=== PATIENT | female | born 1935 | race Caucasian/White ===

== ENCOUNTER → 2024-08-03 14:22 | Outpatient (CLI) | payer MEDICARE, OTHER, SELFPAY ==
--- NOTE | 2024-08-03 14:32 | DI.MRI.S_ITS ---
PROCEDURE: MR HIP RT WO CON INDICATIONS: RT GROIN PAIN,RT HIP PAIN TECHNIQUE: Noncontrast coronal T1 spin echo and STIR through the bony pelvis. Coronal and axial T2 fast spin echo with fat saturation, sagittal T1 spin echo, and oblique axial T2 fast spin echo with fat saturation through the hip. COMPARISON: None. FINDINGS: Image quality: Excellent. Bones: The marrow signal is heterogenous, which may be secondary to underlying red marrow reconversion or osteopenia. Additionally, there is marrow edema at the right subcapital femoral neck (3/17), with corresponding T1 hypointense fracture lines. There is no femoral head osteonecrosis at this time. 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 There is no significant hip joint effusion. Pericapsular edema is present around the right hip secondary to the recent fracture (3/17). Acetabular cartilage: There is mild thinning of the right hip central acetabular cartilage (6/13) Labrum: There is blunting of the right hip anterior-superior labrum, likely secondary to chronic labral tearing. Bursae: There is a small amount of fluid in the left hip greater trochanteric bursa (3/14) along with fluid signal along the distal iliotibial band (3/17). There is a trace amount of fluid in the right greater trochanteric bursa (3/15). Muscles: Mild intramuscular edema is present in the right gluteus minimus/medius musculature (3/19) as well as the proximal right abductor musculature (4/29). 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 Tendons: There is fluid signal involving the majority of the right hamstring tendon origin at the ischial tuberosity (3/12). There is intermediate signal involving the insertions of the bilateral gluteus minimus and medius tendons on the greater trochanters bilaterally. Nerves: The right sciatic nerve is normal in signal and caliber. Vessels: The dominant flow voids are preserved. Other: Moderate lower lumbar osteoarthrosis (2/13). IMPRESSION: 1. Subacute right proximal femoral subcapital neck fracture with reactive pericapsular edema and adjacent muscle strains. 2. High-grade partial tearing of the right hamstring origin tendon with superimposed tendinosis. 3. Mild left hip and trace right hip greater trochanteric bursitis. 4. Partial tear of the left distal iliotibial band. 5. Mild tendinosis involving the bilateral gluteus minimus and medius tendon attachments at the greater trochanters. Dictated by: Alejandro Zavala M.D. on 08/03/2024 at 16:56 Approved by: Alejandro Zavala M.D. on 08/03/2024 at 17:06
== END ==
PROVIDERS: PCP Specialist; Referring Provider Specialist; Visit Provider Specialist
DX: S76.811A Strain of other specified muscles, fascia and tendons at thigh level, right thigh, initial encounter (principal); S72.011A Unspecified intracapsular fracture of right femur, initial encounter for closed fracture; S76.012A Strain of muscle, fascia and tendon of left hip, initial encounter; M16.0 Bilateral primary osteoarthritis of hip; M71.552 Other bursitis, not elsewhere classified, left hip; M47.898 Other spondylosis, sacral and sacrococcygeal region; M25.551 Pain in right hip; R10.31 Right lower quadrant pain
CPT/HCPCS: 73721

== ENCOUNTER 2024-08-03 15:40 | Inpatient (IN) | payer MEDICARE, OTHER, SELFPAY ==
[2024-08-03] VITALS (18 sets, daily range): BP systolic 157–206; BP diastolic 64–91; PULSE 73–82; RESP 18–19; TEMP 36.9–37.1; O2SAT 91–98; BMI 23.3; BMI 23.8
--- NOTE | 2024-08-03 17:12 | DI.RAD.S_ITS ---
PROCEDURE: XR CHEST 1V INDICATIONS: preop TECHNIQUE: One view of the chest was acquired. COMPARISON: [facility], MR, MR HIP RT WO CON, 08/03/2024, 14:43. FINDINGS: Surgical changes and devices: None. Lungs and pleura: Lungs are clear. No pleural effusions or pneumothorax. Mediastinum: Mediastinal contours appear normal. Heart size is normal. Bones and chest wall: No suspicious bony lesions. Overlying soft tissues appear unremarkable. IMPRESSION: No acute cardiopulmonary abnormality is seen. Dictated by: Asher Eubanks M.D. on 08/03/2024 at 18:06 Approved by: Asher Eubanks M.D. on 08/03/2024 at 18:08
--- NOTE | 2024-08-03 17:12 | ED.RECABL ---
HPI - Recheck/Abnormal Lab/Rx <Kaleb Casanova MD - Last Filed: 08/03/24 17:12> General Chief Complaint: Recheck/Abnormal Lab/Rx Stated Complaint: sent over from MRI something wrong Time Seen by Provider: 08/03/24 17:10 Source: patient Mode of arrival: Wheelchair Related Data Allergies Allergy/AdvReac Type Severity Reaction Status Date / Time bee venom protein (honey bee) Allergy Anaphylaxis Verified 08/03/24 15:53 Penicillins Allergy Rash Verified 08/03/24 15:53 <Jeff Palafox DO - Last Filed: 08/03/24 21:22> History of Present Illness HPI narrative: 89-year-old female with a history of hypertension presenting for abnormal MRI of her right hip, states that she had a mechanical trip and fall approximately 2 weeks ago was able to stand bear weight ambulate but had persistent/worsening pain to her right hip therefore her primary care doctor ordered MRI, was obtained here and showed fracture of the hip therefore we instructed come into the ED. denies any other symptoms at this time no head strike no LOC not on any blood thinners Review of Systems <Jeff Palafox DO - Last Filed: 08/03/24 21:22> Review of Systems Narrative: General: Denies fever, chills, weight loss HEENT: Denies headache, eye drainage, eye irritation, head trauma, sore throat, voice change Cardiovascular: Denies any chest pain, palpitations, shortness of breath, tachycardia Respiratory: Denies any shortness of breath, cough, wheeze, stridor GI/: Denies any abdominal pain, nausea, vomiting, diarrhea, bright red blood per rectum, melanotic stools, urinary frequency, urinary retention, dysuria, hematuria MSK: Positive right hip pain Skin: Denies any rashes, lesions, discoloration Neuro: Denies any headache, lightheadedness, dizziness, fainting, weakness Psych: Denies SI/HI Patient History <Kaleb Casanova MD - Last Filed: 08/03/24 17:12> Medical History (Updated 08/03/24 @ 21:03 by Maxine Beasley MD) Hypertension, uncontrolled Closed fracture of right hip Social History Smoking Status: Never smoker Smoking Status: Never smoker Exam <Kaleb Casanova MD - Last Filed: 08/03/24 17:12> Initial Vital Signs Initial Vital Signs: Vital Signs Temperature 98.8 F 08/03/24 15:53 Pulse Rate 79 08/03/24 15:53 Respiratory Rate 18 08/03/24 15:53 Blood Pressure 176/78 H 08/03/24 15:53 Pulse Oximetry 96 08/03/24 15:53 Oxygen Delivery Method Room Air 08/03/24 15:53 <Jeff Palafox DO - Last Filed: 08/03/24 21:22> Narrative Exam Narrative: General: Cooperative, comfortable, well-developed, not in acute distress HEENT: Normocephalic, atraumatic, PERRLA, normal sclera, eyelids normal, Neck: Active full range of motion, atraumatic Chest: Normal to inspection, negative crepitus, no overlying erythema ecchymosis Respiratory: Normal respiratory effort, not in acute respiratory distress, clear to auscultation bilaterally negative cough, wheeze, tachypnea, rhonchi, rales Cardiology: Regular rate rhythm negative gallop, murmur, rubs GI/: Normal to inspection, soft, nonrigid, no tenderness to palpation, exam deferred MSK: Patient with decreased active passive range of motion of the right hip secondary to pain, however lower extremity neurovascularly intact Skin: No rashes lesions noted Neuro: Alert awake oriented x3, moves all 4 extremities spontaneously, cranial nerves intact, able to answer all questions appropriately follows commands appropriately Psych: Cooperative, negative suicidal or homicidal ideations Initial Vital Signs Initial Vital Signs: Vital Signs Temperature 98.8 F 08/03/24 15:53 Pulse Rate 79 08/03/24 15:53 Respiratory Rate 18 08/03/24 15:53 Blood Pressure 176/78 H 08/03/24 15:53 Pulse Oximetry 96 08/03/24 15:53 Oxygen Delivery Method Room Air 08/03/24 15:53 Course <Kaleb Casanova MD - Last Filed: 08/03/24 17:12> Orders Ordered: ED Orders 08/03/24 17:12 Chest [XR chest 1V] Stat EKG-12 Lead Stat 08/03/24 17:55 CBC Auto Diff [Complete Blood Count AUTO DIFF] Stat CMP [Comprehensive Metabolic Panel] Stat Prothrombin Time INR Stat 08/03/24 19:45 XR hip w pel if done RT 2V Stat Discontinued Medications Amlodipine Besylate (Amlodipine 5 Mg Tablet) 2.5 mg PO NOW ONE Stop: 08/03/24 19:42 Last Admin: 08/03/24 19:52 Dose: 2.5 mg Documented By: MR Hydromorphone HCl (Hydromorphone 0.5 Mg Inj) 0.5 mg IV NOW ONE Stop: 08/03/24 17:13 Last Admin: 08/03/24 17:32 Dose: 0.5 mg Documented By: SRIDHAR Losartan Potassium (Losartan 50 Mg Tablet) 50 mg PO NOW ONE Stop: 08/03/24 19:42 Last Admin: 08/03/24 19:51 Dose: 50 mg Documented By: MR Ondansetron HCl (Ondansetron 4 Mg/2 Ml Inj) 4 mg IV NOW ONE Stop: 08/03/24 17:25 Last Admin: 08/03/24 17:32 Dose: 4 mg Documented By: SRIDHAR Potassium Chloride (Potassium Chloride 20 Meq/15 Ml Udc) 40 meq PO NOW ONE Stop: 08/03/24 20:21 Last Admin: 08/03/24 20:43 Dose: 40 meq Documented By: MR Vital Signs Vital signs: Vital Signs - 8 hr 08/03/24 15:53 08/03/24 17:15 08/03/24 17:30 Temperature 98.8 F Pulse Rate 79 81 Respiratory Rate 18 Blood Pressure 176/78 H 170/74 H Pulse Oximetry 96 96 Oxygen Delivery Method Room Air 08/03/24 17:30 08/03/24 17:54 08/03/24 17:54 Temperature Pulse Rate 80 76 Respiratory Rate Blood Pressure 170/74 H Pulse Oximetry 96 95 Oxygen Delivery Method 08/03/24 18:00 08/03/24 18:00 08/03/24 18:15 Temperature Pulse Rate 75 Respiratory Rate Blood Pressure 167/75 H 157/64 H Pulse Oximetry 94 Oxygen Delivery Method 08/03/24 18:15 08/03/24 18:30 08/03/24 18:30 Temperature Pulse Rate 76 74 Respiratory Rate Blood Pressure 186/86 H Pulse Oximetry 91 97 Oxygen Delivery Method 08/03/24 18:45 08/03/24 18:45 Temperature Pulse Rate 73 Respiratory Rate Blood Pressure 188/77 H Pulse Oximetry 95 Oxygen Delivery Method <Jeff Palafox DO - Last Filed: 08/03/24 21:22> Orders Ordered: ED Orders 08/03/24 17:12 Chest [XR chest 1V] Stat EKG-12 Lead Stat 08/03/24 17:55 CBC Auto Diff [Complete Blood Count AUTO DIFF] Stat CMP [Comprehensive Metabolic Panel] Stat Prothrombin Time INR Stat 08/03/24 19:45 XR hip w pel if done RT 2V Stat Discontinued Medications Amlodipine Besylate (Amlodipine 5 Mg Tablet) 2.5 mg PO NOW ONE Stop: 08/03/24 19:42 Last Admin: 08/03/24 19:52 Dose: 2.5 mg Documented By: Hydromorphone HCl (Hydromorphone 0.5 Mg Inj) 0.5 mg IV NOW ONE Stop: 08/03/24 17:13 Last Admin: 08/03/24 17:32 Dose: 0.5 mg Documented By: SRIDHAR Losartan Potassium (Losartan 50 Mg Tablet) 50 mg PO NOW ONE Stop: 08/03/24 19:42 Last Admin: 08/03/24 19:51 Dose: 50 mg Documented By: MR Ondansetron HCl (Ondansetron 4 Mg/2 Ml Inj) 4 mg IV NOW ONE Stop: 08/03/24 17:25 Last Admin: 08/03/24 17:32 Dose: 4 mg Documented By: SRIDHAR Potassium Chloride (Potassium Chloride 20 Meq/15 Ml Udc) 40 meq PO NOW ONE Stop: 08/03/24 20:21 Last Admin: 08/03/24 20:43 Dose: 40 meq Documented By: Vital Signs Vital signs: Vital Signs - 8 hr 08/03/24 15:53 08/03/24 17:15 08/03/24 17:30 Temperature 98.8 F Pulse Rate 79 81 Respiratory Rate 18 Blood Pressure 176/78 H 170/74 H Pulse Oximetry 96 96 Oxygen Delivery Method Room Air 08/03/24 17:30 08/03/24 17:54 08/03/24 17:54 Temperature Pulse Rate 80 76 Respiratory Rate Blood Pressure 170/74 H Pulse Oximetry 96 95 Oxygen Delivery Method 08/03/24 18:00 08/03/24 18:00 08/03/24 18:15 Temperature Pulse Rate 75 Respiratory Rate Blood Pressure 167/75 H 157/64 H Pulse Oximetry 94 Oxygen Delivery Method 08/03/24 18:15 08/03/24 18:30 08/03/24 18:30 Temperature Pulse Rate 76 74 Respiratory Rate Blood Pressure 186/86 H Pulse Oximetry 91 97 Oxygen Delivery Method 08/03/24 18:45 08/03/24 18:45 Temperature Pulse Rate 73 Respiratory Rate Blood Pressure 188/77 H Pulse Oximetry 95 Oxygen Delivery Method MDM - Recheck/Abnormal Lab/Rx <Kaleb Casanova MD - Last Filed: 08/03/24 17:12> Lab Data 08/03/24 17:55 08/03/24 17:55 Labs: Lab Results 08/03/24 Range/Units 17:55 WBC 8.6 (4.5-11.0) X10^3/uL RBC 4.08 (4.0-5.2) X10^6/uL Hgb 13.2 (12.0-16.0) g/dL Hct 38.8 (36-46) % MCV 95.1 (80-100) fL MCH 32.3 (26-34) PG MCHC 34.0 (30-36) % RDW 13.5 (11.6-14.8) % Plt Count 198 (150-400) X10^3/uL Neut % (Auto) 68.5 (50-75) % Lymph % (Auto) 19.2 L (25-40) % [place] % (Auto) 8.5 (3-14) % Eos % (Auto) 2.8 (2-4) % Baso % (Auto) 1.0 (0-2) % Neut # (Auto) 5900 (0222-9331) /uL Lymph # (Auto) 1700 (0436-7776) /uL [place] # (Auto) 700 (0-900) /uL Eos # (Auto) 200 (0-450) /uL Baso # (Auto) 100 (0-100) /uL PT 11.3 (9.4-12.5) SECONDS INR 1.0 (0.9-1.3) Sodium 138 (137-145) mmol/L Potassium 3.3 L (3.4-5.1) mmol/L Chloride 103 (98-107) mmol/L Carbon Dioxide 27 (22-32) mmol/L BUN 22 H (7-17) mg/dL Creatinine 0.66 (0.52-1.04) mg/dL Estimated GFR > 60 (>60) mL/min BUN/Creatinine Ratio 33.3 H (6-22) Glucose 89 (80-110) mg/dL Calcium 8.9 (8.4-10.2) mg/dL Total Bilirubin 1.0 (0.2-1.3) mg/dL AST 26 (14-36) IU/L ALT 16 (<35) IU/L Alkaline Phosphatase 57 (38-126) U/L Total Protein 6.8 (6.3-8.2) g/dL Albumin 4.1 (3.5-5.0) g/dL Globulin 2.7 (1.7-4.1) g/dL Albumin/Globulin Ratio 1.5 (1.0-2.8) <Jeff Palafox DO - Last Filed: 08/03/24 21:22> Differential Diagnosis Differential diagnosis: Likely other (Fracture contusion) Lab Data Labs: Lab Results 08/03/24 Range/Units 17:55 WBC 8.6 (4.5-11.0) X10^3/uL RBC 4.08 (4.0-5.2) X10^6/uL Hgb 13.2 (12.0-16.0) g/dL Hct 38.8 (36-46) % MCV 95.1 (80-100) fL MCH 32.3 (26-34) PG MCHC 34.0 (30-36) % RDW 13.5 (11.6-14.8) % Plt Count 198 (150-400) X10^3/uL Neut % (Auto) 68.5 (50-75) % Lymph % (Auto) 19.2 L (25-40) % [place] % (Auto) 8.5 (3-14) % Eos % (Auto) 2.8 (2-4) % Baso % (Auto) 1.0 (0-2) % Neut # (Auto) 5900 (9343-8154) /uL Lymph # (Auto) 1700 (5606-6666) /uL [place] # (Auto) 700 (0-900) /uL Eos # (Auto) 200 (0-450) /uL Baso # (Auto) 100 (0-100) /uL PT 11.3 (9.4-12.5) SECONDS INR 1.0 (0.9-1.3) Sodium 138 (137-145) mmol/L Potassium 3.3 L (3.4-5.1) mmol/L Chloride 103 (98-107) mmol/L Carbon Dioxide 27 (22-32) mmol/L BUN 22 H (7-17) mg/dL Creatinine 0.66 (0.52-1.04) mg/dL Estimated GFR > 60 (>60) mL/min BUN/Creatinine Ratio 33.3 H (6-22) Glucose 89 (80-110) mg/dL Calcium 8.9 (8.4-10.2) mg/dL Total Bilirubin 1.0 (0.2-1.3) mg/dL AST 26 (14-36) IU/L ALT 16 (<35) IU/L Alkaline Phosphatase 57 (38-126) U/L Total Protein 6.8 (6.3-8.2) g/dL Albumin 4.1 (3.5-5.0) g/dL Globulin 2.7 (1.7-4.1) g/dL Albumin/Globulin Ratio 1.5 (1.0-2.8) Imaging Data MRi hip: Radiologist's Impression: [place] [address] Magnetic Resonance Report Signed Patient: Rebecca Carpenter MR#: [id number] : 1935 Acct:[id number] Age/Sex: 89 / F Date of Service: 08/03/24 Loc: MRI Accession Number: [id number] Procedure: MR hip RT wo con Ordering Provider: Kalie Barragan MD PROCEDURE: MR HIP RT WO CON INDICATIONS: RT GROIN PAIN,RT HIP PAIN TECHNIQUE: Noncontrast coronal T1 spin echo and STIR through the bony pelvis. Coronal and axial T2 fast spin echo with fat saturation, sagittal T1 spin echo, and oblique axial T2 fast spin echo with fat saturation through the hip. COMPARISON: None. FINDINGS: Image quality: Excellent. Bones: The marrow signal is heterogenous, which may be secondary to underlying red marrow reconversion or osteopenia. Additionally, there is marrow edema at the right subcapital femoral neck (09/12), with corresponding T1 hypointense fracture lines. There is no femoral head osteonecrosis at this time. 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 There is no significant hip joint effusion. Pericapsular edema is present around the right hip secondary to the recent fracture (3/17). Acetabular cartilage: There is mild thinning of the right hip central acetabular cartilage (6/13) Labrum: There is blunting of the right hip anterior-superior labrum, likely secondary to chronic labral tearing. Bursae: There is a small amount of fluid in the left hip greater trochanteric bursa (3/14) along with fluid signal along the distal iliotibial band (3/17). There is a trace amount of fluid in the right greater trochanteric bursa (3/15). Muscles: Mild intramuscular edema is present in the right gluteus minimus/medius musculature (3/19) as well as the proximal right abductor musculature (4/29). 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 Tendons: There is fluid signal involving the majority of the right hamstring tendon origin at the ischial tuberosity (3/12). There is intermediate signal involving the insertions of the bilateral gluteus minimus and medius tendons on the greater trochanters bilaterally. Nerves: The right sciatic nerve is normal in signal and caliber. Vessels: The dominant flow voids are preserved. Other: Moderate lower lumbar osteoarthrosis (2/13). IMPRESSION: 1. Subacute right proximal femoral subcapital neck fracture with reactive pericapsular edema and adjacent muscle strains. 2. High-grade partial tearing of the right hamstring origin tendon with superimposed tendinosis. 3. Mild left hip and trace right hip greater trochanteric bursitis. 4. Partial tear of the left distal iliotibial band. 5. Mild tendinosis involving the bilateral gluteus minimus and medius tendon attachments at the greater trochanters. MDM Narrative Medical decision making narrative: 1800: (Dr. Palafox) Received sign-out from morning provider, patient presenting for abnormal MRI, states that she had a mechanical trip and fall few weeks ago has been having pain since outpatient MRI showing hip fracture, pending lab work ortho consulted admission/further recommendation. 194: Had discussion with orthopedic surgeon Dr. Caro who recommends obtaining plain x-rays of the right hip, states it keep patient NPO we will plan to fix/send her to surgery tomorrow morning recommending admission to the hospitalist. Call placed out the hospitalist for admission. The patient's management plan was discussed Dr. Beasley, who agrees to admit the patient to their service and assumes care of this patient at this time. Full admission orders will be placed by the primary team. Discharge Plan Departure Patient Disposition: Admitted As Inpatient Clinical Impression: Closed fracture of right hip Admit Date/Time: 08/03/24 20:21 Admit Provider: Maxine Beasley
--- NOTE | 2024-08-03 17:22 | EKG_ITS ---
[facility] [address] [place] [address] Test Date: 2024-08-03 Pat Name: Rebecca Carpenter Department: [facility] Room: Gender: Female [employer] Adjuster: HUA : 1935 Requested By: Order Number: [id number] Reading MD: Jeff Mckeon Measurements Intervals [place] Rate: 79 P: 52 MO: 200 QRS: 32 QRSD: 100 T: 48 QT: 400 QTc: 458 Interpretive Statements Sinus rhythm with premature supraventricular complexes Left ventricular hypertrophy with repolarization abnormality ( Sokolow-Vale , Sae product ) Electronically Signed On 08-03-2024 23:46:27 PST by Jeff Mckeon
[2024-08-03] MEDS: ONDANSETRON 4 MG/2 ML INJ IV ×2 (17:32→22:41)
[2024-08-03] MEDS: HYDROMORPHONE 0.5 MG INJ IV ×2 (17:32→22:31)
[2024-08-03 18:01] LABS: Add Manual Diff / Slide Review NO; Basophils Absolute Auto 100 /uL (0-100); Eosinophils Absolute Auto 200 /uL (0-450); Eosinophils Percent Auto 2.8 % (2-4); Hematocrit 38.8 % (36-46); Hemoglobin 13.2 g/dL (12.0-16.0); Lymphocytes Absolute Auto 1700 /uL (1100-4500); Lymphocytes Percent Auto 19.2 % (25-40); Mean Corpuscular Hemoglobin 32.3 PG (26-34); Mean Corpuscular Volume 95.1 fL (80-100); Monocytes Absolute Auto 700 /uL (0-900); Monocytes Percent Auto 8.5 % (3-14); Neutrophils Absolute Auto 5900 /uL (1500-7000); Neutrophils Percent Auto 68.5 % (50-75); Platelet Count 198 X10^3/uL (150-400); Red Blood Cell Count 4.08 X10^6/uL (4.0-5.2); Red Cell Distribution Width 13.5 % (11.6-14.8); White Blood Cell Count 8.6 X10^3/uL (4.5-11.0)
[2024-08-03 18:09] LABS: Prothrombin Time 11.3 SECONDS (9.4-12.5)
[2024-08-03 18:22] LABS: Alanine Aminotransferase 16 IU/L (<35); Albumin 4.1 g/dL (3.5-5.0); Albumin Globulin Ratio 1.5 (1.0-2.8); Alkaline Phosphatase 57 U/L (38-126); Aspartate Aminotransferase 26 IU/L (14-36); BUN Creatinine Ratio 33.3 (6-22); Blood Urea Nitrogen 22 mg/dL (7-17); Calcium 8.9 mg/dL (8.4-10.2); Carbon Dioxide 27 mmol/L (22-32); Chloride 103 mmol/L (98-107); Estimated Glomerular Filt Rate > 60 mL/min (>60); Globulin 2.7 g/dL (1.7-4.1); Glucose 89 mg/dL (80-110); HEMOLYSIS < 15 (0-50); Potassium 3.3 mmol/L (3.4-5.1); Sodium 138 mmol/L (137-145); Total Protein 6.8 g/dL (6.3-8.2)
--- NOTE | 2024-08-03 19:45 | DI.RAD.S_ITS ---
PROCEDURE: XR HIP W PEL IF DONE RT 2V INDICATIONS: hip fx TECHNIQUE: AP pelvis with lateral view(s) of the right hip(s). COMPARISON: None. FINDINGS: Bones: Acute fracture involving subcapital region of right femoral neck with superior and anterior displacement of proximal femur in relation to femoral head. Moderate bilateral hip joint osteoarthritic changes are seen. No evidence of avascular necrosis of femoral head. Pelvic ring appears intact. No suspicious bony lesions. Soft tissues: The visualized bowel gas pattern is normal. No suspicious soft tissue calcifications. IMPRESSION: Acute displaced fracture involving subcapital region of right femoral neck as above. Dictated by: Henry Diallo M.D. on 08/03/2024 at 20:36 Approved by: Henry Diallo M.D. on 08/03/2024 at 20:37
[2024-08-03] MEDS: LOSARTAN 50 MG TABLET PO (19:51)
[2024-08-03] MEDS: AMLODIPINE 5 MG TABLET 2.5 MG PO (19:52)
[2024-08-03] MEDS: POTASSIUM CHLORIDE 20 MEQ/15 ML UDC 40 MEQ PO (20:43)
--- NOTE | 2024-08-03 20:57 | P.HP_ITS ---
History of Present Illness History of Present Illness Date Patient Seen: 08/03/24 Chief complaint: sent over from MRI something wrong R hip pain Narrative: Rebecca Carpenter is an 89 y/o F with history of HTN, HLD, Hypokalemia ( takes Potasium supplement) Post menopausal hormone replacement, Anxiety, who gives history of tripping on a mat in her kitchen, and falling on her R side on to the kitchen's hard wood floor, she did not hit her head, and remained conscious, throughout, she was able to get up, and had been able to bear weight on her RLE, however with on going moderate Pain in her R hip. Her fall occurred about 2 weeks ago, on a Thursday. On following Thursday she was seen at local ED ( pt lives at one of the [facility]), an XR of her R hip done, and pt was told, no fracture of her R hip seen. She went home, but continued with R hip pain, on weight bearing especialy on her RLE. She saw her PCP, last , and a routine MRI of R hip ordered. Pt was able to have her MRI R hip done and was sent from MRI to ED at , for evaluation, given a R hip Femoral Neck fracture noted on this study. Pt denies CP, SOB, f/c, cough, abd pain, N/V/ Dysuria or Flank pain.Denies headache or neck pain. In ED, her SBP was elevated, at 188/77,rest of her VS were stable. Her O2 sats were adequate on RA Labs : mild Hypokalemia, K : 3.3, otherwise unremarkable She was given Dilaudid 0.5 mg IV Also given Amlodipine 2.5 mg po once and Losartan 50 mg po once Recd Zofran x once Dr Caro with Orthopedics consulted by ED, and Dr Caro agreed referring pt for admission to hospitalist, pt to be NPO after mn, and ortho planning R hip surgery for the morning. COUNTS INCLUDE 234 BEDS AT THE [facility] Medical History Hypertension, uncontrolled Closed fracture of right hip Social History household members: spouse Smoking Status: Never smoker Meds Home Medications and Allergies Home Medications Medication Instructions Recorded Confirmed Type Allergy (diphenhydramine) 50 mg PO PRN PRN Dizziness Or 08/03/24 08/03/24 History Vertigo acetaminophen 500 mg tablet 500 mg PO QID PRN Pain (Scale 08/03/24 08/03/24 History Score 1-3) amlodipine 2.5 mg tablet 5 mg DAILY 08/03/24 08/03/24 History cholecalciferol (vitamin D3) 2,000 units PO DAILY 08/03/24 08/03/24 History estradiol 0.01% (0.1 mg/gram) 1 g vaginal 3XW 08/03/24 08/03/24 History vaginal cream lidocaine 5 % topical patch 1 patch topical DAILY PRN Back Pain 08/03/24 08/03/24 History losartan 50 mg tablet 50 mg PO BID 08/03/24 08/03/24 History potassium chloride 10 mEq 10 meq PO DAILY 08/03/24 08/03/24 History capsule,extended release pravastatin 20 mg tablet 20 mg DAILY 08/03/24 08/03/24 History promethazine 25 mg rectal 25 mg WA Q6H PRN nausea/vomiting 08/03/24 08/03/24 History suppository (Promethegan) propranolol 120 mg capsule,24 120 mg PO ONCE PM 08/03/24 08/03/24 History hr,extended release propranolol 40 mg tablet 40 mg PRN PRN arrythmia 08/03/24 08/03/24 History propranolol 80 mg capsule,24 80 mg PO QAM 08/03/24 08/03/24 History hr,extended release triazolam 0.25 mg tablet 0.125 mg PO ONCE PM PRN Dizziness 08/03/24 08/03/24 History Or Vertigo Allergies Allergy/AdvReac Type Severity Reaction Status Date / Time bee venom protein (honey bee) Allergy Anaphylaxis Verified 08/03/24 15:53 Penicillins Allergy Rash Verified 08/03/24 15:53 Review of Systems Review of Systems ROS: Yes All systems reviewed with the patient and are negative except as otherwise documented Exam Vital Signs (past 8 hours): - 08/03/24 15:53 08/03/24 17:15 08/03/24 17:30 Temperature 98.8 F Pulse Rate 79 81 Respiratory Rate 18 Blood Pressure 176/78 H 170/74 H Pulse Oximetry 96 96 Oxygen Delivery Method Room Air 08/03/24 17:30 08/03/24 17:54 08/03/24 17:54 Temperature Pulse Rate 80 76 Respiratory Rate Blood Pressure 170/74 H Pulse Oximetry 96 95 Oxygen Delivery Method 08/03/24 18:00 08/03/24 18:00 08/03/24 18:15 Temperature Pulse Rate 75 Respiratory Rate Blood Pressure 167/75 H 157/64 H Pulse Oximetry 94 Oxygen Delivery Method 08/03/24 18:15 08/03/24 18:30 08/03/24 18:30 Temperature Pulse Rate 76 74 Respiratory Rate Blood Pressure 186/86 H Pulse Oximetry 91 97 Oxygen Delivery Method 08/03/24 18:45 08/03/24 18:45 Temperature Pulse Rate 73 Respiratory Rate Blood Pressure 188/77 H Pulse Oximetry 95 Oxygen Delivery Method Oxygen Delivery Method Room Air Narrative Exam Narrative: Physical Exam: Pleasant elderly female. Patient's is at her bedside. A and O x 3 in No acute distress HEENT: EOMI, PERRL, anicteric Sclerae, Neck is supple, No TMG, No Lymph Adenopathy ?Chest : Unlabored Respirations. Able to speak in full sentences and answering questions appropriately . ? BS equal bilat.? No Wheezing, Rales or Rhonchi Heart: ELVIA ,Regular rate and rhythm,? S1 S2, No G/Rub Abd : Soft NT, ND, No HSM, BS present and WNL, no flank Tenderness Ext : No Edema? bilat, no Calf Tenderness bilat. pp 2+ bilat Musculo skeletal: Decreased ROM RLE , mild tenderness overlying R hip Neuro: Non focal , No Convulsions or abn movements. Cranial N 2-12 tested and Intact ? DTR's 3 + symmetric ? No Motor or Sensory deficit PSYCH: Good Judgement and insight , Mood : WNL Objective ECG Impression: I personally reviewed EKG : Sinus rhythm with occasional PVCs, , HR 79. LVH with reploarization abnormalities, no acute ST- T wave changes Imaging MRI - lumbar: Radiologist's impression: MRI R hip done 08-03-[address] [address] Magnetic Resonance Report Signed Patient: Rebecca Carpenter MR#: [id number] : 1935 Acct:[id number] Age/Sex: 89 / F Date of Service: 08/03/24 Loc: MRI Accession Number: [id number] Procedure: MR hip RT wo con Ordering Provider: Kalie Barragan MD PROCEDURE: MR HIP RT WO CON INDICATIONS: RT GROIN PAIN,RT HIP PAIN TECHNIQUE: Noncontrast coronal T1 spin echo and STIR through the bony pelvis. Coronal and axial T2 fast spin echo with fat saturation, sagittal T1 spin echo, and oblique axial T2 fast spin echo with fat saturation through the hip. COMPARISON: None. FINDINGS: Image quality: Excellent. Bones: The marrow signal is heterogenous, which may be secondary to underlying red marrow reconversion or osteopenia. Additionally, there is marrow edema at the right subcapital femoral neck (3/17), with corresponding T1 hypointense fracture lines. There is no femoral head osteonecrosis at this time. 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 There is no significant hip joint effusion. Pericapsular edema is present around the right hip secondary to the recent fracture (3/17). Acetabular cartilage: There is mild thinning of the right hip central acetabular cartilage (6/13) Labrum: There is blunting of the right hip anterior-superior labrum, likely secondary to chronic labral tearing. Bursae: There is a small amount of fluid in the left hip greater trochanteric bursa (3/14) along with fluid signal along the distal iliotibial band (3/17). There is a trace amount of fluid in the right greater trochanteric bursa (3/15). Muscles: Mild intramuscular edema is present in the right gluteus minimus/medius musculature (3/19) as well as the proximal right abductor musculature (4/29). 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 Tendons: There is fluid signal involving the majority of the right hamstring tendon origin at the ischial tuberosity (3/12). There is intermediate signal involving the insertions of the bilateral gluteus minimus and medius tendons on the greater trochanters bilaterally. Nerves: The right sciatic nerve is normal in signal and caliber. Vessels: The dominant flow voids are preserved. Other: Moderate lower lumbar osteoarthrosis (08/11). IMPRESSION: 1. Subacute right proximal femoral subcapital neck fracture with reactive pericapsular edema and adjacent muscle strains. 2. High-grade partial tearing of the right hamstring origin tendon with superimposed tendinosis. 3. Mild left hip and trace right hip greater trochanteric bursitis. 4. Partial tear of the left distal iliotibial band. 5. Mild tendinosis involving the bilateral gluteus minimus and medius tendon attachments at the greater trochanters. Chest x-ray: Radiologist's impression: No acute changes. WNL XR R hip: Radiologist's impression: R femoral neck fracture Labs 08/03/24 17:55 08/03/24 17:55 Labs: Laboratory Results - last 24 hr 08/03/24 17:55 WBC 8.6 RBC 4.08 Hgb 13.2 Hct 38.8 MCV 95.1 MCH 32.3 MCHC 34.0 RDW 13.5 Plt Count 198 Neut % (Auto) 68.5 Lymph % (Auto) 19.2 L Shannon % (Auto) 8.5 Eos % (Auto) 2.8 Baso % (Auto) 1.0 Neut # (Auto) 5900 Lymph # (Auto) 1700 Shannon # (Auto) 700 Eos # (Auto) 200 Baso # (Auto) 100 PT 11.3 INR 1.0 Sodium 138 Potassium 3.3 L Chloride 103 Carbon Dioxide 27 BUN 22 H Creatinine 0.66 Estimated GFR > 60 BUN/Creatinine Ratio 33.3 H Glucose 89 Calcium 8.9 Total Bilirubin 1.0 AST 26 ALT 16 Alkaline Phosphatase 57 Total Protein 6.8 Albumin 4.1 Globulin 2.7 Albumin/Globulin Ratio 1.5 Assessment & Plan Assessment and plan (1) Closed fracture of right hip: Problem details: Patient sustained a R sided Proximal Femoral neck fracture secondary to a Ground level fall in her kitchen a few weeks ago. R hip XR per her then ED visit : no fracture of R hip noted Continued with R hip pain. myra on RLE weight bearing: had MRI R hip done today indicating R Femoral Neck Fracture/ Pt referred to ED Qualifiers: Encounter type: initial encounter Qualified Code(s): S72.001A - Fracture of unspecified part of neck of right femur, initial encounter for closed fracture Status: Acute Plan: Judicious Pain control, Percocet prn, Dilaudid 0.5 mg IV q [address] Caro with Orthopedics consulted per ED, and Dr Caro has advised:NPO after midnight Plan for R hip Surgery in the morning. IVF maintenance over night , as well as likely dehydrated given mild elevated BUN Continuos Pulse ox ( given narcotic medications) Keep O2 sats > 92% Hold Pharmacologic DVT prophylaxis in anticipation of R hip surgery in the morning. Continue SCDs (2) Hypertension, uncontrolled: Problem details: Pt has h/o HTN, and takes Anti HTN meds at home , including Losartan. She had elevated SBP in ERD, likely sec to R hip pain/ discomfort, was given Amlodipine 2.5 mg po once , and her Home dose of Losartan, with improvement on her SBPs. Status: Acute Plan Closely monitor BPs Recd Amlodipine 2.5 mg po and Losartan 50 mg po in ED, with SBP improvement. Continue home Anti HTNsive meds While NPO: give Hydralazine 10 mg IV q 6-8 hrs prn for SBP > 155 Assessment & Plan narrative: R sided Hip fracture after Ground level fall. Orthopedic consult, with Dr Caro obtained by ED Provider, and Dr Caro agrees with admitting patient to Hospitalist service, advises NPO after midnight for R hip surgical procedure in the moprning. Continue Judicial Pain control, Percopcet po , and Dilaudid 0.5 mg IV prn as ordered. PT/OT consult HTN / SBP not well controlled in ED, likely sec to R hip discomfort. Pt was given Amlodipine 2.5 mg po once and Losartan in ED , with improvement in her SBPs. Continue monitoring BPs. Time-Based Coding :: [TOTAL MINUTES] spent with patient and on the chart (including review of chart, obtaining history, exam, reviewing outside data, placing orders, documenting exam and treatment plan, and counseling patient) on [DATE].
[2024-08-03] MEDS: DEXTROSE 5%-0.45% NS 1,000 ML 100 ML IV (21:55)
[2024-08-03 22:08] LABS: Magnesium 2.1 mg/dL (1.6-2.3)
[2024-08-03] MEDS: POTASSIUM CHLORIDE IN WATER 10 MEQ/100 ML PIGGYBACK 100 MEQ IV (22:42)
[2024-08-03] MEDS: KETOROLAC 30 MG/ML VIAL IV (22:43)
[2024-08-04] VITALS (26 sets, daily range): BP systolic 72–162; BP diastolic 44–75; PULSE 66–141; RESP 11–112; TEMP 36.3–37.2; O2SAT 84–795; BMI 23.8
[2024-08-04] MEDS: HYDRALAZINE 20 MG/ML VIAL 10 MG IV
--- NOTE | 2024-08-04 | DI.RAD.S_ITS ---
PROCEDURE: XR PELVIS 1-2V INDICATIONS: Inta OP R Hip TECHNIQUE: Intra-operative view of the pelvis and hip acquired. COMPARISON: None. FINDINGS: Bones: Intraoperative devices prior to placement of arthroplasty prostheses are in expected positions. No fractures or suspicious bony lesions. Soft tissues: Overlying surgical retractors are present, along with other intraoperative changes. IMPRESSION: Single intraoperative fluoroscopic image of right hip arthroplasty. Please see separately dictated operative report for full details. Approved by: Mady Biggs M.D.,Ph.D. on 08/04/2024 at 16:24
--- NOTE | 2024-08-04 | DI.RAD.S_ITS ---
PROCEDURE: XR HIP W PEL IF DONE RT 2V INDICATIONS: POST OP RT HIP TECHNIQUE: 2 view(s) of the hip acquired. COMPARISON: [facility], [place], XR PELVIS 1-2V, 08/04/2024, 15:32. [facility], [place], XR HIP W PEL IF DONE RT 2V, 08/03/2024, 19:42. FINDINGS: Bones: Patient is status post right hip arthroplasty, with hardware components in expected positions. The hip joint appears congruent. [place] at the right greater trochanter. The visualized bony structures appear intact. Soft tissues: Overlying postoperative changes are noted. No suspicious soft tissue densities. IMPRESSION: Expected post-operative appearance of a hip arthroplasty. Dictated by: Yoshi Sandoval M.D. on 08/04/2024 at 18:03 Approved by: Yoshi Sandoval M.D. on 08/04/2024 at 18:07
[2024-08-04] MEDS: POTASSIUM CHLORIDE IN WATER 10 MEQ/100 ML PIGGYBACK 50 MEQ IV ×3 (00:30→04:42)
--- NOTE | 2024-08-04 07:41 | PT-IP ANOTE ---
Pt with PT consult and found to have acute displaced fracture involving subcapital region of right femoral neck. Pt is on bedrest. Will d/c PT order. Please reorder after surgery/as pt appropriate to mobilize.
[2024-08-04 07:52] LABS: Add Manual Diff / Slide Review NO; Basophils Absolute Auto 100 /uL (0-100); Eosinophils Absolute Auto 200 /uL (0-450); Eosinophils Percent Auto 3.1 % (2-4); Hematocrit 35.2 % (36-46); Hemoglobin 12.1 g/dL (12.0-16.0); Lymphocytes Absolute Auto 1600 /uL (1100-4500); Lymphocytes Percent Auto 21.8 % (25-40); Mean Corpuscular HGB Conc 34.3 % (30-36); Mean Corpuscular Hemoglobin 32.7 PG (26-34); Mean Corpuscular Volume 95.3 fL (80-100); Monocytes Absolute Auto 600 /uL (0-900); Monocytes Percent Auto 7.8 % (3-14); Neutrophils Absolute Auto 4700 /uL (1500-7000); Neutrophils Percent Auto 66.3 % (50-75); Platelet Count 173 X10^3/uL (150-400); Red Blood Cell Count 3.69 X10^6/uL (4.0-5.2); Red Cell Distribution Width 13.5 % (11.6-14.8); White Blood Cell Count 7.2 X10^3/uL (4.5-11.0)
--- NOTE | 2024-08-04 08:03 | P.PN_ITS ---
Subjective Subjective Interval history: Summary: Rebecca Carpenter is an 89 y/o F with history of HTN, HLD, Hypokalemia ( takes Potasium supplement) Post menopausal hormone replacement, Anxiety, who gives history of tripping on a mat in her kitchen, and falling on her R side on to the kitchen's hard wood floor, she did not hit her head, and remained conscious, throughout, she was able to get up, and had been able to bear weight on her RLE, however with on going moderate Pain in her R hip. Her fall occurred about 2 weeks ago, on a Thursday. On following Thursday she was seen at local ED ( pt lives at one of the [facility]), an XR of her R hip done, and pt was told, no fracture of her R hip seen. She went home, but continued with R hip pain, on weight bearing especialy on her RLE. She saw her PCP, last , and a routine MRI of R hip ordered. Pt was able to have her MRI R hip done and was sent from MRI to ED at , for evaluation, given a R hip Femoral Neck fracture noted on this study. S: Her pain is reasonably well controlled with her pain medications, she does have nausea. She also notes a chronic history of Meniere's disease. Exam Vital Signs (past 8 hours): - 08/04/24 00:50 08/04/24 00:50 08/04/24 04:00 Temperature 97.6 F Pulse Rate 78 88 Respiratory Rate 18 Blood Pressure 118/60 118/60 124/61 Pulse Oximetry 97 Oxygen Flow Rate 2 Oxygen Delivery Method Nasal Cannula Oxygen Flow Rate 2 Narrative Exam Narrative: NAD, alert and oriented. Fluent speech. Lungs are clear, normal rate and effort. Heart is regular, no murmur gallop or rub. Abdomen is soft, non distended. Extremities are free of edema. Objective Imaging Hip MRI:: Radiologist's impression: 1. Subacute right proximal femoral subcapital neck fracture with reactive pericapsular edema and adjacent muscle strains. 2. High-grade partial tearing of the right hamstring origin tendon with superimposed tendinosis. 3. Mild left hip and trace right hip greater trochanteric bursitis. 4. Partial tear of the left distal iliotibial band. 5. Mild tendinosis involving the bilateral gluteus minimus and medius tendon attachments at the greater trochanters. Labs 08/04/24 07:40 08/04/24 07:40 Labs: Laboratory Results - last 24 hr 08/03/24 08/03/24 08/04/24 17:55 21:47 07:40 WBC 8.6 7.2 RBC 4.08 3.69 L Hgb 13.2 12.1 Hct 38.8 35.2 L MCV 95.1 95.3 MCH 32.3 32.7 MCHC 34.0 34.3 RDW 13.5 13.5 Plt Count 198 173 Neut % (Auto) 68.5 66.3 Lymph % (Auto) 19.2 L 21.8 L Pope % (Auto) 8.5 7.8 Eos % (Auto) 2.8 3.1 Baso % (Auto) 1.0 1.0 Neut # (Auto) 5900 4700 Lymph # (Auto) 1700 1600 Pope # (Auto) 700 600 Eos # (Auto) 200 200 Baso # (Auto) 100 100 PT 11.3 INR 1.0 Sodium 138 Potassium 3.3 L Chloride 103 Carbon Dioxide 27 BUN 22 H Creatinine 0.66 Estimated GFR > 60 BUN/Creatinine Ratio 33.3 H Glucose 89 Calcium 8.9 Magnesium 2.1 Total Bilirubin 1.0 AST 26 ALT 16 Alkaline Phosphatase 57 Total Protein 6.8 Albumin 4.1 Globulin 2.7 Albumin/Globulin Ratio 1.5 [facility] Medical History Hypertension, uncontrolled Closed fracture of right hip Social History household members: spouse Smoking Status: Never smoker Assessment & Plan Assessment & Plan narrative: (1) Closed fracture of right hip: Problem details: Patient sustained a R sided Proximal Femoral neck fracture secondary to a Ground level fall in her kitchen a few weeks ago. R hip XR per her then ED visit : no fracture of R hip noted Continued with R hip pain. myra on RLE weight bearing: had MRI R hip done today indicating R Femoral Neck Fracture/ Pt referred to ED Qualifiers: Encounter type: initial encounter Qualified Code(s): S72.001A - Fracture of unspecified part of neck of right femur, initial encounter for closed fracture Status: Acute Plan: Judicious Pain control, Percocet prn, Dilaudid 0.5 mg IV q [address] Caro with Orthopedics consulted per ED, and Dr Caro has advised:NPO after midnight Plan for R hip Surgery in the morning. IVF maintenance over night , as well as likely dehydrated given mild elevated BUN Continuos Pulse ox ( given narcotic medications) Keep O2 sats > 92% Hold Pharmacologic DVT prophylaxis in anticipation of R hip surgery in the morning. Continue SCDs (2) Hypertension, uncontrolled: Problem details: Pt has h/o HTN, and takes Anti HTN meds at home , including Losartan. She had elevated SBP in ERD, likely sec to R hip pain/ discomfort, was given Amlodipine 2.5 mg po once , and her Home dose of Losartan, with improvement on her SBPs. Status: Acute Plan Recd Amlodipine 2.5 mg po and Losartan 50 mg po in ED, with SBP improvement. Continue home blood pressure meds While NPO: give Hydralazine 10 mg IV q 6-8 hrs prn for SBP > 155 R sided Hip fracture after Ground level fall. Orthopedic consult, with Dr Caro obtained by ED Provider, and Dr Caro agrees with admitting patient to Hospitalist service Anticipate operative repair today. Time-Based Coding :: [TOTAL MINUTES] spent with patient and on the chart (including review of chart, obtaining history, exam, reviewing outside data, placing orders, documenting exam and treatment plan, and counseling patient) on [DATE].
--- NOTE | 2024-08-04 08:09 | OT.IPNOTE ---
DC OT eval and await orders after pt's surgery.
[2024-08-04 08:10] LABS: BUN Creatinine Ratio 32.7 (6-22); Blood Urea Nitrogen 16 mg/dL (7-17); Calcium 8.2 mg/dL (8.4-10.2); Carbon Dioxide 26 mmol/L (22-32); Chloride 103 mmol/L (98-107); Estimated Glomerular Filt Rate > 60 mL/min (>60); Glucose 120 mg/dL (80-110); HEMOLYSIS < 15 (0-50); Potassium 3.8 mmol/L (3.4-5.1); Sodium 135 mmol/L (137-145)
[2024-08-04] MEDS: ONDANSETRON 4 MG/2 ML INJ IV ×2 (08:13→17:59)
[2024-08-04] MEDS: HYDROMORPHONE 0.5 MG INJ IV (08:13)
[2024-08-04] MEDS: DEXTROSE 5%-0.45% NS 1,000 ML 100 ML IV (08:14)
[2024-08-04] MEDS: PROMETHAZINE 25 MG TABLET 12.5 MG PO (09:45)
--- NOTE | 2024-08-04 13:46 | P.HP_ITS ---
History of Present Illness History of Present Illness Date Patient Seen: 08/04/24 Time Patient Seen: 08:00 Date of Onset of Symptoms: 07/28/24 Chief complaint: sent over from MRI something wrong R hip pain Narrative: This is a pleasant 89-year-old female who fell more than a week ago and noted the acute onset of right hip pain. She went to the emergency room where x-rays did not show a definitive fracture. She went home and noticed progressive worsening right hip pain. She saw her primary care practitioner who ordered an MRI scan. Her MRI scan was consistent with a right femoral neck fracture. She was sent to the emergency room for evaluation. She notes constant right hip pain is getting progressively worse and she has been having significant difficulty over the last couple of weeks. She did not have problems with the right hip prior to the acute injury. [facility] Medical History Hypertension, uncontrolled Closed fracture of right hip Social History household members: spouse Smoking Status: Never smoker Meds Home Medications and Allergies Home Medications Medication Instructions Recorded Confirmed Type Allergy (diphenhydramine) 50 mg PO PRN PRN Dizziness Or 08/03/24 08/03/24 History Vertigo acetaminophen 500 mg tablet 500 mg PO QID PRN Pain (Scale 08/03/24 08/03/24 History Score 1-3) amlodipine 2.5 mg tablet 5 mg DAILY 08/03/24 08/03/24 History cholecalciferol (vitamin D3) 2,000 units PO DAILY 08/03/24 08/03/24 History estradiol 0.01% (0.1 mg/gram) 1 g vaginal 3XW 08/03/24 08/03/24 History vaginal cream lidocaine 5 % topical patch 1 patch topical DAILY PRN Back Pain 08/03/24 08/03/24 History losartan 50 mg tablet 50 mg PO BID 08/03/24 08/03/24 History potassium chloride 10 mEq 10 meq PO DAILY 08/03/24 08/03/24 History capsule,extended release pravastatin 20 mg tablet 20 mg DAILY 08/03/24 08/03/24 History promethazine 25 mg rectal 25 mg ME Q6H PRN nausea/vomiting 08/03/24 08/03/24 History suppository (Promethegan) propranolol 120 mg capsule,24 120 mg PO ONCE PM 08/03/24 08/03/24 History hr,extended release propranolol 40 mg tablet 40 mg PRN PRN arrythmia 08/03/24 08/03/24 History propranolol 80 mg capsule,24 80 mg PO QAM 08/03/24 08/03/24 History hr,extended release triazolam 0.25 mg tablet 0.125 mg PO ONCE PM PRN Dizziness 08/03/24 08/03/24 History Or Vertigo Allergies Allergy/AdvReac Type Severity Reaction Status Date / Time bee venom protein (honey bee) Allergy Anaphylaxis Verified 08/03/24 15:53 Penicillins Allergy Rash Verified 08/03/24 15:53 Review of Systems Review of Systems Narrative: She denies fevers chills or other abnormalities recently she notes she is otherwise pretty healthy she lives with her supportive who is at bedside. Exam Vital Signs (past 8 hours): - 08/04/24 08:00 08/04/24 12:00 Temperature 98.1 F 97.8 F Pulse Rate 83 79 Respiratory Rate 16 14 Blood Pressure 119/65 142/74 H Pulse Oximetry 97 99 Oxygen Flow Rate 0 0 Oxygen Delivery Method Nasal Cannula Oxygen Flow Rate 0 Narrative Exam Narrative: HEENT is benign, lungs are clear, cor regular rate and rhythm, abdomen soft and benign, right lower extremity significant pain with attempted range motion in the right hip, she is able to fire toe flexors and extensors distally, she does have some deformity of her right foot with significant swelling in the dorsum of the foot and some abnormalities of the lesser toes, skin is intact distally, leg is minimally foreshortened, calves are soft Objective Labs 08/04/24 07:40 08/04/24 07:40 Labs: Laboratory Results - last 24 hr 08/03/24 08/03/24 08/04/24 17:55 21:47 07:40 WBC 8.6 7.2 RBC 4.08 3.69 L Hgb 13.2 12.1 Hct 38.8 35.2 L MCV 95.1 95.3 MCH 32.3 32.7 MCHC 34.0 34.3 RDW 13.5 13.5 Plt Count 198 173 Neut % (Auto) 68.5 66.3 Lymph % (Auto) 19.2 L 21.8 L [place] % (Auto) 8.5 7.8 Eos % (Auto) 2.8 3.1 Baso % (Auto) 1.0 1.0 Neut # (Auto) 5900 4700 Lymph # (Auto) 1700 1600 [place] # (Auto) 700 600 Eos # (Auto) 200 200 Baso # (Auto) 100 100 PT 11.3 INR 1.0 Sodium 138 135 L Potassium 3.3 L 3.8 Chloride 103 103 Carbon Dioxide 27 26 BUN 22 H 16 Creatinine 0.66 0.49 L Estimated GFR > 60 > 60 BUN/Creatinine Ratio 33.3 H 32.7 H Glucose 89 120 H Calcium 8.9 8.2 L Magnesium 2.1 Total Bilirubin 1.0 AST 26 ALT 16 Alkaline Phosphatase 57 Total Protein 6.8 Albumin 4.1 Globulin 2.7 Albumin/Globulin Ratio 1.5 Assessment & Plan Assessment and plan (1) Closed fracture of right hip: Problem details: Patient sustained a R sided Proximal Femoral neck fracture secondary to a Ground level fall in her kitchen a few weeks ago. R hip XR per her then ED visit : no fracture of R hip noted Continued with R hip pain. myra on RLE weight bearing: had MRI R hip done today indicating R Femoral Neck Fracture/ Pt referred to ED Qualifiers: Encounter type: initial encounter Qualified Code(s): S72.001A - Fracture of unspecified part of neck of right femur, initial encounter for closed fracture Status: Acute (2) Hypertension, uncontrolled: Problem details: Pt has h/o HTN, and takes Anti HTN meds at home , including Losartan. She had elevated SBP in ERD, likely sec to R hip pain/ discomfort, was given Amlodipine 2.5 mg po once , and her Home dose of Losartan, with improvement on her SBPs. Status: Acute Plan I have recommended a right hip cemented unipolar for a right femoral neck fracture. The procedure options risks benefits and complications were discussed in detail. Options including but not limited to persistent conservative care which does not appear to be a viable oxygen as she was getting progressively worse and her fracture does appear to be displacing were discussed. Risks including but limited to bleeding, infection, instability, osteoarthritic change in the hip after unipolar and potential anesthetic complications were discussed. She consents to right partial replacement. Time-Based Coding :: [TOTAL MINUTES] spent with patient and on the chart (including review of chart, obtaining history, exam, reviewing outside data, placing orders, documenting exam and treatment plan, and counseling patient) on [DATE].
--- NOTE | 2024-08-04 13:52 | PM.OP.1 ---
Operative Date/Time/Diagnoses Date of procedure: 08/04/24 Time of procedure: 14:30 Pre-op diagnosis: Right femoral neck fracture, right hip abductor tear Post-op diagnosis: same Procedure & Clinicians Procedure: Right hip unipolar cemented, right hip abductor repair Same procedure as scheduled: Yes Indications: The patient fell and had the acute onset of right hip pain. Her initial x-rays did not show a right hip fracture but she notes progressive worsening right hip pain and an MRI scan confirmed a right hip fracture. She was brought to the operating room for a cemented right hip unipolar. The risks, benefits and alternatives to surgery were discussed with the patient prior to proceeding. Risks discussed included, but were not limited to, failure to relieve pain, leg length discrepancy, dislocation, stiffness, infection, nerve damage, deep venous thrombosis, pulmonary embolism, stroke, coma, heart attack, permanent paralysis and , as well as the potential need for eventual revision of the prosthetic. Surgeon: Kimberlyn Caro Landscape Laborer: Nidia Gonzáles Anesthesia Type: General Operative Notes Findings: Right femoral neck fracture with displacement, minimal osteoarthritic change, soft bone, adequate stability, tear in the right hip abductors avulsed from the greater trochanter adequate tissue for repair Closure Type: primary Specimen(s): none sent Prosthetic devices, grafts, tissues, transplants, or devices: Caro and nephew cemented Synergy size 12, size 47 femoral head, +0, suture anchor corkscrew Arthrex 5.5 x 16.3 mm, 9 mm distal cement restrictor Estimated Blood Loss (mL): 250 Blood products transfused: none Procedure in detail: The patient was seen in the pre-operative area, where the patient identified the right hip as the operative site and this was marked with my initials. The patient received pre-operative antibiotics and was taken to the operating room and placed on the operative table in the supine position after satisfactory anesthesia. A wind turbine controls engineer out was performed. Patient was placed in the lateral decubitus position and all bony prominences were carefully padded and the arms were appropriately position. A PA was used during the procedure and was essential for intraoperative retraction and safe implantation of the components. The left lower extremity was prepared from the ankle to the iliac crest with ChloroPrep in the usual fashion and draped through sterile drapes. The hip was approached through posterolateral approach. Dissection was carried out down through skin and subcutaneous tissues. The fascia was opened. Gelpi retractors were placed. A Charnley retractor was placed. There was a major tear in the hip abductors looked like there was tissue which might be amenable to repair. A small amount of inflamed bursa was resected. The piriformis was identified and protected. The other short external rotators and capsule were carefully stripped from the posterior aspect of the femur. They were tagged and carefully retracted. The femoral neck was brought up and an osteotomy was made of the residual femoral neck approximately 1 fingerbreadth above the lesser trochanter. The head was removed without difficulty. It was carefully sized. The acetabulum was meticulously irrigated with normal saline. There were [mild] changes in the acetabulum. The acetabulum was carefully protected with an E tape. The canal was opened with a box cutting osteotome, followed by a T-handled reamer and a lateralizing reamer. The tapered reamers were then used, followed by sequential broaching. A trial head and neck were then placed and the hip relocated and checked for leg length and stability. The patient was stable in the position of sleep, of squatting, and could be put through a range of motion with 45 degrees internal rotation without dislocation. At 90 degrees flexion, internal rotation to 80? was possible before dislocation. This was felt to be satisfactory and the appropriate components were opened, and the trials were removed. The femoral canal was sized and a distal cement restrictor was placed. The bone was meticulously cleaned with pulse lavage. The canal was packed with vaginal packing with epinephrine. Antibiotics cement was mixed and carefully pressurized into the femoral canal. The femoral component was placed without difficulty. A repeat trial reduction showed good range of motion and stability. We did a brief Betadine soak after the cement had hardened. Patient had good range of motion and stability. The final head and neck were placed after carefully irrigating the wound. A suture anchor was placed in the greater trochanter after carefully freshening the greater trochanter and the hip abductors were repaired without difficulty. The capsulomuscular flap was then repaired to the greater trochanter though an awl hole using the tag sutures. The short external rotators were repaired with nonabsorbable stitches. The fascia efrain was closed with Vicryl. The subcutaneous layer was closed with interrupted 3-0 Vicryl, and the skin with a running 3-0 V-Lock suture and surgical glue. An Aquacel Ag dressing was applied and the patient was taken to recovery having tolerated the procedure well. Complications: none Post-operative Condition: stable Disposition: Acute Care Plan for aftercare: The patient will be maintained on a standard total hip replacement protocol with weight bearing as tolerated and posterior hip precautions. The patient will receive Aspirin and sequential compression devices for DVT prophylaxis. Aspirin and Tylenol for pain preferentially. She is very sensitive to narcotics. She might be a candidate for tramadol. The patient will be discharged home when safe for the home environment.
[2024-08-04] MEDS: LACTATED RINGERS 1,000 ML 42 ML IV ×2 (13:57→16:31)
[2024-08-04] MEDS: CEFAZOLIN 2 GM/100 ML PREMIX 100 ML IV (15:00)
[2024-08-04] MEDS: BUPIVACAINE 0.25% W/ EPI 30 ML VIAL 60 ML INJ (15:19)
[2024-08-04] MEDS: BUPIVACAINE LIPOSOME 266 MG/20 ML VIAL INJ (15:20)
[2024-08-04] MEDS: EPINEPHrine 1 MG/ML TOP (15:28)
--- NOTE | 2024-08-04 15:32 | SUR.OPER ---
Lateral on padded OR bed. Gel axillary roll. Arms secured on padded armboard with pillow supporting top arm. Padded hip positioner braces x4 - anterior and posterior chest and pelvis. Additional gel pad used anterior pelvis. Gel pad under bottom leg from knee to foot and secured with tape over sheet.
[2024-08-04] MEDS: HYDROMORPHONE 1 MG INJ 0.5 MG IV (17:47)
[2024-08-04] MEDS: PHENYLEPHRINE 10,000 MCG/ML VIAL 100 MCG IV (17:50)
[2024-08-04] MEDS: hydrOXYzine 50 MG/ML INJ 25 MG IM (17:59)
[2024-08-04] MEDS: ALBUMIN HUMAN 12.5 GM/50 ML VIAL IV (18:05)
[2024-08-04] MEDS: ACETAMINOPHEN 325 MG TABLET 650 MG PO (18:13)
[2024-08-04] MEDS: OXYCODONE IR 5 MG TABLET PO ×2 (18:13→19:29)
--- NOTE | 2024-08-04 18:44 | SUR.PHASEI ---
BRODY Quiñonez initiating Phenylephrine gtt for hypotension at 0.5 mcg/kg/min. BP Up to 101/64 and MAP 75 after initiating gtt. Oxygen saturation 92 % on 4 liters nasal cannula. Urine output to guzman catheter less than 100 mls since arrival to PACU; intake of 2000 ml of LR. Per anesthesia, give 500 mls bolus of LR due to inadequate urine output.
[2024-08-04] MEDS: LACTATED RINGERS 1,000 ML 999 ML IV (18:58)
[2024-08-04] MEDS: KETOROLAC 30 MG/ML VIAL 15 MG IV (19:00)
--- NOTE | 2024-08-04 19:02 | EKG_ITS ---
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
[2024-08-04 19:31] LABS: Creatine Kinase 81 U/L (30-135)
[2024-08-04 19:41] LABS: Troponin I 0.022 ng/mL (0.01-0.034)
--- NOTE | 2024-08-04 19:47 | DI.RAD.S_ITS ---
PROCEDURE: XR CHEST 1V INDICATIONS: tachycardia TECHNIQUE: One view of the chest was acquired. COMPARISON: [facility], CR, XR CHEST 1V, 08/03/2024, 17:15. FINDINGS: Surgical changes and devices: None. Lungs and pleura: Patient is mildly rotated towards the left. Stable chronic interstitial markings. No acute consolidation. No pleural effusions or pneumothorax. Mediastinum: Aortic tortuosity. Cardiac silhouette is normal in size. Bones and chest wall: No suspicious bony lesions. Overlying soft tissues appear unremarkable. IMPRESSION: No acute cardiopulmonary abnormality is seen. Approved by: George Downing M.D. on 08/04/2024 at 20:45
[2024-08-04 20:13] LABS: Base Excess ABG -0.2 mmol/L (-2-3); Blood Gas Collection Site Arterial Line; Delivery System oxymask; HCO3 ABG 25 mmol/L (23-27); Oxygen Saturation ABG 91 % (95-100); PCO2 ABG 41.1 mmHg (35-45); PO2 ABG 63 mmHg (80-100); TCO2 ABG 24 mmol/L (23-27); pH ABG 7.39 (7.35-7.45)
[2024-08-04 20:13] LABS: Add Manual Diff / Slide Review NO; Basophils Absolute Auto 0 /uL (0-100); Basophils Percent Auto 0.2 % (0-2); Eosinophils Absolute Auto 0 /uL (0-450); Eosinophils Percent Auto 0.1 % (2-4); Lymphocytes Absolute Auto 700 /uL (1100-4500); Mean Corpuscular HGB Conc 33.3 % (30-36); Mean Corpuscular Hemoglobin 31.9 PG (26-34); Mean Corpuscular Volume 95.8 fL (80-100); Monocytes Absolute Auto 300 /uL (0-900); Monocytes Percent Auto 1.7 % (3-14); Neutrophils Absolute Auto 15500 /uL (1500-7000); Platelet Count 187 X10^3/uL (150-400); Red Blood Cell Count 3.76 X10^6/uL (4.0-5.2); Red Cell Distribution Width 13.5 % (11.6-14.8); White Blood Cell Count 16.5 X10^3/uL (4.5-11.0)
[2024-08-04 20:24] LABS: Alanine Aminotransferase 17 IU/L (<35); Albumin 3.7 g/dL (3.5-5.0); Albumin Globulin Ratio 1.6 (1.0-2.8); Alkaline Phosphatase 44 U/L (38-126); Aspartate Aminotransferase 33 IU/L (14-36); BUN Creatinine Ratio 21.3 (6-22); Bilirubin Total 1.2 mg/dL (0.2-1.3); Blood Urea Nitrogen 16 mg/dL (7-17); Calcium 8.3 mg/dL (8.4-10.2); Carbon Dioxide 25 mmol/L (22-32); Chloride 103 mmol/L (98-107); Estimated Glomerular Filt Rate > 60 mL/min (>60); Globulin 2.3 g/dL (1.7-4.1); Glucose 145 mg/dL (80-110); HEMOLYSIS < 15 (0-50); Sodium 136 mmol/L (137-145)
[2024-08-04 20:25] LABS: Lactate (Lactic Acid) 1.4 mmol/L (0.7-2.1)
[2024-08-04 20:33] LABS: NT-proBNP (BNP-Adult 18+) 693 pg/mL (<450)
--- NOTE | 2024-08-04 21:11 | DI.CT.S_ITS ---
PROCEDURE: CT ANGIO CHEST PE PROTOCOL INDICATIONS: hypoxia TECHNIQUE: After the administration of intravenous contrast, 2 mm thick sections acquired from the pulmonary apices to the posterior costophrenic angles. 3-dimensional maximum intensity projection (MIP) coronal and sagittal reformats were then acquired through the thorax. For radiation dose reduction, the following was used: automated exposure control, adjustment of mA and/or kV according to patient size. COMPARISON: None. FINDINGS: Image quality: Diagnostic. Pulmonary arteries: Pulmonary arteries are normal in size, and demonstrate no intraluminal filling defects to suggest central pulmonary embolism. Lower Neck: No enlarged lymph nodes. 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 Few hypoattenuating right thyroid nodules are present. Axillae: No enlarged lymph nodes. Chest Wall: Unremarkable. Bones: A few healing left lateral rib fractures are present. No acute displaced fracture is seen. Lungs and Pleura: Small bilateral pleural effusions with bibasilar atelectasis. Mild smooth interlobular septal thickening suspicious for mild edema. No focal consolidations. Heart: Heart size is mildly enlarged. No pericardial effusion. Mild coronary artery calcifications. Thoracic Vessels: Ascending thoracic aorta measures up to 4.2 cm in maximum dimension. Thoracic aorta is tortuous with mild atherosclerotic calcifications. Mediastinum and Odilia: No enlarged lymph nodes. Esophagus: No wall thickening. No hiatal hernia. Upper Abdomen: Visualized upper abdomen solid organs and bowel loops appear normal. IMPRESSION: 1. No acute pulmonary embolus. 2. Small bilateral pleural effusions. Mild septal line thickening is suspicious for mild interstitial pulmonary edema. 3. Mild cardiomegaly. 4. Mild ectasia of the ascending thoracic aorta, measuring up to 4.2 cm in diameter. 5. Hypoattenuating right thyroid nodules. Absent left thyroid. Recommend nonemergent outpatient thyroid ultrasound for further evaluation. Approved by: George Downing M.D. on 08/04/2024 at 22:08
--- NOTE | 2024-08-04 21:28 | P.EN_ITS ---
Event Note Date Patient Seen: 08/04/24 Event Note (Rapid Response, Code, or fall): The Nurse Business Administration Instructor Brenda Quiñonez called me at 7:32 pm regarding this patient: Rebecca Carpenter is 89 y/o F admitted by me yesterday for R hip Fracture after a GLF a couple of weeks ago, pl;ease see details of my HP from 08/03/24. PMHx of Aortic aneurysm, HTN, accelerated junctional rhythm, noted per Nurse Business Administration Instructor post op ( pt had ORIF today around 2:30 pm ) was in PACU , Pt had recd 4 mg of Hydrallazine IV plus 4 mg Lopressor for Tachycardia and SBP of 150s After 15 mins, as no change in getting VR to decrease, same dose of Hydralazine and Lopressor repeated.This was around 1625 today After thye second dose pt was noted to be moderately Hypotensive, initially in 90s systolic and then decreased to 70 Systolic/ 77/50 , with tachycardia on going ( VR 115-130) Pt additionally had recd total of 2400 mls IVF including 500 mls NS ( PACU) , 50 mls Albumin infusion, 2 x 500 mls boluses, Also was given : Phenylephrine 0,5 mg/ kg/ hour infusion and Neostigmine 1 mg , which temporarily got HR under control, however pt has revereted back to Tachycardia VR in 120s to 130s, and SBP in mid 90s Physical exam : via tele camera VS : O2 sats 96% on 4L nc , HR 141, SBP 97 Afebrile RR 18 Pt is awake and alert and does not appear in any acute distress. Is denying CP, or Abd pain Answering questions appropriately HEENT: AT/ NC PERRL , EOMI Oral mmm Neck is supple No JVD Lungs : CTA bilat BS present and equal , Fine crackles at bases, no rhonchi Heart: Tachycardia. No M/G/R Abd : soft , NT, ND , no Organomegaly/ BS present and WNL. No Flank Tenderness Ext : Mild tenderness R hip s/p Hip surgery today , no calf tenderness bilat , pp 2 + bilat symmetric Neuro non focal Labs/ imaging reviewed Current meds reviewed A/P : Acute Respiratory Hypoxia / Depression with Tachycardia, requiring 6-8 L O2 supp via Oxymask No Chest Pain , Troponin is 0.022 , concern for Acute PE? vs Fluid Overload ( flash pulm edema) though BNP could be elevated sec to R heart Strain from ? PE / also concern for Aspiration Pneumonia, given elevated WBCs ( however Leukocytosis could be reactionary / myra as pt is Afebrile and has no cough), EKG, reviewed by me , : Accelerated Junctional Rhythm VR 126 , moderate LVH with ST- T wave abn / reploarization vs less likely Lateral Ischemia Decreased U/O over last 2.5 hours while at PACU, pt had 100 mls of U/O ( has Foleys) , continue close monitoring of U/O and Renal Function/ likely initially pt had been volume contracted, shall see if U/O shall improve after the IVF already given at PACU. Urine electrolytes, and osm ordered BUN and Creat stable , shall closely monitor , Strict Intake and output , daily weights Check Renal US CXR 1 view : No acute changes Lungs and pleura: Patient is mildly rotated towards the left. Stable chronic interstitial markings. No acute consolidation. No pleural effusions or pneumothorax. Mediastinum: Aortic tortuosity. Cardiac silhouette is normal in size. Bones and chest wall: No suspicious bony lesions. Overlying soft tissues appear unremarkable. IMPRESSION: No acute cardiopulmonary abnormality is seen. ABG : ph : 7.39/ PCO2 41.1/ PO2 63 / O2 sats 91 on 40 % FiO2 BNP : up at 693 Leukocytosis WBC up( from normal yesterday) to 16.5 K, with Neutrophilic predominance Lactate at 1.4 , HH 12/36, plat 187K , BUN / Creat : 16/0.75 Procal pending LFTs WNL Bl cx done Have consulted after hours Pharmacist / Megan Roque re: Empiric Abx choice for possible Aspiration Pneumonia, given pt has PCN allergy Shall start Ceftriaxone 2 gm IV daily, first dose now, Flagyl 500 mg IV q 8 hrs, first dose now, and Vancomycin IV , with Pharmacy to dose following doses. Pt has been transferred to ICU for close monitoring of hemodynamics . CTA cHest : no Pulm Embolism, no Pn thorax, . Small bilateral pleural effusions. Mild septal line thickening is suspicious for mild interstitial pulmonary edema. 3. Mild cardiomegaly. Lasix 20 mg IV ordered , cautiously given as SBP at 97/ MAP 57 Start Norepinephrine drip to titrate to MAP > 65 Repeat EKG : SVT at HR 133, no acute ST - T wave changes noted Troponin #2 is up at 0.129, likely sec to Demand Ischemia given SVT, continue trend troponins. Echo ordered for am . Have consulted Tele Beauty Counselor / CCM stone layout marker / Dr Tariq Shelby, for co management of this patient, and have discussed all pertinent Clinical data, incl thgis evening's events, labs, imaging , meds given , and EKG findings , Appreciate Tele Beauty Counselor recommendations I have been in close communication with patient's nurse, and I have discussed with pt via Tele encounter today, the various diagnostic tests done, as well as the plan of treatment, I answered pt's questions to her satisfaction.
[2024-08-04 21:51] LABS: Procalcitonin 0.058 ng/mL (<0.5)
[2024-08-04] MEDS: LOSARTAN 50 MG TABLET PO (22:50)
[2024-08-04] MEDS: PROPRANOLOL 10 MG TABLET 40 MG PO (22:52)
[2024-08-04] MEDS: metroNIDAZOLE 500 MG/100 ML PIGGYBACK 100 MG IV (22:54)
[2024-08-04] MEDS: cefTRIAXone 2,000 MG in SODIUM CHLORIDE 0.9% 100 ML 200 MG IV (22:55)
--- NOTE | 2024-08-04 23:03 | PC.NURSE ---
Hospitalist contracting engineer updated about troponin result, new order received, re draw troponin in 4 hours, d/c Vancomycin.
--- NOTE | 2024-08-04 23:16 | EKG_ITS ---
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
[2024-08-04 23:39] LABS: Troponin I 0.129 ng/mL (0.01-0.034)
[2024-08-04] MEDS: FUROSEMIDE 40 MG/4 ML VIAL 20 MG IV (23:55)
[2024-08-05] VITALS (53 sets, daily range): BP systolic 87–160; BP diastolic 55–73; PULSE 71–130; RESP 16; TEMP 36.5; O2SAT 85–98
--- NOTE | 2024-08-05 00:39 | P.TELICUCN_ITS ---
History of Present Illness Consult details IF CAMERA ACTIVATED, patient seen via real-time interactive audiovisual communication: Camera activated Date Patient Seen: 08/05/24 Chief complaint: sent over from MRI something wrong R hip pain Consent obtained for tele-insulation blanket maker care: Yes Patient Location: ICU Provider location (State): [place] Other participants/roles: none Narrative: Asked by [facility] tele-hospitalist to consult on this patient for combination of HR 140s, 4 L/min NC O2 requirement and oliguria. Pt is POD # 1 from R femoral neck fracture ORIF. For full details, please see Dr. Arias's note. Summary: starting ~ 1900 pt was tachycardic in 120s and hypertensive; she was treated with metoprolol and hydralazine x 2; she then became hypotensive requiring crystalloid and colloid resuscitation and phenylephrine gtt. Phenylephrine gtt has been weaned off. Pul CTA (-) for PE and pneumonia and she now has an elevated troponin -I and BNP. Lasix has been ordered. Labs show normokalemia/normomagnesemia, (-) procalcitonin and newly elevated WBC. Lactate is (-). Despite (-) lactate and procalcitonin, she has been cultured and started on vancomycin/ceftriaxone/metronidazole. HR is in 140s. She has never been symptomatic. [facility] Medical History Hypertension, uncontrolled Closed fracture of right hip Social History household members: spouse Smoking Status: Never smoker alcohol intake: current Current Medications Current Medications Medications: Home Medications Allergy (diphenhydramine) 50 mg PO PRN PRN Dizziness Or Vertigo 08/03/24 [History Confirmed 08/03/24] acetaminophen 500 mg tablet 500 mg PO QID PRN Pain (Scale Score 1-3) 08/03/24 [History Confirmed 08/03/24] amlodipine 2.5 mg tablet 5 mg DAILY 08/03/24 [History Confirmed 08/03/24] cholecalciferol (vitamin D3) 2,000 units PO DAILY 08/03/24 [History Confirmed 08/03/24] estradiol 0.01% (0.1 mg/gram) vaginal cream 1 g vaginal 3XW 08/03/24 [History Confirmed 08/03/24] lidocaine 5 % topical patch 1 patch topical DAILY PRN Back Pain 08/03/24 [History Confirmed 08/03/24] losartan 50 mg tablet 50 mg PO BID 08/03/24 [History Confirmed 08/03/24] potassium chloride 10 mEq capsule,extended release 10 meq PO DAILY 08/03/24 [History Confirmed 08/03/24] pravastatin 20 mg tablet 20 mg DAILY 08/03/24 [History Confirmed 08/03/24] promethazine 25 mg rectal suppository (Promethegan) 25 mg [place] Q6H PRN nausea/vomiting 08/03/24 [History Confirmed 08/03/24] propranolol 120 mg capsule,24 hr,extended release 120 mg PO ONCE PM 08/03/24 [History Confirmed 08/03/24] propranolol 40 mg tablet 40 mg PRN PRN arrythmia 08/03/24 [History Confirmed 08/03/24] propranolol 80 mg capsule,24 hr,extended release 80 mg PO QAM 08/03/24 [History Confirmed 08/03/24] triazolam 0.25 mg tablet 0.125 mg PO ONCE PM PRN Dizziness Or Vertigo 08/03/24 [History Confirmed 08/03/24] Visit Medications (administered) Generic Name Dose Route Start Last Admin Trade Name Freq PRN Reason Stop Dose Admin Hydroxyzine HCl 25 mg 08/04/24 17:39 08/04/24 17:59 Hydroxyzine 50 Mg/Ml Inj IM 25 mg NOW PRN Administration Pain, Mild (1-3) Lactated Ringer's 1,000 mls @ 42 mls/hr 08/04/24 13:57 08/04/24 19:13 Lactated Ringers IV 08/05/24 13:45 Infused NOW ONE Infusion Ceftriaxone Sodium 2,000 mg/ 100 mls @ 200 mls/hr 08/04/24 21:30 08/04/24 23:47 Sodium Chloride IV Infused Q24H ASHISH Infusion Metronidazole 500 mg in 100 mls @ 100 mls/hr 08/04/24 22:00 08/04/24 22:54 Flagyl IV 100 mls/hr Q8H ASHISH Administration Losartan Potassium 50 mg 08/04/24 21:00 08/04/24 22:50 Losartan 50 Mg Tablet PO 50 mg BID ASHISH Administration Ondansetron HCl 4 mg 08/04/24 17:39 08/04/24 17:59 Ondansetron 4 Mg/2 Ml Inj IV 4 mg NOW PRN Administration Nausea And Vomiting Propranolol HCl 40 mg 08/04/24 21:00 08/04/24 22:52 Propranolol 10 Mg Tablet PO 40 mg BID ASHISH Administration Exam Vital Signs (past 8 hours): - 08/04/24 17:11 08/04/24 17:13 08/04/24 17:16 Temperature 97.4 F L Pulse Rate 118 H 116 H 116 H Respiratory Rate 17 15 94 H Blood Pressure 81/48 L 72/44 L 83/47 L Pulse Oximetry 84 L 94 795 H Oxygen Delivery Method Room Air Nasal Cannula Nasal Cannula Oxygen Flow Rate 7 7 08/04/24 17:21 08/04/24 17:26 08/04/24 18:01 Temperature Pulse Rate 116 H 116 H 124 H Respiratory Rate 15 21 17 Blood Pressure 77/51 L 89/58 L 83/54 L Pulse Oximetry 95 95 93 Oxygen Delivery Method Simple Mask Simple Mask Nasal Cannula Oxygen Flow Rate 7 7 4 08/04/24 18:51 08/04/24 19:06 08/04/24 19:12 Temperature Pulse Rate 127 H 66 115 H Respiratory Rate 12 11 L 112 H Blood Pressure 106/67 114/75 121/67 Pulse Oximetry 94 97 94 Oxygen Delivery Method Oximask Oximask Oximask Oxygen Flow Rate 5 4 4 08/04/24 19:31 08/04/24 19:37 08/04/24 19:51 Temperature 98.2 F Pulse Rate 121 H 120 H 135 H Respiratory Rate 13 13 18 Blood Pressure 99/67 101/67 101/71 Pulse Oximetry 97 95 95 Oxygen Delivery Method Oximask Oximask Oximask Oxygen Flow Rate 6 4 4 08/04/24 20:29 08/04/24 20:32 08/04/24 22:04 Temperature 97.6 F Pulse Rate 138 H 139 H Respiratory Rate 21 19 Blood Pressure 109/63 118/57 L 105/57 L Pulse Oximetry 97 98 Oxygen Delivery Method Oximask Oxygen Flow Rate 6 3 08/04/24 22:09 08/04/24 22:09 08/04/24 22:30 Temperature Pulse Rate 138 H 138 H Respiratory Rate 16 13 Blood Pressure 97/59 L Pulse Oximetry 97 96 Oxygen Delivery Method Oxygen Flow Rate 08/04/24 22:50 08/04/24 23:00 08/04/24 23:00 Temperature Pulse Rate 141 H 135 H Respiratory Rate 15 Blood Pressure 97/57 L 91/56 L Pulse Oximetry 94 Oxygen Delivery Method Oxygen Flow Rate 08/04/24 23:30 08/05/24 00:00 08/05/24 00:00 Temperature Pulse Rate 130 H 128 H Respiratory Rate 14 Blood Pressure 87/55 L Pulse Oximetry 92 94 Oxygen Delivery Method Oxygen Flow Rate Oxygen Delivery Method Oximask Oxygen Flow Rate 3 Const General: comfortable and other (sleeping) Resp Effort & Inspection: normal respiratory effort Cardio Rate: tachycardic (in 140s) Rhythm: other (sinus) Objective Labs 08/04/24 20:00 08/04/24 20:00 Labs: Laboratory Results - last 24 hr 08/04/24 08/04/24 08/04/24 07:40 18:40 20:00 WBC 7.2 16.5 H D RBC 3.69 L 3.76 L Hgb 12.1 12.0 Hct 35.2 L 36.0 MCV 95.3 95.8 MCH 32.7 31.9 MCHC 34.3 33.3 RDW 13.5 13.5 Plt Count 173 187 Neut % (Auto) 66.3 94.0 H D Lymph % (Auto) 21.8 L 4.0 L Callahan % (Auto) 7.8 1.7 L Eos % (Auto) 3.1 0.1 L Baso % (Auto) 1.0 0.2 Neut # (Auto) 4700 56454 H Lymph # (Auto) 1600 700 L Callahan # (Auto) 600 300 Eos # (Auto) 200 0 Baso # (Auto) 100 0 ABG Sample Site ABG pH ABG pCO2 ABG pO2 ABG HCO3 ABG Total CO2 ABG O2 Saturation ABG Base Excess Rajeev Test O2 Delivery Device FiO2 % Sodium 135 L 136 L Potassium 3.8 4.0 Chloride 103 103 Carbon Dioxide 26 25 BUN 16 16 Creatinine 0.49 L 0.75 Estimated GFR > 60 > 60 BUN/Creatinine Ratio 32.7 H 21.3 Glucose 120 H 145 H Lactate 1.4 Calcium 8.2 L 8.3 L Total Bilirubin 1.2 AST 33 ALT 17 Alkaline Phosphatase 44 Total Creatine Kinase 81 Troponin I 0.022 NT-Pro-B Natriuret Pep 693 H Total Protein 6.0 L Albumin 3.7 Globulin 2.3 Albumin/Globulin Ratio 1.6 Procalcitonin 0.058 08/04/24 08/04/24 20:08 23:04 WBC RBC Hgb Hct MCV MCH MCHC RDW Plt Count Neut % (Auto) Lymph % (Auto) Callahan % (Auto) Eos % (Auto) Baso % (Auto) Neut # (Auto) Lymph # (Auto) Callahan # (Auto) Eos # (Auto) Baso # (Auto) ABG Sample Site Arterial line ABG pH 7.39 ABG pCO2 41.1 ABG pO2 63 L ABG HCO3 25 ABG Total CO2 24 ABG O2 Saturation 91 L ABG Base Excess -0.2 Rajeev Test N/a O2 Delivery Device oxymask FiO2 % 40.0 % Sodium Potassium Chloride Carbon Dioxide BUN Creatinine Estimated GFR BUN/Creatinine Ratio Glucose Lactate Calcium Total Bilirubin AST ALT Alkaline Phosphatase Total Creatine Kinase Troponin I 0.129 H* NT-Pro-B Natriuret Pep Total Protein Albumin Globulin Albumin/Globulin Ratio Procalcitonin Assessment & Plan Assessment and plan (1) Hypertension, uncontrolled: Problem details: Given her age and some reports of uncontrolled hypertension, it is possible that she is simply used to a somewhat high MAPs and that the attempts to control it have reduced renal perfusion, causing oliguria. A component of beta-blockade withdrawal may be a contributor as it appears that her outpt propanolol dose is higher than her inpt dose Status: Acute Plan: -Stop losartan -Would tolerate SBPs 140s-160s (2) Oliguria: Status: Acute Plan: -See discussion above -Given NC O2 rate increase, decrease IVF infusion (3) Tachycardia: Problem details: She is not febrile; does not appear to be infected; does not appear to have sustained a VTE event; nor does she appear to be in pain. Status: Acute Plan: -Would follow for now and give her time to fully clear anesthetics (~ 24H) -If she becomes frankly symptomatic would consider adenosine or diltiazem infusion -Agree w/ 2D echo -Continue propanolol; next dose will be in AM -Check thyroid axis -Check labs @ 0145 Time-Based Coding :: 31 spent with patient and on the chart (including review of chart, obtaining history, exam, reviewing outside data, placing orders, documenting exam and treatment plan, and counseling patient) on 07/31/2024.
[2024-08-05] MEDS: DOCUSATE 100 MG CAPSULE PO ×3 (01:37→20:47)
[2024-08-05] MEDS: ASPIRIN EC 81 MG TABLET PO ×3 (01:40→20:47)
[2024-08-05] MEDS: CEFAZOLIN 2 GM/100 ML PREMIX 100 ML IV ×2 (01:40→08:40)
[2024-08-05 05:26] LABS: Hematocrit 32.8 % (36-46); Hemoglobin 11.2 g/dL (12.0-16.0); Mean Corpuscular HGB Conc 34.3 % (30-36); Mean Corpuscular Hemoglobin 32.7 PG (26-34); Mean Corpuscular Volume 95.4 fL (80-100); Platelet Count 161 X10^3/uL (150-400); Red Blood Cell Count 3.43 X10^6/uL (4.0-5.2); Red Cell Distribution Width 13.4 % (11.6-14.8); White Blood Cell Count 10.9 X10^3/uL (4.5-11.0)
[2024-08-05] MEDS: metroNIDAZOLE 500 MG/100 ML PIGGYBACK 100 MG IV (05:41)
[2024-08-05 06:05] LABS: Troponin I 0.499 ng/mL (0.01-0.034)
[2024-08-05 06:16] LABS: Alanine Aminotransferase 17 IU/L (<35); Albumin 3.3 g/dL (3.5-5.0); Albumin Globulin Ratio 1.4 (1.0-2.8); Alkaline Phosphatase 31 U/L (38-126); Aspartate Aminotransferase 40 IU/L (14-36); BUN Creatinine Ratio 26.9 (6-22); Bilirubin Total 0.6 mg/dL (0.2-1.3); Blood Urea Nitrogen 18 mg/dL (7-17); Carbon Dioxide 25 mmol/L (22-32); Chloride 103 mmol/L (98-107); Estimated Glomerular Filt Rate > 60 mL/min (>60); Globulin 2.3 g/dL (1.7-4.1); Glucose 118 mg/dL (80-110); HEMOLYSIS 43 (0-50); Potassium 4.3 mmol/L (3.4-5.1); Sodium 134 mmol/L (137-145); Total Protein 5.6 g/dL (6.3-8.2)
[2024-08-05 06:40] LABS: TSH w/ Reflex to FT4 0.41 uIU/mL (0.47-4.68)
--- NOTE | 2024-08-05 07:00 | PC.NURSE ---
Patient with Troponin trending up , currently 0.499 from 0.12, BP 131/60, HR 75, denies c/o chest pain , no SOB, tele video technician rehabilitation engineer updated by phone, no new order.
[2024-08-05 07:12] LABS: Free T4, Direct Thyroxine 1.12 ng/dL (0.78-2.19)
[2024-08-05 07:37] LABS: Procalcitonin 0.083 ng/mL (<0.5)
--- NOTE | 2024-08-05 08:00 | DI.ECHO.S_ITS ---
[facility] : : [address] : : [facility] : : [place], : : [place] [address] : : Phone: [phone] Echocardiogram Report + + :Name: FELICIA GARCIA Study Date: 08/05/2024 Height: 66 in : :[facility] ReadingLocation: Weight: 147 lb : : Gender: Female BSA: 1.8 m2 : :: 1935 Age: 89 yrs BP: 138/63 mmHg: :Reason For Study: FLUID OVERLOAD : :Ordering Physician: ESTUARDO, : :JULIAN CHOUDHARY Performed By: Sin Hugo : :Referring: UNSPECIFIED : + + Interpretation Summary The ejection fraction is estimated to be 55-60%. Grade II diastolic dysfunction. The right ventricle is normal in size and function. The right ventricular systolic pressure is estimated to be at least 39 mmHg based on an estimated right atrial pressure of 8 mm Hg. The left atrium is severely dilated. There is mild aortic stenosis. There is moderate aortic regurgitation. There is mild tricuspid regurgitation. The ascending aorta is mildly enlarged 4.3cm. Procedure: A two-dimensional transthoracic echocardiogram with color flow and Doppler was performed. The study quality was technically adequate. There is no prior echocardiogram noted for this patient. The patient was in normal sinus rhythm during the exam. Left Ventricle: The left ventricle is normal in size. There is normal left ventricular wall thickness. Proximal septal thickening is noted. There is no ventricular septal defect visualized. The ejection fraction is estimated to be 55-60%. There are no obvious focal wall motion abnormalities noted but poor endocardial definition reduces the sensitivity for the detection of such. Grade II diastolic dysfunction. Right Ventricle: The right ventricle is normal in size and function. Atria: The left atrium is severely dilated. The right atrium is normal in size. There is no Doppler evidence for an atrial septal defect. Mitral Valve: There is mild mitral annular calcification. The mitral valve leaflets are slightly calcified. There is trace mitral regurgitation. Aortic Valve: The aortic valve is trileaflet. The aortic valve is moderately calcified. There is mild aortic stenosis. The peak aortic velocity is 2.54 m/sec. The aortic valve mean gradient is 15.3 mmHg. The calculated aortic valve area is 1.4 cm2. There is moderate aortic regurgitation. Tricuspid Valve: The tricuspid valve leaflets are thin and pliable. There is mild tricuspid regurgitation. The right ventricular systolic pressure is estimated to be at least 39 mmHg based on an estimated right atrial pressure of 8 mm Hg. Pulmonic Valve: The pulmonic valve is not well seen, but is grossly normal. There is no pulmonic valvular regurgitation. Great Vessels: The aortic root is normal size. The ascending aorta is mildly enlarged. The aortic arch is moderately enlarged. The pulmonary artery is normal size. The IVC is dilated (diameter is greater than 2.1 cm) yet it collapses greater than 50% with a sniff. This suggests a right atrial pressure of 8 mm Hg. Pericardium/ Pleura There is no pericardial effusion. There is no pleural effusion. MMode/2D Measurements & Calculations LVIDd: 4.8 cm AoV Openin.7 cm LVIDs: 3.7 cm LVOT diam: 2.0 cm IVSd: 1.0 cm Ao root diam: 3.3 cm LVPWd: 1.2 cm asc Aorta Diam: 4.3 cm LV pope. diameter/BSA (cm/m^2): 2.7 Ao Arch Diam (Prox Trans): 1.9 cm LV sys. diameter/BSA (cm/m^2): 2.1 FS: 22.5 % EPSS: 0.58 cm LA A2 area: 23.1 cm2 RA long axis: 4.5 cm LA A4 area: 28.6 cm2 RA area: 13.8 cm2 LA length (vol): 6.9 cm RA vol: 36.3 ml LA vol: 80.9 ml RA : 20.7 ml/m2 LA vol index: 46.1 ml/m2 RVD1 (basal): 3.3 cm IVC diam: 2.4 cm RVD2 (mid): 3.0 cm TAPSE: 2.0 cm Doppler Measurements & Calculations Ao V2 max: 254.2 cm/sec LVOT Max Jagdish: 109.0 cm/sec Ao V2 mean: 186.8 cm/sec LV V1 max P.8 mmHg Ao V2 VTI: 53.3 cm LV V1 VTI: 25.1 cm Ao max P.8 mmHg Ao mean P.3 mmHg TEGAN(I,D): 1.4 cm2 AI P1/2t: 351.2 msec TEGAN(V,D): 1.3 cm2 AI dec slope: 441.2 cm/sec2 TEGAN indexed to BSA (cm^2/m^2): 0.82 sev ratio: 0.47 MV E max jagdish: 51.5 cm/sec MV dec time: 0.17 sec MV A max jagdish: 59.6 cm/sec MV E/A: 0.87 Med Peak E' Jagdish: 5.5 cm/sec E/E' med: 9.5 Lat Peak E' Jagdish: 6.7 cm/sec E/E' lat: 7.6 E/e' average: 8.6 TR max jagdish: 279.3 cm/sec PA V2 max: 70.8 cm/sec TR max P.2 mmHg PA V2 mean: 48.3 cm/sec PA mean P.0 mmHg PA pr(Accel): 19.1 mmHg SV(LVOT): 76.7 ml Reading Physician:02:37 PM
[2024-08-05] MEDS: PROPRANOLOL 10 MG TABLET 40 MG PO ×2 (08:37→20:48)
[2024-08-05] MEDS: ACETAMINOPHEN 325 MG TABLET 650 MG PO ×2 (08:38→20:46)
[2024-08-05] MEDS: PRAVASTATIN 20 MG TABLET PO (08:38)
[2024-08-05] MEDS: POTASSIUM CHLORIDE 10 MEQ TAB PO (08:38)
[2024-08-05] MEDS: CHOLECALCIFEROL (VITAMIN D3) 1,000 UNIT TABLET 2000 UNIT PO (08:38)
--- NOTE | 2024-08-05 09:01 | P.PN_ITS ---
Subjective Subjective Interval history: Summary: The Nurse Manipulative Therapy Specialist Brenda Quiñonez called me at 7:32 pm regarding this patient: Rebecca Carpenter is 89 y/o F admitted by me yesterday for R hip Fracture after a GLF a couple of weeks ago, pl;ease see details of my HP from 08/03/24. PMHx of Aortic aneurysm, HTN, accelerated junctional rhythm, noted per Nurse Manipulative Therapy Specialist post op ( pt had ORIF today around 2:30 pm ) was in PACU , Pt had recd 4 mg of Hydrallazine IV plus 4 mg Lopressor for Tachycardia and SBP of 150sAfter 15 mins, as no change in getting VR to decrease, same dose of Hydralazine and Lopressor repeated.This was around 1625 today After thye second dose pt was noted to be moderately Hypotensive, initially in 90s systolic and then decreased to 70 Systolic/ 77/50 , with tachycardia on going ( VR 115-130) Pt additionally had recd total of 2400 mls IVF including 500 mls NS ( PACU) , 50 mls Albumin infusion, 2 x 500 mls boluses, Also was given : Phenylephrine 0,5 mg/ kg/ hour infusion and Neostigmine 1 mg , which temporarily got HR under control, however pt has revereted back to Tachycardia VR in 120s to 130s, and SBP in mid 90s S: She was doing well this morning, good pain control. She denies any nausea. She was having no difficulty with breathing. She was not on oxygen and IV fluids were stopped. She was still has a somewhat low urine output. She was drinking water. Exam Vital Signs (past 8 hours): - 08/05/24 01:30 08/05/24 02:00 08/05/24 02:00 Temperature Pulse Rate 128 H 128 H Respiratory Rate Blood Pressure 97/59 L Pulse Oximetry 94 94 Oxygen Flow Rate 08/05/24 02:30 08/05/24 03:00 08/05/24 03:00 Temperature Pulse Rate 126 H 122 H Respiratory Rate Blood Pressure 102/62 Pulse Oximetry 94 94 Oxygen Flow Rate 08/05/24 03:30 08/05/24 04:00 08/05/24 04:00 Temperature Pulse Rate 118 H 81 Respiratory Rate Blood Pressure 128/60 Pulse Oximetry 94 93 Oxygen Flow Rate 08/05/24 04:30 08/05/24 05:00 08/05/24 05:00 Temperature Pulse Rate 81 77 Respiratory Rate Blood Pressure 124/60 Pulse Oximetry 94 94 Oxygen Flow Rate 08/05/24 05:30 08/05/24 06:00 08/05/24 06:00 Temperature Pulse Rate 76 75 Respiratory Rate Blood Pressure 131/60 Pulse Oximetry 94 95 Oxygen Flow Rate 08/05/24 06:30 08/05/24 07:00 08/05/24 07:00 Temperature Pulse Rate 74 76 Respiratory Rate Blood Pressure 138/61 Pulse Oximetry 95 88 L Oxygen Flow Rate 08/05/24 07:30 08/05/24 08:00 08/05/24 08:00 Temperature 97.7 F Pulse Rate 75 80 Respiratory Rate 16 Blood Pressure Pulse Oximetry 96 95 Oxygen Flow Rate 3 08/05/24 08:00 Temperature Pulse Rate Respiratory Rate Blood Pressure 150/73 H Pulse Oximetry Oxygen Flow Rate Oxygen Delivery Method Nasal Cannula Oxygen Flow Rate 3 Narrative Exam Narrative: NAD, alert and oriented. Fluent speech. Lungs are clear, normal rate and effort. Heart is regular, no murmur gallop or rub. Abdomen is soft, non distended. Extremities are free of edema. Objective ECG Impression: Moderate voltage criteria for LVH, may be normal variant ( Sokolow-Vale , [place] product ) ST & T wave abnormality, consider lateral ischemia Imaging Chest x-ray: Radiologist's impression: Clear. CT scan - chest: Radiologist's impression: 1. No acute pulmonary embolus. 2. Small bilateral pleural effusions. Mild septal line thickening is suspicious for mild interstitial pulmonary edema. 3. Mild cardiomegaly. 4. Mild ectasia of the ascending thoracic aorta, measuring up to 4.2 cm in diameter. 5. Hypoattenuating right thyroid nodules. Absent left thyroid. Recommend nonemergent outpatient thyroid ultrasound for further evaluation. Labs 08/05/24 04:30 08/05/24 04:30 Labs: Laboratory Results - last 24 hr 08/04/24 08/04/24 08/04/24 18:40 20:00 20:08 WBC 16.5 H D RBC 3.76 L Hgb 12.0 Hct 36.0 MCV 95.8 MCH 31.9 MCHC 33.3 RDW 13.5 Plt Count 187 Neut % (Auto) 94.0 H D Lymph % (Auto) 4.0 L Lares % (Auto) 1.7 L Eos % (Auto) 0.1 L Baso % (Auto) 0.2 Neut # (Auto) 66961 H Lymph # (Auto) 700 L Lares # (Auto) 300 Eos # (Auto) 0 Baso # (Auto) 0 ABG Sample Site Arterial line ABG pH 7.39 ABG pCO2 41.1 ABG pO2 63 L ABG HCO3 25 ABG Total CO2 24 ABG O2 Saturation 91 L ABG Base Excess -0.2 Rajeev Test N/a O2 Delivery Device oxymask FiO2 % 40.0 % Sodium 136 L Potassium 4.0 Chloride 103 Carbon Dioxide 25 BUN 16 Creatinine 0.75 Estimated GFR > 60 BUN/Creatinine Ratio 21.3 Glucose 145 H Lactate 1.4 Calcium 8.3 L Total Bilirubin 1.2 AST 33 ALT 17 Alkaline Phosphatase 44 Total Creatine Kinase 81 Troponin I 0.022 NT-Pro-B Natriuret Pep 693 H Total Protein 6.0 L Albumin 3.7 Globulin 2.3 Albumin/Globulin Ratio 1.6 Procalcitonin 0.058 TSH Free T4 08/04/24 08/05/24 23:04 04:30 WBC 10.9 RBC 3.43 L Hgb 11.2 L Hct 32.8 L MCV 95.4 MCH 32.7 MCHC 34.3 RDW 13.4 Plt Count 161 Neut % (Auto) Lymph % (Auto) Lares % (Auto) Eos % (Auto) Baso % (Auto) Neut # (Auto) Lymph # (Auto) Lares # (Auto) Eos # (Auto) Baso # (Auto) ABG Sample Site ABG pH ABG pCO2 ABG pO2 ABG HCO3 ABG Total CO2 ABG O2 Saturation ABG Base Excess Rajeev Test O2 Delivery Device FiO2 % Sodium 134 L Potassium 4.3 Chloride 103 Carbon Dioxide 25 BUN 18 H Creatinine 0.67 Estimated GFR > 60 BUN/Creatinine Ratio 26.9 H Glucose 118 H Lactate Calcium 8.0 L Total Bilirubin 0.6 AST 40 H ALT 17 Alkaline Phosphatase 31 L Total Creatine Kinase Troponin I 0.129 H* 0.499 H* NT-Pro-B Natriuret Pep Total Protein 5.6 L Albumin 3.3 L Globulin 2.3 Albumin/Globulin Ratio 1.4 Procalcitonin 0.083 TSH 0.41 L Free T4 1.12 PFSH Medical History Hypertension, uncontrolled Closed fracture of right hip Social History household members: spouse Smoking Status: Never smoker alcohol intake: current Assessment & Plan Assessment & Plan narrative: 1. Acute Respiratory Hypoxia / Depression with Tachycardia, resolved. No Chest Pain , Troponin is 0.022 , concern for Acute PE? vs Fluid Overload ( flash pulm edema) though BNP could be elevated sec to R heart Strain from ? PE / also concern for Aspiration Pneumonia, given elevated WBCs ( however Leukocytosis could be reactionary / myra as pt is Afebrile and has no cough), EKG, reviewed by me , : Accelerated Junctional Rhythm VR 126 , moderate LVH with ST- T wave abn / reploarization vs less likely Lateral Ischemia 2. Decreased U/O, improving. PACU. Urine electrolytes, and osm ordered BUN and Creat stable , shall closely monitor , Strict Intake and output , daily weights 3. Demand ischemia, new and active. 4. S/P right hip fracture repair. 5. HTN, stable today. PLAN: encourage PO ECHO to assess LV function. Time-Based Coding :: [TOTAL MINUTES] spent with patient and on the chart (including review of chart, obtaining history, exam, reviewing outside data, placing orders, documenting exam and treatment plan, and counseling patient) on [DATE].
--- NOTE | 2024-08-05 11:30 | CM.DANOTE ---
Addendum entered by RAVINDER Appiah 08/05/24 17:18: Per OT, Patient is 2PA and is currently being recommended for SNF Rehab. Pt has endorsed to OT that they are hopeful this is a side effect of pain medication and can progress home. DCP confirmed with patient that preference is still to return home. DCP provided Medicare Choice list to patient and spouse. It is identified that if SNF is still the recommendation the following day, they have a preference for [facility]. Plan: following for pt progress and final recommendations. PIETER Figueroa Original Note: DCP Assessment Note: Pt is a 89yo female, resident of [place], is admitted for acute hypoxia and new ischemia, she is s/p closed fx of right hip. Pt lives in a house with her , Speedy. Pt's Primary Care Provider is Dr. Kaile Barragan and insurance is Medicare and [employer]. Reviewed chart and discussed with multidisciplinary team pt's medical status and initial discharge needs. Per hospitalist, pt pending PT/OT evaluation and echocardiogram to assess LV function. DCP met w/patient at bedside; introduced self and role. Present in the room is pt's , Speedy. Patient was found in bed, alert and oriented, cooperative with assessment. Pt confirmed living situation and good support in and daughter who plans to be with patient for initial recovery period. Pt expressed preference in discharging home when cleared. Pt has no hx of home health or SNF, does not want any referral to be sent out at this time. Pt did state she would be open to home health if recommended; [facility] the only agency to service pt home location. Pt agreeable to working with therapies and following their recommendations. Pt requesting assistance with a ferry priority boarding pass when dc imminent, encouraged to attempt for reservations as well. Plan: Awaiting PT/OT evaluations and recommendation for evolving discharge plans. CM team will follow closely for coordination of discharge plans. PIETER Figueroa Discharge Planning/Care Management Advanced directive, confirm from FAMILY Start: 08/03/24 21:58 Freq: Q24H Status: Active Protocol: Document 08/04/24 01:45 CT (Rec: 08/04/24 02:05 CT [id number]) Advance Directive, confirm on record Time 02:30 Person contacted pt/spouse Copy received No Document 08/05/24 01:00 FM (Rec: 08/05/24 02:10 FM [id number]) Advance Directive, confirm on record Time 02:30 Person contacted pt/spouse Copy received No CM Discharge Assessment Start: 08/05/24 11:27 Freq: Status: Active Protocol: Document 08/05/24 11:27 MW (Rec: 08/05/24 11:29 MW [id number]) Discharge Planning Assessment Assigned Landing Signal Officer RAVINDER Noyola DPOA/Assigned Designee Name Speedy, Spouse Contact Information [phone] Advance Directives? Yes Advance Directives on File No History Provided By Patient Has Patient been admitted in last 30 No days? Prior Living Arrangements House Comment [place] Household Members spouse Type of transporation used prior to Drives own vehicle admit Independent with ADL's Yes Is patient alert and oriented? Yes Caregiver for Another No DME Already Rented / Owned FWW / Walker Patient/Family Preference Home with Home Health Barriers to Discharge No Discharge Plan Home Referrals Initiated None needed Review Status In Process Please Provide Date Initial DC 08/05/24 Assessment Was Performed Next Review Type Continued Stay Review
--- NOTE | 2024-08-05 11:35 | PT.IIE ---
Current Diagnoses Essential (primary) hypertension (08/03/24) Tachycardia, unspecified (08/03/24) Anuria and oliguria (08/03/24) Fracture of unspecified part of neck of right femur, initial encounter for closed fracture (08/03/24) Surgery Performed Operation Date: 08/04/24 13:45 Actual Procedures p Partial hip replacement, repair of abductor(Right) - Kimberlyn Caro MD Medical History (Last Reviewed 08/05/24 @ 09:02 by Rajeev Borja MD) Closed fracture of right hip Hypertension, uncontrolled Physical Therapy Inpatient Evaluation/Re-Eval M1 PT/OT-IP Prior Functional Status Start: 08/05/24 13:04 Freq: NEEDED Status: Active Protocol: Document 08/05/24 11:35 AB (Rec: 08/05/24 13:31 AB [id number]) Medical Review Prior Functional Status Medical History Reviewed Yes Communication able to make needs known; with confusion Mobility and Gait pt stated that she was modified independent with all mobilities and ambulation without AD Social History Household Members spouse Living Arrangements House Number of Floors (Floors) One Floor Number of Stairs To Enter/Railing? no steps to enter Home Environment Standard Height Toilet,Walk in Shower,Tub/Shower Doors Home Equipment Front Wheel Walker,Straight Cane,Manual Wheelchair,Raised Toilet Seat Without Armrests, Shower Seat with Backrest Additional Social History Comment pt will have her spouse and daughter also going to stay with pt to assist at home M2 PT-IP Current Condition Start: 08/05/24 13:04 Freq: NEEDED Status: Active Protocol: Document 08/05/24 11:35 AB (Rec: 08/05/24 13:31 AB [id number]) Physical Therapy Current Condition Current Condition Evaluation Date 08/05/24 Treatment Diagnosis s/p R hip hemiarthroplasty; difficulty in walking Onset Date 08/03/24 M3 PT-IP Subjective Start: 08/05/24 13:04 Freq: NEEDED Status: Active Protocol: Document 08/05/24 11:35 AB (Rec: 08/05/24 13:31 AB [id number]) Subjective Physical Therapy Visit Type Type Initial Evaluation Visit Start Time 11:35 Visit Stop Time 12:40 Number of ELECTRICIAN DECK Visits 0 Physical Therapy Visit Comments Patient Comments agreeable to do PT; has confusion Therapy Pain Assessment Pain When Pain Assessed At Rest Pain Present Pain Present Pain Reported Location Right hip Intensity 6 Scale Used Numeric (0 - 10) Pain Behaviors Guarding,Holding Area Pain Management Techniques Apply Cold,Distraction, Modification of Treatment,Re- positioning,Timing of Activity with Medications M4 PT-IP Mobility and Gait Start: 08/05/24 13:04 Freq: NEEDED Status: Active Protocol: Document 08/05/24 11:35 AB (Rec: 08/05/24 13:31 AB [id number]) PT-Bed Mobility Assessment Supine to Sit Supine to Sit Maximum Assistance,1 Person Assistance,Head of Bed Elevated PT-Transfer Assessment Sit to and From Stand Sit to and from Stand Maximum Assistance,2 Person Assistance,Use of Upper Extremities Equipment Transfer Assistive Device Gait Belt,Front Wheeled Walker Orthotic/Prosthetic Devices or Brace: No Transfers Transfer Destination Chair Transfer Technique Stand Step Pivot Transfer Ability Level of Assist Maximum Assistance,2 Person Assistance,Use of Upper Extremities Comments Mobility Comments pt in bed. spouse in room. obtained PLOF and home set up. postop folder provided to pt . educated pt and spouse regarding R posterior hip precautions. pt with confusion and memory issues and unable to recall precautions. pt needing one step commands with all tasks. O2 sat with 4L/min O2: 94-97% pt completed supine to sit x 2 attempts requiring max A and max cues. pt able to sit on EOB CGA. pt with increase lateral leaning to the L. completed sit to stand max Ax 2 and max cues. needed one step instructions for techniques and precautions. pt completed step transfer to chair using fWW max A x 2 and max cues. shuffling gait. pt rested. BP: 160/73. pt agreed to walk. sit to stand from chair max A x 2 and max cues and ambulated ~ 6 ft using FWW max A x 2 and max cues. antalgic gait and increase lateral leaning to the L. max A x 2 for controlled descent to chair. positioned pt on the chair. call light and table placed within reach. Gait Assessment Gait Gait Assistance Required: Maximum Assistance,2 Person Assist Distance (Feet) 6 Able to Maintain Weight Bearing Status Yes During Gait Assistive Devices Assistive Device Gait Belt,Front Wheeled Walker Orthotic/Prosthetic Devices or Brace: No Gait Deviations General Gait Pattern Antalgic,Decreased Stride Length,Decreased Feet Clearance Factors Limiting Gait Function Factors Limiting Gait Function Decreased Activity Tolerance, Decreased Strength,Difficulty Following Directions,Limited Range of Motion,Pain,Poor Balance,Poor Safety Awareness, Respiratory Distress PT-Balance Assessment Sitting Balance and Reactions Static Sitting Balance Ability Good Dynamic Sitting Balance Ability Fair Standing Balance and Reactions Static Standing Balance Ability Poor Dynamic Standing Balance Ability Poor Device Used FWW M5 PT-IP Objective Assessments Start: 08/05/24 13:04 Freq: NEEDED Status: Active Protocol: Document 08/05/24 11:35 AB (Rec: 08/05/24 13:31 AB [id number]) Orientation Orientation/Cognition Level of Alertness Alert Orientation Name Language Function Ability No Deficits Noted Safety Awareness Decreased Safety Awareness Memory Description Short Term Impaired,Mcc Impaired Comments with slight confusion Gross Range of Motion Lower Extremity ROM Assessment Within Functional Limits Strength Lower Extremity Strength Assessment Right Impaired Hip 3+/5 Knee 3+/5 Muscle Tone Muscle Tone WNL Yes M6 PT-IP Treatment Start: 08/05/24 13:04 Freq: NEEDED Status: Active Protocol: Document 08/05/24 11:35 AB (Rec: 08/05/24 13:31 AB [id number]) Physical Therapy Treatment Education Education Provided Precautions,Weight Bearing Status,Post-Op Packet,Safety M7 PT-IP Assessment and Plan Start: 08/05/24 13:04 Freq: NEEDED Status: Active Protocol: Document 08/05/24 11:35 AB (Rec: 08/05/24 13:31 AB [id number]) PT Summary Assessment and Plan Potential Rehabilitation Potential Fair Status of Condition at Evaluation Evolving Summary Impairments Pain,ROM,Strength,Balance, Coordination,Sensation,Tone, Cognition,Bed Mobility, Transfers,Gait,Activity Tolerance Assessment Summary pt is an 89 y/o F s/p fall and sustain a R hip fx. pt underwent R hip hemiarthroplasty POD 1. pt has R hip posterior precautions and is WBAT. pt requiring max Ax 2 for transfers and ambulation using fWW. pt unable to recall her precautions and needs one step commands with all tasks. pt will benefit from SNF rehag to improve overall strength and function. informed pt's spouse but spouse wants to take pt home is possible. will continue to assess progress. will conduct caregiver training when appropriate. Goals Bed Mobility Goal Minimal Assistance Transfer Goal Minimal Assistance,Front Wheeled Walker Gait Goal Minimal Assistance,Front Wheel Walker Gait Distance 50 Other Goals improve bed mobility, transfers, ambulation using FWW ~ 150ft SBA Days to Meet Goals 10 Frequency of Treatment Frequency Of Treatment Twice a Day Treatment Plan Physical Therapy Treatment Plan Bed Mobility Training,Transfer Training,Gait Training, Therapeutic Exercise,Balance Retraining,Post Op Education, Discharge Planning,Hot or Cold Pack,Neuromuscular Re-ed, Coordination Retraining,Manual Therapy Precautions Posterior Hip Precautions No Hip Flexion > 90 degrees,No Hip Internal Rotation,No Hip Adduction Weight Bearing Status Weight Bearing Status Weight Bear as Tolerated Allowed Weight Bearing Amount (enter % RLE WBAT or #) (%) Recommendations To Nursing Amount of Assist Needed 2 Person Assist Discharge Recommendations PT Discharge Recommendations Home with 19/01 Assist Available,Home Health,SNF Rehab,Home vs SNF Transportation Needs at Discharge Wheelchair/Cabulance
--- NOTE | 2024-08-05 12:50 | OT.IP.EVAL ---
Current Diagnoses Essential (primary) hypertension (08/03/24) Tachycardia, unspecified (08/03/24) Anuria and oliguria (08/03/24) Fracture of unspecified part of neck of right femur, initial encounter for closed fracture (08/03/24) Surgery Performed Operation Date: 08/04/24 13:45 Actual Procedures p Partial hip replacement, repair of abductor(Right) - Kimberlyn Jennifer Caro MD Past Medical History (Last Reviewed 08/05/24 @ 09:02 by Rajeev Borja MD) Closed fracture of right hip Hypertension, uncontrolled Occupational Therapy Inpatient Evaluation/Re-Eval M1 PT/OT-IP Prior Functional Status Start: 08/05/24 13:04 Freq: NEEDED Status: Active Protocol: Document 08/05/24 13:37 [facility] (Rec: 08/05/24 14:08 [facility] [id number]) Medical Review Prior Functional Status Medical History Reviewed Yes Communication able to make needs known; with confusion Mobility and Gait pt stated that she was modified independent with all mobilities and ambulation without AD Activities of Daily Living and IADL's Pt states prior completely independent with all ADL and IADl,pt's does the bills. Social History Household Members spouse Living Arrangements House Number of Floors (Floors) One Floor Number of Stairs To Enter/Railing? no steps to enter Home Environment Standard Height Toilet,Walk in Shower,Tub/Shower Doors Home Equipment Front Wheel Walker,Straight Cane,Manual Wheelchair,Raised Toilet Seat Without Armrests, Shower Seat with Backrest Additional Social History Comment pt will have her spouse and daughter also going to stay with pt to assist at home M2 OT-IP Current Condition Start: 08/05/24 13:36 Freq: Status: Active Protocol: Document 08/05/24 13:37 [facility] (Rec: 08/05/24 14:08 [facility] [id number]) Occupational Therapy Current Condition Current Condition Evaluation Date 08/05/24 Treatment Diagnosis GLF s/p R hip unipolar cemented Diagnosis Onset Date 08/03/24 Post Operative Precautions Posterior Hip Precautions No Hip Flexion > 90 degrees,No Hip Internal Rotation,No Hip Adduction M3 OT- IP Subjective and Pain Start: 08/05/24 13:36 Freq: Status: Active Protocol: Document 08/05/24 13:37 [facility] (Rec: 08/05/24 14:08 [facility] [id number]) OT- Subjective Occupational Therapy Visit Type Type Initial Evaluation Visit Start Time 11:35 Visit Stop Time 12:50 Occupational Therapy Visit Comments Patient Comments Pt agreed to get up , pt's in the room. Patient/Caregiver Goals TO go home. However pt's is open to going to skilled rehab. OT Pain Assessment Pain When Pain Assessed During Mobility Pain Present Pain Present Pain Reported Location Right hip Intensity 6 Scale Used Numeric (0 - 10) M4 OT- IP ADL's Start: 08/05/24 13:36 Freq: Status: Active Protocol: Document 08/05/24 13:37 [facility] (Rec: 08/05/24 14:08 [facility] [id number]) OT [id number] Comments OT Self-Feeding Comments Not at meal time. OT ADL-Grooming General Evaluation Grooming Ability Standby Assistance Comments OT Grooming Comments WHile seated. OT ADL-Oral Care General Eval Oral Care Ability Independent Comments Oral Care Comments WHile seated. OT ADL-Dressing General Eval Lower Body Dressing Ability Maximum Assistance Comments OT Dressing Comments At this time pt needing assist . Pt is also a bit confused and not able to recall her hip precautions. Educated pt's best to dress her RLE first and take out last for LB dressing needs. Use of LB equipment, however at this time best to assist as pt is a bit confused. OT ADL-Toileting General Evaluation Toileting Ability Total Assistance Areas Needing Assistance Empty Catheter or Colostomy Comments OT Toileting Comments Pt guzman in place. Pt would benefit from a bsc at home. AT this time , pt will need two person assist for ADL needs. OT ADL-Bathing Comments OT Bathing Comments Pt will benefit from a shower chair with arms-in which her states they have ordered. SPonge bath more appropriate at this time until able to mobilize better. M5 OT- IP IADL's Start: 08/05/24 13:36 Freq: Status: Active Protocol: Document 08/05/24 13:37 [facility] (Rec: 08/05/24 14:08 [facility] [id number]) OT-Instrumental Activities of Daily Living Deficits IADL Deficits Identified Deficits Home Safety Awareness Awareness of Need for Assistance at Home Decreased Awareness Ability to Problem Solve Emergency Unable to Problem Solve Situations Home Safety Comments Pt a bit confused and not able to recall her precautions. Medication Management Medication Management Comments Pt will need assist due to her confusion amd decreased STM. Money Management Money Management Caregiver Provides Assistance Meal Preparation Meal Preparation Comments Pt will need assist. Bathing Suit Maker Bathing Suit Maker Comments Pt will need assist. M6 OT- IP Functional Cognition Start: 08/05/24 13:36 Freq: Status: Active Protocol: Document 08/05/24 13:37 [facility] (Rec: 08/05/24 14:08 [facility] [id number]) Cognitive Factors Limiting Selfcare Function Cognitive Ability Level of Alertness Confusional State Attention Span Ability Capable of Focused Attention, Unable to Sustain Attention Ability to Follow Commands Able to Follow One Step Commands with Increased Time, Able to Follow One Step Commands with Repetition Memory Description Short Term Impaired Safety Awareness Decreased Recall of Precautions,Decreased Ability to Apply Precautions Cognitive Comments Cognitive Assessment Comments Pt's states pt is not at her baseline cognitively and since having surgery a bit confused and forgetful. Pt repeating her questions several times. Pt not able to recall and needing step by step cues to follow her hip precautions. Pt may benefit from SLUMS once she clears more. OT- Vision and Hearing OT- Hearing Assessment OT- Hearing Assessment WFL OT- Vision Assessment Visual Acuity WFL Visual Attentiveness WFL Occular Pursuits WFL M7 OT- IP Mobility and Balance Start: 08/05/24 13:36 Freq: Status: Active Protocol: Document 08/05/24 13:37 [facility] (Rec: 08/05/24 14:08 [facility] [id number]) OT- Bed Mobility Assessment Supine to Sit Supine to Sit Assist Maximum Assistance,1 Person Assistance OT-Transfer Assessment Sit to and From Stand Sit to and from Stand Maximum Assistance,2 Person Assistance Transfers Transfer Ability Maximum Assistance,2 Person Assistance Technique Transfer Destination Bed,Chair Transfer Technique Stand Step Pivot Devices Transfer Assistive Devices Gait Belt,Front Wheeled Walker Comments Mobility Comments MAX AX 1 to get to the edge of the bed and CGA to sit there. Pt on 3L O2 and at 98%, on RA difficulty to get a good reading as at times drops to low 80's and therefore replaced O2 back on and at 94% . MAXA x2 to stand to the FWW, pt heavily lean to the left. Pt able to take a few steps and assist for balance, guide the FWW and to help prevent from her right knee to turn in . Pt also needing extensive assist to help lower her down to the recliner. 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 OT Strength Upper Extremity Strength Assessment Bilaterally Impaired OT- Coordination Assessment Comments Coordination Comments Assist for opening items. M9 OT- IP Assessment and Plan Start: 08/05/24 13:36 Freq: Status: Active Protocol: Document 08/05/24 13:37 [facility] (Rec: 08/05/24 14:08 [facility] [id number]) OT Summary Assessment and Plan Potential Rehabilitation Potential Good Analytic Complexity at Evaluation Moderate Summary OT Impairments Pain,Range of Motion,Strength, Balance,Coordination, Functional Cognition, Functional Mobility,Self- Feeding,Grooming,Dressing, Toileting,Bathing,Toilet Transfers,Shower Transfers, Activity Tolerance Progress Towards Goals Slow Progress due to Pain,Slow Progress due to Medical Issues,Slow Progress due to Activity Tolerance,Slow Progress due to Cognition Assessment Summary Pt MOD complexity and main barriers are increased confusion after surgery, pain, on O2 and now needing extensive two person assist for transfers and some ADL needs. Pt insistent to go home and seems open to skilled rehab. Therefore pending progress and caregiver training, pt to go to skilled rehab versus home with 24/7 a x2 and home health. Goals Self-Feeding Goal Independent Grooming Goal Independent Dressing Goal Minimal Assistance Toileting Goal Minimal Assistance Bathing Goal Moderate Assistance Toilet Transfer Goal Minimal Assistance Shower Transfer Goal Moderate Assistance Days to Meet Goals 25 Frequency of Treatment Other frequency 5x/week Treatment Plan OT Treatment Plan ADL Training,Functional Cognition Training,Functional Mobility,Patient/Family Education,Discharge Planning Discharge Recommendations OT Discharge Recommendations SNF Rehab Other Discharge Recommendations If pt improves, hopeful to go home with 24/7 assist x2 and home health. Home Equipment Needs BSC, wc, shower chair with armrests, HHSP Transportation Needs at Discharge Wheelchair/Cabulance
--- NOTE | 2024-08-05 13:44 | P.PN_ITS ---
Subjective Subjective Date Patient Seen: 08/05/24 Time Patient Seen: 13:44 Interval history: Pt sitting up in chair wtih family members at bedside. Feeling well, would like to do more physical therapy. Says she was out of the chair briefly to take a few steps around the room. Exam Vital Signs (past 8 hours): - 08/05/24 06:00 08/05/24 06:00 08/05/24 06:30 Temperature Pulse Rate 75 74 Respiratory Rate Blood Pressure 131/60 Pulse Oximetry 95 95 Oxygen Delivery Method Oxygen Flow Rate 08/05/24 07:00 08/05/24 07:00 08/05/24 07:00 Temperature Pulse Rate 76 Respiratory Rate Blood Pressure 138/61 Pulse Oximetry 88 L Oxygen Delivery Method Nasal Cannula Oxygen Flow Rate 08/05/24 07:30 08/05/24 08:00 08/05/24 08:00 Temperature 97.7 F Pulse Rate 75 80 Respiratory Rate 16 Blood Pressure Pulse Oximetry 96 95 Oxygen Delivery Method Oxygen Flow Rate 3 08/05/24 08:00 08/05/24 08:30 08/05/24 09:00 Temperature Pulse Rate 74 74 Respiratory Rate Blood Pressure 150/73 H Pulse Oximetry 94 Oxygen Delivery Method Oxygen Flow Rate 08/05/24 09:01 08/05/24 09:01 08/05/24 09:30 Temperature Pulse Rate 73 79 Respiratory Rate Blood Pressure 136/63 Pulse Oximetry Oxygen Delivery Method Oxygen Flow Rate 08/05/24 10:00 08/05/24 10:00 08/05/24 10:30 Temperature Pulse Rate 80 79 Respiratory Rate Blood Pressure 135/63 Pulse Oximetry Oxygen Delivery Method Oxygen Flow Rate 08/05/24 11:00 08/05/24 11:00 Temperature Pulse Rate 74 Respiratory Rate Blood Pressure 138/63 Pulse Oximetry Oxygen Delivery Method Oxygen Flow Rate Oxygen Delivery Method Nasal Cannula Oxygen Flow Rate 3 Narrative Exam Narrative: 5/5 strength in hip flexors, quadriceps, hamstrings, PF, DF, EHL on right. Sensation to light touch intact throughout RLE, calf soft and compressible. Aquacel dressing CDI. Objective Labs 08/05/24 04:30 08/05/24 04:30 Labs: Laboratory Results - last 24 hr 08/04/24 08/04/24 08/04/24 18:40 20:00 20:08 WBC 16.5 H D RBC 3.76 L Hgb 12.0 Hct 36.0 MCV 95.8 MCH 31.9 MCHC 33.3 RDW 13.5 Plt Count 187 Neut % (Auto) 94.0 H D Lymph % (Auto) 4.0 L Berks % (Auto) 1.7 L Eos % (Auto) 0.1 L Baso % (Auto) 0.2 Neut # (Auto) 01774 H Lymph # (Auto) 700 L [place] # (Auto) 300 Eos # (Auto) 0 Baso # (Auto) 0 ABG Sample Site Arterial line ABG pH 7.39 ABG pCO2 41.1 ABG pO2 63 L ABG HCO3 25 ABG Total CO2 24 ABG O2 Saturation 91 L ABG Base Excess -0.2 Rajeev Test N/a O2 Delivery Device oxymask FiO2 % 40.0 % Sodium 136 L Potassium 4.0 Chloride 103 Carbon Dioxide 25 BUN 16 Creatinine 0.75 Estimated GFR > 60 BUN/Creatinine Ratio 21.3 Glucose 145 H Lactate 1.4 Calcium 8.3 L Total Bilirubin 1.2 AST 33 ALT 17 Alkaline Phosphatase 44 Total Creatine Kinase 81 Troponin I 0.022 NT-Pro-B Natriuret Pep 693 H Total Protein 6.0 L Albumin 3.7 Globulin 2.3 Albumin/Globulin Ratio 1.6 Procalcitonin 0.058 TSH Free T4 08/04/24 08/05/24 23:04 04:30 WBC 10.9 RBC 3.43 L Hgb 11.2 L Hct 32.8 L MCV 95.4 MCH 32.7 MCHC 34.3 RDW 13.4 Plt Count 161 Neut % (Auto) Lymph % (Auto) [place] % (Auto) Eos % (Auto) Baso % (Auto) Neut # (Auto) Lymph # (Auto) [place] # (Auto) Eos # (Auto) Baso # (Auto) ABG Sample Site ABG pH ABG pCO2 ABG pO2 ABG HCO3 ABG Total CO2 ABG O2 Saturation ABG Base Excess Rajeev Test O2 Delivery Device FiO2 % Sodium 134 L Potassium 4.3 Chloride 103 Carbon Dioxide 25 BUN 18 H Creatinine 0.67 Estimated GFR > 60 BUN/Creatinine Ratio 26.9 H Glucose 118 H Lactate Calcium 8.0 L Total Bilirubin 0.6 AST 40 H ALT 17 Alkaline Phosphatase 31 L Total Creatine Kinase Troponin I 0.129 H* 0.499 H* NT-Pro-B Natriuret Pep Total Protein 5.6 L Albumin 3.3 L Globulin 2.3 Albumin/Globulin Ratio 1.4 Procalcitonin 0.083 TSH 0.41 L Free T4 1.12 PFSH Medical History Hypertension, uncontrolled Closed fracture of right hip Social History household members: spouse Smoking Status: Never smoker alcohol intake: current Assessment & Plan Post-op Assessment and plan (1) Status post hip hemiarthroplasty: Assessment and Plan narrative: 1) WBAT to RLE, posterior hip precautions. 2) ASA 81mg BID for VTE prophylaxis unless medically contraindicated. 3) Per pt and family, plan is to discharge home with family when she is medically cleared. 4) Disposition, pain management, VTE prophylaxis per hospitalist. Postoperative Procedures: Procedures Operation Date: 08/04/24 13:45 Actual Procedure Side Surgeon p Partial hip replacement, repair of abductor Right Kimberlyn Jennifer Caro MD Postoperative day: 1
--- NOTE | 2024-08-05 13:59 | PM.PNPO.1 ---
Subjective Subjective Interval history: pt reports pain well controlled with acetaminophen. sitting in chair. able to eat and ambulate. v/s/s Exam Vital Signs (past 8 hours): - 08/05/24 06:00 08/05/24 06:00 08/05/24 06:30 Temperature Pulse Rate 75 74 Respiratory Rate Blood Pressure 131/60 Pulse Oximetry 95 95 Oxygen Delivery Method Oxygen Flow Rate 08/05/24 07:00 08/05/24 07:00 08/05/24 07:00 Temperature Pulse Rate 76 Respiratory Rate Blood Pressure 138/61 Pulse Oximetry 88 L Oxygen Delivery Method Nasal Cannula Oxygen Flow Rate 08/05/24 07:30 08/05/24 08:00 08/05/24 08:00 Temperature 97.7 F Pulse Rate 75 80 Respiratory Rate 16 Blood Pressure Pulse Oximetry 96 95 Oxygen Delivery Method Oxygen Flow Rate 3 08/05/24 08:00 08/05/24 08:30 08/05/24 09:00 Temperature Pulse Rate 74 74 Respiratory Rate Blood Pressure 150/73 H Pulse Oximetry 94 Oxygen Delivery Method Oxygen Flow Rate 08/05/24 09:01 08/05/24 09:01 08/05/24 09:30 Temperature Pulse Rate 73 79 Respiratory Rate Blood Pressure 136/63 Pulse Oximetry Oxygen Delivery Method Oxygen Flow Rate 08/05/24 10:00 08/05/24 10:00 08/05/24 10:30 Temperature Pulse Rate 80 79 Respiratory Rate Blood Pressure 135/63 Pulse Oximetry Oxygen Delivery Method Oxygen Flow Rate 08/05/24 11:00 08/05/24 11:00 Temperature Pulse Rate 74 Respiratory Rate Blood Pressure 138/63 Pulse Oximetry Oxygen Delivery Method Oxygen Flow Rate Oxygen Delivery Method Nasal Cannula Oxygen Flow Rate 3 Objective Labs 08/05/24 04:30 08/05/24 04:30 Labs: Laboratory Results - last 24 hr 08/04/24 08/04/24 08/04/24 18:40 20:00 20:08 WBC 16.5 H D RBC 3.76 L Hgb 12.0 Hct 36.0 MCV 95.8 MCH 31.9 MCHC 33.3 RDW 13.5 Plt Count 187 Neut % (Auto) 94.0 H D Lymph % (Auto) 4.0 L Glades % (Auto) 1.7 L Eos % (Auto) 0.1 L Baso % (Auto) 0.2 Neut # (Auto) 11268 H Lymph # (Auto) 700 L Glades # (Auto) 300 Eos # (Auto) 0 Baso # (Auto) 0 ABG Sample Site Arterial line ABG pH 7.39 ABG pCO2 41.1 ABG pO2 63 L ABG HCO3 25 ABG Total CO2 24 ABG O2 Saturation 91 L ABG Base Excess -0.2 Rajeev Test N/a O2 Delivery Device oxymask FiO2 % 40.0 % Sodium 136 L Potassium 4.0 Chloride 103 Carbon Dioxide 25 BUN 16 Creatinine 0.75 Estimated GFR > 60 BUN/Creatinine Ratio 21.3 Glucose 145 H Lactate 1.4 Calcium 8.3 L Total Bilirubin 1.2 AST 33 ALT 17 Alkaline Phosphatase 44 Total Creatine Kinase 81 Troponin I 0.022 NT-Pro-B Natriuret Pep 693 H Total Protein 6.0 L Albumin 3.7 Globulin 2.3 Albumin/Globulin Ratio 1.6 Procalcitonin 0.058 TSH Free T4 08/04/24 08/05/24 23:04 04:30 WBC 10.9 RBC 3.43 L Hgb 11.2 L Hct 32.8 L MCV 95.4 MCH 32.7 MCHC 34.3 RDW 13.4 Plt Count 161 Neut % (Auto) Lymph % (Auto) Glades % (Auto) Eos % (Auto) Baso % (Auto) Neut # (Auto) Lymph # (Auto) Glades # (Auto) Eos # (Auto) Baso # (Auto) ABG Sample Site ABG pH ABG pCO2 ABG pO2 ABG HCO3 ABG Total CO2 ABG O2 Saturation ABG Base Excess Rajeev Test O2 Delivery Device FiO2 % Sodium 134 L Potassium 4.3 Chloride 103 Carbon Dioxide 25 BUN 18 H Creatinine 0.67 Estimated GFR > 60 BUN/Creatinine Ratio 26.9 H Glucose 118 H Lactate Calcium 8.0 L Total Bilirubin 0.6 AST 40 H ALT 17 Alkaline Phosphatase 31 L Total Creatine Kinase Troponin I 0.129 H* 0.499 H* NT-Pro-B Natriuret Pep Total Protein 5.6 L Albumin 3.3 L Globulin 2.3 Albumin/Globulin Ratio 1.4 Procalcitonin 0.083 TSH 0.41 L Free T4 1.12 PFSH Medical History Hypertension, uncontrolled Closed fracture of right hip Social History household members: spouse Smoking Status: Never smoker alcohol intake: current Assessment & Plan Post-op Postoperative Procedures: Procedures Operation Date: 08/04/24 13:45 Actual Procedure Side Surgeon p Partial hip replacement, repair of abductor Right Kimberlyn A MD G[place]
[2024-08-05] MEDS: TRAMADOL 50 MG TABLET PO ×2 (14:58→20:47)
--- NOTE | 2024-08-05 16:35 | PT-IP ANOTE ---
checked on pt this afternoon and refused PT. stated that she just got back to bed and want to rest.
[2024-08-05] MEDS: SODIUM CHLORIDE 0.9% FLUSH 10 ML IV (20:45)
[2024-08-05] MEDS: ONDANSETRON 4 MG ODT PO (20:58)
[2024-08-06] VITALS (28 sets, daily range): BP systolic 117–168; BP diastolic 58–73; PULSE 67–86; RESP 17–19; TEMP 36.7–37.1; O2SAT 91–97
[2024-08-06] MEDS: TRAMADOL 50 MG TABLET PO (07:29)
[2024-08-06] MEDS: ACETAMINOPHEN 325 MG TABLET 650 MG PO ×2 (07:31→18:31)
--- NOTE | 2024-08-06 08:18 | PM.PNPO.1 ---
Subjective Subjective Date Patient Seen: 08/06/24 Time Patient Seen: 08:18 Interval history: Ms Carpenter is sitting up in bed, in good spirits. Says she let her pain get ahead of her yesterday but did eventually get it under control. Receiving Tylenol and tramadol; has side effects with oxycodone and Dilaudid. She felt she did well with PT yesterday and is still planning to discharge home to the care of her , daughter, and son-in-law. She does feel like she needs one more day in the hospital for PT and pain control. Exam Vital Signs (past 8 hours): - 08/06/24 04:00 Temperature 98.6 F Pulse Rate 79 Respiratory Rate 19 Blood Pressure 139/67 Pulse Oximetry 93 Oxygen Flow Rate 2 Oxygen Delivery Method Nasal Cannula Oxygen Flow Rate 2 Narrative Exam Narrative: 5/5 strength in hip flexors, quadriceps, hamstrings, DF, PF, EHL on right. Sensation to light touch intact throughout RLE, calf soft and compressible. Aquacel dressing CDI. Objective Labs 08/05/24 04:30 08/05/24 04:30 Labs: Laboratory Results - last 24 hr 08/05/24 04:30 M-Gordo % Cancelled U Protein EP PDF Cancelled Urine Total Protein Cancelled Urine Albumin Cancelled U Poekv-[id number] Cancelled U [id number]-[id number] Cancelled U Beta Globulin Cancelled U Gamma Globulin Cancelled Urine PEP Note Cancelled PFSH Medical History Hypertension, uncontrolled Closed fracture of right hip Social History household members: spouse Smoking Status: Never smoker alcohol intake: current Assessment & Plan Post-op Assessment and plan (1) Status post hip hemiarthroplasty: Assessment and Plan narrative: 1) WBAT to RLE, posterior hip precautions. 2) ASA 81mg BID for VTE prophylaxis unless medically contraindicated. 3) Per pt and family, plan is to discharge home with family when she is medically cleared. 4) Disposition, pain management, VTE prophylaxis per hospitalist. Postoperative Procedures: Procedures Operation Date: 08/04/24 13:45 Actual Procedure Side Surgeon p Partial hip replacement, repair of abductor Right Kimberlyn Jennifer Caro MD Postoperative day: 2
[2024-08-06] MEDS: PRAVASTATIN 20 MG TABLET PO (08:22)
[2024-08-06] MEDS: DOCUSATE 100 MG CAPSULE PO ×2 (08:22→20:27)
[2024-08-06] MEDS: CHOLECALCIFEROL (VITAMIN D3) 1,000 UNIT TABLET 2000 UNIT PO (08:23)
[2024-08-06] MEDS: POTASSIUM CHLORIDE 10 MEQ TAB PO (08:23)
[2024-08-06] MEDS: ASPIRIN EC 81 MG TABLET PO ×2 (08:23→20:27)
[2024-08-06] MEDS: PROPRANOLOL 10 MG TABLET 40 MG PO ×2 (08:23→20:29)
[2024-08-06] MEDS: SODIUM CHLORIDE 0.9% FLUSH 10 ML IV ×4 (08:25→20:29)
[2024-08-06 09:13] LABS: Hematocrit 32.1 % (36-46); Mean Corpuscular HGB Conc 34.4 % (30-36); Mean Corpuscular Hemoglobin 32.8 PG (26-34); Mean Corpuscular Volume 95.4 fL (80-100); Platelet Count 160 X10^3/uL (150-400); Red Blood Cell Count 3.36 X10^6/uL (4.0-5.2); Red Cell Distribution Width 13.3 % (11.6-14.8); White Blood Cell Count 10.2 X10^3/uL (4.5-11.0)
[2024-08-06 09:30] LABS: BUN Creatinine Ratio 31.7 (6-22); Blood Urea Nitrogen 19 mg/dL (7-17); Carbon Dioxide 29 mmol/L (22-32); Chloride 99 mmol/L (98-107); Estimated Glomerular Filt Rate > 60 mL/min (>60); Glucose 156 mg/dL (80-110); HEMOLYSIS < 15 (0-50); Potassium 3.8 mmol/L (3.4-5.1); Sodium 132 mmol/L (137-145)
--- NOTE | 2024-08-06 10:30 | PT.IPTN ---
Current Diagnoses Essential (primary) hypertension (08/03/24) Tachycardia, unspecified (08/03/24) Anuria and oliguria (08/03/24) Fracture of unspecified part of neck of right femur, initial encounter for closed fracture (08/03/24) Presence of unspecified artificial hip joint (08/03/24) Surgery Performed Operation Date: 08/04/24 13:45 Actual Procedures p Partial hip replacement, repair of abductor(Right) - Kimberlyn Jennifer Caro MD Physical Therapy Treatment Note M2 PT-IP Current Condition Start: 08/05/24 13:04 Freq: NEEDED Status: Active Protocol: Document 08/05/24 11:35 AB (Rec: 08/05/24 13:31 AB [id number]) Physical Therapy Current Condition Current Condition Evaluation Date 08/05/24 Treatment Diagnosis s/p R hip hemiarthroplasty; difficulty in walking Onset Date 08/03/24 M3 PT-IP Subjective Start: 08/05/24 13:04 Freq: NEEDED Status: Active Protocol: Document 08/06/24 10:30 AB (Rec: 08/06/24 12:55 AB [id number]) Subjective Physical Therapy Visit Type Type Treatment Note Visit Start Time 10:30 Visit Stop Time 10:55 Number of SHOE SINGER Visits 0 Physical Therapy Visit Comments Patient Comments agreeable to do PT Therapy Pain Assessment Pain When Pain Assessed At Rest Pain Present Pain Present Pain Reported Location Right hip Scale Used pain scale not stated Pain Management Techniques Distraction,Modification of Treatment,Re-positioning, Timing of Activity with Medications M4 PT-IP Mobility and Gait Start: 08/05/24 13:04 Freq: NEEDED Status: Active Protocol: Document 08/06/24 10:30 AB (Rec: 08/06/24 12:55 AB [id number]) PT-Bed Mobility Assessment Supine to Sit Supine to Sit Maximum Assistance,1 Person Assistance PT-Transfer Assessment Sit to and From Stand Sit to and from Stand Moderate Assistance,1 Person Assistance,Use of Upper Extremities Equipment Transfer Assistive Device Gait Belt,Front Wheeled Walker Orthotic/Prosthetic Devices or Brace: No Comments Mobility Comments pt in bed and agreed to do PT. completed supine to sit max A and max cues. pt sat on EOB . no c/o dizziness. reviewed hip precautions and pt recalled 2/3. pt completed sit to stand from EOB mod A and max cues for precautions. pt ambulated in room using FWW ~ 40 ft min A and cues. pt c/o feeling fatigue and stated that she has not been eating much. pt refused to do further activities or sit up on the chair. pt wants to go back to bed and rest. pt sat on EOB. completed sit to supine min A for elevating LE to bed. positioned pt on the bed. call light and table placed within reach. informed pt regarding caregiver training this afternoon. pt agreed and will let his spouse know. Gait Assessment Gait Gait Assistance Required: Minimum Assistance Distance (Feet) 40 Able to Maintain Weight Bearing Status Yes During Gait Assistive Devices Assistive Device Gait Belt,Front Wheeled Walker Orthotic/Prosthetic Devices or Brace: No Gait Deviations General Gait Pattern Antalgic,Decreased Stride Length,Decreased Feet Clearance,Flexed Trunk,Step-to Gait Factors Limiting Gait Function Factors Limiting Gait Function Decreased Activity Tolerance, Decreased Strength,Difficulty Following Directions,Limited Range of Motion,Pain,Poor Balance,Poor Safety Awareness M5 PT-IP Objective Assessments Start: 08/05/24 13:04 Freq: NEEDED Status: Active Protocol: Document 08/05/24 11:35 AB (Rec: 08/05/24 13:31 AB [id number]) Orientation Orientation/Cognition Level of Alertness Alert Orientation Name Language Function Ability No Deficits Noted Safety Awareness Decreased Safety Awareness Memory Description Short Term Impaired,Global Coordinator Impaired Comments with slight confusion Gross Range of Motion Lower Extremity ROM Assessment Within Functional Limits Strength Lower Extremity Strength Assessment Right Impaired Hip 3+/5 Knee 3+/5 Muscle Tone Muscle Tone WNL Yes M6 PT-IP Treatment Start: 08/05/24 13:04 Freq: NEEDED Status: Active Protocol: Document 08/06/24 10:30 AB (Rec: 08/06/24 12:55 AB [id number]) Physical Therapy Treatment Education Education Provided Precautions,Safety M7 PT-IP Assessment and Plan Start: 08/05/24 13:04 Freq: NEEDED Status: Active Protocol: Document 08/06/24 10:30 AB (Rec: 08/06/24 12:55 AB [id number]) PT Summary Assessment and Plan Potential Rehabilitation Potential Good Summary Impairments Pain,ROM,Strength,Balance, Coordination,Sensation,Tone, Cognition,Bed Mobility, Transfers,Gait,Activity Tolerance Progress Towards Goals Slow Progress due to Activity Tolerance,Slow Progress - Other Assessment Summary pt improving slowly with mobility. pt requiring max A for bed mobility, mod A for transfers and min A for ambulation using FWW. pt will require 24/7 assist. will conduct caregiver training when appropriate. Goals Bed Mobility Goal Minimal Assistance Transfer Goal Minimal Assistance,Front Wheeled Walker Gait Goal Minimal Assistance,Front Wheel Walker Gait Distance 50 Other Goals improve bed mobility, transfers, ambulation using FWW ~ 150ft SBA Days to Meet Goals 10 Frequency of Treatment Frequency Of Treatment Twice a Day Treatment Plan Physical Therapy Treatment Plan Bed Mobility Training,Transfer Training,Gait Training, Therapeutic Exercise,Balance Retraining,Post Op Education, Discharge Planning,Hot or Cold Pack,Neuromuscular Re-ed, Coordination Retraining,Manual Therapy Precautions Posterior Hip Precautions No Hip Flexion > 90 degrees,No Hip Internal Rotation,No Hip Adduction Weight Bearing Status Weight Bearing Status Weight Bear as Tolerated Allowed Weight Bearing Amount (enter % RLE WBAT or #) (%) Recommendations To Nursing Amount of Assist Needed 1 Person Assist Discharge Recommendations PT Discharge Recommendations Home with 24/7 Assist Available,Home Health,SNF Rehab,Home vs SNF Transportation Needs at Discharge Private Vehicle,Wheelchair/ Cabulance
[2024-08-06] MEDS: ONDANSETRON 4 MG ODT PO (10:59)
--- NOTE | 2024-08-06 11:41 | P.PN_ITS ---
Subjective Subjective Interval history: Summary: The Nurse Line Crew Supervisor Brenda Quiñonez called me at 7:32 pm regarding this patient: Rebecca Carpenter is 89 y/o F admitted by me yesterday for R hip Fracture after a GLF a couple of weeks ago, pl;ease see details of my HP from 08/03/24. PMHx of Aortic aneurysm, HTN, S: Good pain control. No nausea. Able to move the leg to some degree. No shortness a breath. Blood pressure is stable. Exam Vital Signs (past 8 hours): - 08/06/24 04:00 08/06/24 04:09 08/06/24 04:10 Temperature 98.6 F Pulse Rate 79 80 79 Respiratory Rate 19 Blood Pressure 139/67 Pulse Oximetry 93 92 94 Oxygen Delivery Method Oxygen Flow Rate 2 08/06/24 04:10 08/06/24 04:30 08/06/24 05:00 Temperature Pulse Rate 70 69 Respiratory Rate Blood Pressure 139/67 Pulse Oximetry Oxygen Delivery Method Oxygen Flow Rate 08/06/24 05:30 08/06/24 06:00 08/06/24 06:30 Temperature Pulse Rate 71 72 73 Respiratory Rate Blood Pressure Pulse Oximetry Oxygen Delivery Method Oxygen Flow Rate 08/06/24 07:00 08/06/24 07:00 08/06/24 07:30 Temperature Pulse Rate 71 77 Respiratory Rate Blood Pressure Pulse Oximetry Oxygen Delivery Method Nasal Cannula Oxygen Flow Rate 08/06/24 08:00 08/06/24 08:00 08/06/24 08:13 Temperature 98.0 F Pulse Rate 77 75 78 Respiratory Rate 18 Blood Pressure 117/58 L Pulse Oximetry 92 93 Oxygen Delivery Method Oxygen Flow Rate 08/06/24 08:13 08/06/24 08:30 08/06/24 09:00 Temperature Pulse Rate 75 74 Respiratory Rate Blood Pressure 117/58 L Pulse Oximetry Oxygen Delivery Method Oxygen Flow Rate Oxygen Delivery Method Nasal Cannula Oxygen Flow Rate 2 Narrative Exam Narrative: NAD, alert and oriented. Fluent speech. Lungs are clear, normal rate and effort. Heart is regular, no murmur gallop or rub. Abdomen is soft, non distended. Extremities are free of edema. Objective Imaging Echo: Radiologist's impression: The ejection fraction is estimated to be 55-60%. Grade II diastolic dysfunction. The right ventricle is normal in size and function. The right ventricular systolic pressure is estimated to be at least 39 mmHg based on an estimated right atrial pressure of 8 mm Hg. The left atrium is severely dilated. There is mild aortic stenosis. There is moderate aortic regurgitation. There is mild tricuspid regurgitation. The ascending aorta is mildly enlarged 4.3cm. Labs 08/06/24 09:00 08/06/24 09:00 Labs: Laboratory Results - last 24 hr 08/05/24 08/06/24 04:30 09:00 WBC 10.2 RBC 3.36 L Hgb 11.0 L Hct 32.1 L MCV 95.4 MCH 32.8 MCHC 34.4 RDW 13.3 Plt Count 160 Sodium 132 L Potassium 3.8 Chloride 99 Carbon Dioxide 29 BUN 19 H Creatinine 0.60 Estimated GFR > 60 BUN/Creatinine Ratio 31.7 H Glucose 156 H Calcium 8.0 L M-[place] % Cancelled U Protein EP PDF Cancelled Urine Total Protein Cancelled Urine Albumin Cancelled U Dupvz-1-Aplmngan Cancelled U [id number] Cancelled U Beta Globulin Cancelled U Gamma Globulin Cancelled Urine PEP Note Cancelled PFSH Medical History Hypertension, uncontrolled Closed fracture of right hip Social History household members: spouse Smoking Status: Never smoker alcohol intake: current Assessment & Plan Assessment & Plan narrative: 1. Acute Respiratory Hypoxia / Depression with Tachycardia, resolved. No Chest Pain , Troponin is 0.022 , concern for Acute PE? vs Fluid Overload ( flash pulm edema) though BNP could be elevated sec to R heart Strain from ? PE / also concern for Aspiration Pneumonia, given elevated WBCs ( however Leukocytosis could be reactionary / myra as pt is Afebrile and has no cough), EKG, reviewed by me , : Accelerated Junctional Rhythm VR 126 , moderate LVH with ST- T wave abn / reploarization vs less likely Lateral Ischemia 2. Decreased U/O, improving. PACU. Urine electrolytes, and osm ordered BUN and Creat stable , shall closely monitor , Strict Intake and output , daily weights 3. Demand ischemia, new and active. 4. S/P right hip fracture repair. 5. HTN, stable today. PLAN: -PT -Discharge planning, home vs SNF pending progress with PT marek -Ultram PO for pain control. Time-Based Coding :: [TOTAL MINUTES] spent with patient and on the chart (including review of chart, obtaining history, exam, reviewing outside data, placing orders, documenting exam and treatment plan, and counseling patient) on [DATE].
--- NOTE | 2024-08-06 13:30 | PT.IPTN ---
Current Diagnoses Essential (primary) hypertension (08/03/24) Tachycardia, unspecified (08/03/24) Anuria and oliguria (08/03/24) Fracture of unspecified part of neck of right femur, initial encounter for closed fracture (08/03/24) Presence of unspecified artificial hip joint (08/03/24) Surgery Performed Operation Date: 08/04/24 13:45 Actual Procedures p Partial hip replacement, repair of abductor(Right) - Kimberlyn Jennifer Caro MD Physical Therapy Treatment Note M2 PT-IP Current Condition Start: 08/05/24 13:04 Freq: NEEDED Status: Active Protocol: Document 08/05/24 11:35 AB (Rec: 08/05/24 13:31 AB [id number]) Physical Therapy Current Condition Current Condition Evaluation Date 08/05/24 Treatment Diagnosis s/p R hip hemiarthroplasty; difficulty in walking Onset Date 08/03/24 M3 PT-IP Subjective Start: 08/05/24 13:04 Freq: NEEDED Status: Active Protocol: Document 08/06/24 13:30 AB (Rec: 08/06/24 15:38 AB [id number]) Subjective Physical Therapy Visit Type Type Treatment Note Visit Start Time 13:30 Visit Stop Time 14:10 Number of FURNITURE FABRICATOR Visits 0 Physical Therapy Visit Comments Patient Comments agreeable to do PT; c/o nausea and feeling mentally foggy and stated that she feels like her Meniere's is starting M4 PT-IP Mobility and Gait Start: 08/05/24 13:04 Freq: NEEDED Status: Active Protocol: Document 08/06/24 13:30 AB (Rec: 08/06/24 15:38 AB [id number]) PT-Bed Mobility Assessment Sit to Supine Sit to Supine Moderate Assistance,1 Person Assistance PT-Transfer Assessment Sit to and From Stand Sit to and from Stand Moderate Assistance,1 Person Assistance,Use of Upper Extremities Equipment Transfer Assistive Device Gait Belt,Front Wheeled Walker Orthotic/Prosthetic Devices or Brace: No Transfers Transfer Destination Bed Transfer Technique ambulated Transfer Ability Level of Assist Minimal Assistance,1 Person Assistance,Use of Upper Extremities Comments Mobility Comments pt sitting on the chair. spouse in room. pt c/o not feeling right due to pain meds . informed spouse regarding using w/c to get pt into the house if needed since pt is not ready to do stairs as of this morning. spouse agreed and stated that he will use the w/c and his daughter and son-in-law are also available to help them. Pt agreed to do caregiver training. educated spouse on how to use safety belt and how to assist pt. spouse was able to put safety belt on pt. assisted pt for sit to stand from the chair and completed mod A. PT also assisted and cued. instructed pt to sit back down. educated spouse to provide only necessary cues and one step instructions since pt has difficulty processing instructions. Attempted again and pt able to stand with spouse assisiting mod A with cues provided by PT . pt ambulated in room with spouse assisting using FWW min A and cues. pt c/o slight nause and stated that she feels her Meniere's dse is starting. pt requested to go back to bed. completed sit to supine mod A and cues. instructed spouse on how to assist pt and completed. positioned pt on the bed. call light and table placed within reach. pt stated that she usually takes Dramamine for her Meniere's and also ask if it is ok not to take her narcotic pain meds since she gets nauseated and not able to think right with it. informed pt that it is up to her to decide regarding her pain meds but can let nurse know so that they can ask the doctor if there is something else they can try for her pain management. left pt with spouse. informed nurse regarding pt's request for dramamine and other options for pain control . Gait Assessment Gait Gait Assistance Required: Minimum Assistance Distance (Feet) 30 Able to Maintain Weight Bearing Status Yes During Gait Assistive Devices Assistive Device Gait Belt,Front Wheeled Walker Orthotic/Prosthetic Devices or Brace: No Gait Deviations General Gait Pattern Antalgic,Decreased Stride Length,Decreased Feet Clearance,Step-to Gait Factors Limiting Gait Function Factors Limiting Gait Function Decreased Activity Tolerance, Decreased Strength,Difficulty Following Directions,Limited Range of Motion,Pain,Poor Balance,Poor Safety Awareness M5 PT-IP Objective Assessments Start: 08/05/24 13:04 Freq: NEEDED Status: Active Protocol: Document 08/05/24 11:35 AB (Rec: 08/05/24 13:31 AB [id number]) Orientation Orientation/Cognition Level of Alertness Alert Orientation Name Language Function Ability No Deficits Noted Safety Awareness Decreased Safety Awareness Memory Description Short Term Impaired,Certified Ophthalmic Technician Impaired Comments with slight confusion Gross Range of Motion Lower Extremity ROM Assessment Within Functional Limits Strength Lower Extremity Strength Assessment Right Impaired Hip 3+/5 Knee 3+/5 Muscle Tone Muscle Tone WNL Yes M6 PT-IP Treatment Start: 08/05/24 13:04 Freq: NEEDED Status: Active Protocol: Document 08/06/24 13:30 AB (Rec: 08/06/24 15:38 AB [id number]) Physical Therapy Treatment Education Education Provided Precautions,Safety M7 PT-IP Assessment and Plan Start: 08/05/24 13:04 Freq: NEEDED Status: Active Protocol: Document 08/06/24 13:30 AB (Rec: 08/06/24 15:38 AB [id number]) PT Summary Assessment and Plan Potential Rehabilitation Potential Fair Summary Impairments Pain,ROM,Strength,Balance, Coordination,Sensation,Tone, Cognition,Bed Mobility, Transfers,Gait,Activity Tolerance Progress Towards Goals Slow Progress due to Medical Issues,Slow Progress due to Activity Tolerance Assessment Summary Caregiver training initiated but further training is recommended. pt requiring mod A with mobility using FWW and continues to not tolerate much activity due to fatigue. pt this afternoon also stated that she feels her Meniere's dse is starting again. family wants pt to go home as much as possible. pt will require 24/7 assist and will also benefit from HHPT. Goals Bed Mobility Goal Minimal Assistance Transfer Goal Minimal Assistance,Front Wheeled Walker Gait Goal Minimal Assistance,Front Wheel Walker Gait Distance 50 Other Goals improve bed mobility, transfers, ambulation using FWW ~ 150ft SBA Days to Meet Goals 10 Frequency of Treatment Frequency Of Treatment Twice a Day Treatment Plan Physical Therapy Treatment Plan Bed Mobility Training,Transfer Training,Gait Training, Therapeutic Exercise,Balance Retraining,Post Op Education, Discharge Planning,Hot or Cold Pack,Neuromuscular Re-ed, Coordination Retraining,Manual Therapy Other Recommendations and Next Treatment caregiver training when Focus appropriate Precautions Posterior Hip Precautions No Hip Flexion > 90 degrees,No Hip Internal Rotation,No Hip Adduction Weight Bearing Status Weight Bearing Status Weight Bear as Tolerated Allowed Weight Bearing Amount (enter % RLE WBAT or #) (%) Recommendations To Nursing Amount of Assist Needed 1 Person Assist Discharge Recommendations PT Discharge Recommendations Home with 24/7 Assist Available,Home Health,SNF Rehab,Home vs SNF Transportation Needs at Discharge Private Vehicle,Wheelchair/ Cabulance
--- NOTE | 2024-08-06 13:38 | CM.DPC ---
DCP SNF vs HH planning Per MD, pt making progress and likely stable for discharge by tomorrow Sun if remains stable. Per PT, pt improved today and required less assist and unclear if pt will need SNF vs Home with assist and HH as pt currently without appetite and weak but will do CG training this afternoon with pt and spouse to determine d/c needs. SW confirmed that [facility] can accept if SNF needed at d/c but likely do not have transport this weekend but should have the staff for new admit. SW met bedside with pt and spouse and explained role and updated on [facility] acceptance if SNF needed and pt confirms her preference still remains home if possible but they are agreeable to [facility] if needed. Spouse's Dtr is also available for assist and pt states her son could drive up and assist if needed as well. Pt confirms she has Meneer's which impacts her inner ear and dizziness/nauseous and has been struggling to eat enough or have appetite. Pt and spouse aware of plan of likely discharge tomorrow and spouse states he plans to go back to [facility] but can catch the morning ferry to [place] if plan is d/c home tomorrow. Plan: SW to follow closely for further PT CG training this afternoon to confirm [facility] vs home with spouse and family assist and likely need for [facility] referral. RAVINDER Montes
--- NOTE | 2024-08-06 14:39 | PC.NURSE ---
1400 Pt complains of poor appetite, states she feels like Menieres symptoms returning, feeling nauseated and dizzy. Earlier dose of Zofran ineffective. notified for med orders.
[2024-08-06] MEDS: MECLIZINE HCL 12.5 MG TABLET 25 MG PO (15:02)
[2024-08-06] MEDS: polyethylene glycoL 3350 17 GM POWD.PACK PO (17:10)
[2024-08-07] MEDS: ACETAMINOPHEN 325 MG TABLET 650 MG PO (00:11)
[2024-08-07 00:20] VITALS: BP 143/67; PULSE 82; RESP 16; TEMP 36.9; O2SAT 93
[2024-08-07 03:07] VITALS: BP 139/63; PULSE 80; RESP 16; TEMP 36.9; O2SAT 96
[2024-08-07 08:00] VITALS: BP 137/60; PULSE 89; RESP 17; TEMP 36.9; O2SAT 92
[2024-08-07] MEDS: ASPIRIN EC 81 MG TABLET PO (08:19)
[2024-08-07] MEDS: PROPRANOLOL 10 MG TABLET 40 MG PO (08:19)
[2024-08-07] MEDS: PRAVASTATIN 20 MG TABLET PO (08:19)
[2024-08-07] MEDS: POTASSIUM CHLORIDE 10 MEQ TAB PO (08:19)
[2024-08-07] MEDS: CHOLECALCIFEROL (VITAMIN D3) 1,000 UNIT TABLET 2000 UNIT PO (08:19)
[2024-08-07] MEDS: DOCUSATE 100 MG CAPSULE PO (08:20)
[2024-08-07] MEDS: SODIUM CHLORIDE 0.9% FLUSH 10 ML IV (08:26)
--- NOTE | 2024-08-07 09:05 | PT-IP ANOTE ---
PT reviews chart and checks in on pt who is s/p right hip fracture, posterior SAMY and per team, d/cing today and may not need PT. Pt states she understands her hip precautions and does not know if she wants OPPT or HHPT on [facility]. PT last date recommends HHPT at d/c and so will con't with this recommendation as well as recommending assistance at d/c. Pt stating she just got up to chair and wishes to eat breakfast. Will d/c acute PT.
--- NOTE | 2024-08-07 09:29 | PM.DS.1 ---
History of Present Illness History of Present Illness Chief complaint: sent over from MRI something wrong R hip pain Narrative: From H&P: Rebecca Carpenter is an 89 y/o F with history of HTN, HLD, Hypokalemia ( takes Potasium supplement) Post menopausal hormone replacement, Anxiety, who gives history of tripping on a mat in her kitchen, and falling on her R side on to the kitchen's hard wood floor, she did not hit her head, and remained conscious, throughout, she was able to get up, and had been able to bear weight on her RLE, however with on going moderate Pain in her R hip. Her fall occurred about 2 weeks ago, on a Thursday. On following Thursday she was seen at local ED ( pt lives at one of the [facility]), an XR of her R hip done, and pt was told, no fracture of her R hip seen. She went home, but continued with R hip pain, on weight bearing especialy on her RLE. She saw her PCP, last , and a routine MRI of R hip ordered. Pt was able to have her MRI R hip done and was sent from MRI to ED at , for evaluation, given a R hip Femoral Neck fracture noted on this study. Pt denies CP, SOB, f/c, cough, abd pain, N/V/ Dysuria or Flank pain.Denies headache or neck pain. In ED, her SBP was elevated, at 188/77,rest of her VS were stable. Her O2 sats were adequate on RA Labs : mild Hypokalemia, K : 3.3, otherwise unremarkable She was given Dilaudid 0.5 mg IV Also given Amlodipine 2.5 mg po once and Losartan 50 mg po once Recd Zofran x once Dr Caro with Orthopedics consulted by ED, and Dr Caro agreed referring pt for admission to hospitalist, pt to be NPO after mn, and ortho planning R hip surgery for the morning. Discharge Providers Provider Date of admission: 08/03/24 20:21 Discharge Date: 08/07/24 Primary care physician: Kalie Barragan MD Consults: 08/03/24 21:24 Consult to Occupational Therapy Evaluate & Treat Comment: Physician Instructions: Evaluate and treat Consult to Physical Therapy Evaluate & Treat Comment: Physician Instructions: Evaluate and Treat 08/04/24 14:07 Consult to Anesthesiology Routine Comment: Consulting Provider: Anesthesiologist Reason for consultation: Regional block for post operative pain control 08/05/24 00:34 Consult to Discharge Planning Routine Comment: Consult to Occupational Therapy Evaluate & Treat Comment: Physician Instructions: Evaluate and treat Consult to Physical Therapy Evaluate & Treat Comment: Physician Instructions: post op SAMY protocol Procedures: Partial hip replacement, repair of abductor Right 08/04. Discharge provider: Rajeev Borja MD Summary Hospital Course Discharge Diagnosis: 1. Ground level fall with right hip fracture and subsequent partial hip replacement, present on admission and active. 2. Postoperative hypotension, and dyspnea as well as pulmonary edema, new and resolved. 3. Acute hypoxic respiratory failure in the postoperative phase, resolved. 4. Hypertension, stable. Hospital Course: She was admitted underwent a hip repair. In the postoperative phase she was found to have an accelerated junctional rhythm as well as a systolic blood pressure of 150. She was given hydralazine and then became hypotensive. She then required a fluid resuscitation and intermittent phenylephrine. She became hypoxemic, and a troponin was 0.022. Her BNP was elevated. Ultimately she resolved all of these issues and came off from oxygen. An echo revealed mild aortic regurgitation but otherwise was fairly unremarkable. She did well for the next 2 days and had no further issues. She advance with physical therapy without further difficulties. She was felt to be stable on August 07 for discharge home and we will follow up with her PCP within the next week and Orthopedics within the next 2 weeks. She will take aspirin b.i.d. for 3-4 weeks for DVT prophylaxis and avoid ibuprofen. She was found to be sensitive to opiate pain medications and did fairly well on low-dose tramadol. This will be provided for her outpatient need for pain control if it exceeds Tylenol. Status at Discharge Cognitive/behavioral status at discharge: oriented Functional status at discharge: uses cane/walker Overall status at discharge: patient is progressing back to baseline Time Spent with Patient Time spent: Greater than 30 minutes Exam Vital Signs (past 8 hours): - 08/07/24 03:07 08/07/24 08:00 Temperature 98.4 F 98.5 F Pulse Rate 80 89 Respiratory Rate 16 17 Blood Pressure 139/63 137/60 Pulse Oximetry 96 92 Oxygen Flow Rate 0 0 Oxygen Delivery Method Nasal Cannula Oxygen Flow Rate 0 Narrative Exam Narrative: NAD, alert and oriented. Fluent speech. Lungs are clear, normal rate and effort. Heart is regular, no murmur gallop or rub. Abdomen is soft, non distended. Extremities are free of edema. Objective Labs 08/06/24 09:00 08/06/24 09:00 Labs: Laboratory Results - last 24 hr 08/06/24 09:00 Sodium 132 L Potassium 3.8 Chloride 99 Carbon Dioxide 29 BUN 19 H Creatinine 0.60 Estimated GFR > 60 BUN/Creatinine Ratio 31.7 H Glucose 156 H Calcium 8.0 L [facility] Medical History Hypertension, uncontrolled Closed fracture of right hip Social History household members: spouse Smoking Status: Never smoker alcohol intake: current Discharge Assessment & Plan Assessment and Plan Assessment: 1. Ground level fall with right hip fracture and subsequent partial hip replacement, present on admission and active. 2. Postoperative hypotension, and dyspnea as well as pulmonary edema, new and resolved. 3. Acute hypoxic respiratory failure in the postoperative phase, resolved. 4. Hypertension, stable. Plan of Treatment: Discharge home and follow up as noted above with PCP within a week and Orthopedics within 2 weeks. She was primarily use Tylenol for pain control and aspirin b.i.d. for DVT prophylaxis. Discharge Plan Discharge Plan Patient Disposition: Home Provider Discharge Comment: Stable for discharge to home. Discharge orders & Medications Prescriptions: New aspirin 81 mg Tablet,Delayed Release (Dr/Ec) 81 mg PO BID Qty: 60 0RF tramadol 50 mg Tablet 25 mg PO QID PRN (Reason: Pain, Moderate (4-6)) Qty: 15 0RF Continued propranolol 80 mg capsule,extended release 24hr 80 mg PO QAM propranolol 120 mg capsule,extended release 24hr 120 mg PO ONCE PM propranolol 40 mg tablet 40 mg PRN PRN (Reason: arrythmia) Patient Comments: [NO ORIGINAL SIG] losartan 50 mg tablet 50 mg PO BID Patient Comments: unsure if 25mg bid or 50mg bid or 50mg daily Allergy (diphenhydramine) 50 mg tablet 50 mg PO PRN PRN (Reason: Dizziness Or Vertigo) amlodipine 2.5 mg tablet 5 mg DAILY acetaminophen 500 mg Tablet 500 mg PO QID PRN (Reason: Pain (Scale Score 1-3)) cholecalciferol (vitamin D3) 2,000 Units tablet 2,000 units PO DAILY potassium chloride 10 mEq capsule, extended release 10 meq PO DAILY lidocaine 5 % adhesive patch,medicated 1 patch topical DAILY PRN (Reason: Back Pain) pravastatin 20 mg tablet 20 mg DAILY estradiol 0.01 % (0.1 mg/gram) cream 1 g vaginal 3XW triazolam 0.25 mg tablet 0.125 mg PO ONCE PM PRN (Reason: Dizziness Or Vertigo) promethazine [Promethegan] 25 mg suppository 25 mg LA Q6H PRN (Reason: nausea/vomiting) Follow up/Referrals: Kalie Barragan MD [Primary Care Provider] - Kimberlyn Caro MD [Physician] - 2 Weeks (F/u w/ PA or Dr Caro at [facility] for wound check and reimaging.) Discharge Health Status Multidrug resistant organism: No MDRO Diet/Activity/Treatments Diet: Regular Activity: Weightbearing as tolerated to right leg. Posterior hip precautions. Visit Report/Discharge Packet Instructions: DI for Hip Replacement, DI for Prescription Opioid Use Stand Alone Forms: Patient Portal/API Discharge Data Primary Care Provider: Kalie Barragan
--- NOTE | 2024-08-07 09:57 | PM.PNPO.1 ---
Subjective Subjective Interval history: She is making steady progress with physical therapy. Her pain seems to be adequately controlled with combination of Tylenol and ibuprofen. She had 1 tramadol yesterday and it made her a little spacey. Exam Vital Signs (past 8 hours): - 08/07/24 03:07 08/07/24 08:00 Temperature 98.4 F 98.5 F Pulse Rate 80 89 Respiratory Rate 16 17 Blood Pressure 139/63 137/60 Pulse Oximetry 96 92 Oxygen Flow Rate 0 0 Oxygen Delivery Method Nasal Cannula Oxygen Flow Rate 0 Narrative Exam Narrative: Her dressing is dry she is ambulating in the ardon gait slightly antalgic I observed her getting in and out of bed and she looked reasonably safe observing hip precautions. Calf is soft distally. She was neurologically intact distally. Objective Labs 08/06/24 09:00 08/06/24 09:00 [facility] Medical History Hypertension, uncontrolled Closed fracture of right hip Social History household members: spouse Smoking Status: Never smoker alcohol intake: current Assessment & Plan Post-op Postoperative Procedures: Procedures Operation Date: 08/04/24 13:45 Actual Procedure Side Surgeon p Partial hip replacement, repair of abductor Right Kimberlyn A MD [place] Postoperative day: 3 Postoperative status: doing well Postoperative status narrative: She is doing well postoperatively. I think she is safe to be discharged to home. We talked about attempting to get in-home physical therapy we are unsuccessful with that I think it is fine for her to go to outpatient physical therapy. She is worked with both [facility] and [facility] in the past and I recommended that she called both of them to figure out who can work her into the schedule. She can be weight-bearing as tolerated on the right lower extremity and do posterior hip precautions with no hip abductor strengthening for 6 weeks. Postoperative plan: discharge
--- NOTE | 2024-08-07 14:28 | CM.DPC ---
DCP Discharge Home Per MD, pt is medically stable to discharge home today and outpt f/u and no identified barriers to discharge. Per RN, pt ambulated the halls with nursing staff and spouse arrived bedside from Thursday and [place] due to pt's pain and discomfort. PT did not see pt today as she wanted to eat breakfast and had already ambulated. SW provided pt with Priority Boarding Pass and she confirms her preference is to discharge home today with spouse support and local Dtr assist and currently she does not feel HH referral needed and plans to look into outpt PT. No further needs at this time. Plan: Patient to d/c home via spouse POV back to Thursday today and outpt f/u. RAVINDER Montes
== END 2024-08-07 12:45 | disposition home or self-care (01) | DRG 521 ==
LOC: ED 20:20 → AC 20:22 → ICU 08-04 20:53
PROVIDERS: Emergency Medicine; Hospitalist; Internal Medicine Critical Care Medicine; Nurse Anesthetist, Certified Registered; Orthopaedic Surgery; Admitting Provider Hospitalist; Emergency Provider Student in an Organized Health Care Education/Training Program; PCP Specialist; Referring Provider Student in an Organized Health Care Education/Training Program; Visit Provider Hospitalist
PROC: 0SRR0JZ Replacement of Right Hip Joint, Femoral Surface with Synthetic Substitute, Open Approach (ICD-10-PCS; CPT 27125; principal; 2024-08-04 13:45)
DX: S72.011A Unspecified intracapsular fracture of right femur, initial encounter for closed fracture (principal); J81.0 Acute pulmonary edema; J95.821 Acute postprocedural respiratory failure; I47.10 Supraventricular tachycardia, unspecified; I24.89 Other forms of acute ischemic heart disease; J95.89 Other postprocedural complications and disorders of respiratory system, not elsewhere classified; I10 Essential (primary) hypertension; E86.0 Dehydration; H81.09 Meniere's disease, unspecified ear; S76.011A Strain of muscle, fascia and tendon of right hip, initial encounter; R34 Anuria and oliguria; I95.81 Postprocedural hypotension; I35.1 Nonrheumatic aortic (valve) insufficiency; E78.5 Hyperlipidemia, unspecified; W01.0XXA Fall on same level from slipping, tripping and stumbling without subsequent striking against object, initial encounter; Z88.0 Allergy status to penicillin; Z79.890 Hormone replacement therapy; Y83.8 Other surgical procedures as the cause of abnormal reaction of the patient, or of later complication, without mention of misadventure at the time of the procedure; S76.811A Strain of other specified muscles, fascia and tendons at thigh level, right thigh, initial encounter; S76.012A Strain of muscle, fascia and tendon of left hip, initial encounter; M16.0 Bilateral primary osteoarthritis of hip; M71.552 Other bursitis, not elsewhere classified, left hip; M47.898 Other spondylosis, sacral and sacrococcygeal region; M25.551 Pain in right hip; R10.31 Right lower quadrant pain
CPT/HCPCS: 36415; 36600; 71045; 71275; 72170; 73502; 73721; 80048; 80053; 82550; 82805; 83605; 83735; 83880; 84145; 84439; 84443; 84484; 85025; 85027; 85610; 87040; 93005; 93306; 96374; 96375; 97162; 97166; 97530; 97535; 99284; 99285; C1776; C1713; J0171; J0330; J0360; J0666; J0690; J0696; J1100; J1171; J1885; J1940; J2405; J2704; J3010; J3410; P9041; Q9967

== ENCOUNTER 2024-09-14 08:44 | Inpatient (IN) | payer MEDICARE, OTHER, SELFPAY ==
[2024-08-03 21:46] VITALS: BMI 23.8
[2024-09-12 12:24] VITALS: BMI 23.3
[2024-09-14] VITALS (15 sets, daily range): BP systolic 101–165; BP diastolic 56–97; PULSE 60–77; RESP 9–18; TEMP 36.4–37.6; O2SAT 91–99; BMI 23.3
--- NOTE | 2024-09-14 | DI.RAD.S_ITS ---
PROCEDURE: XR HIP W PEL IF DONE RT 2V INDICATIONS: INTRA OP RT HIP ORIF TECHNIQUE: 3 intraoperative fluoroscopic views of the hip were acquired. COMPARISON: [facility] [place], CR, XR PELVIS WITH LATERAL HIP RIGHT, 09/07/2024, 14:27. [facility], CR, XR HIP W PEL IF DONE RT 2V, 08/04/2024, 17:15. FINDINGS: Intraoperative fluoroscopic images shows internal fixation of previously noted displaced periprosthetic fracture of right proximal femur. IMPRESSION: Fluoro guidance was provided intraoperatively for ORIF of right proximal femur adjacent to the right hip prosthesis. Dictated by: Henry Diallo M.D. on 09/14/2024 at 15:38 Approved by: Henry Diallo M.D. on 09/14/2024 at 15:39
--- NOTE | 2024-09-14 | DI.RAD.S_ITS ---
PROCEDURE: XR HIP W PEL IF DONE RT 2V INDICATIONS: POST OP RIGHT ORIF TECHNIQUE: AP pelvis with lateral view(s) of the right hip(s). COMPARISON: [facility] [place], CR, XR PELVIS WITH LATERAL HIP RIGHT, 09/07/2024, 14:27. [facility], CR, XR HIP W PEL IF DONE RT 2V, 09/14/2024, 14:38. [facility], CR, XR HIP W PEL IF DONE RT 2V, 08/04/2024, 17:15. FINDINGS: Bones: New cerclage wire fixation about the proximal right femur. There is anatomic alignment of the superior aspect of the greater trochanter. Right hip arthroplasty. Prosthesis appears stable. Pelvic ring appears intact. No suspicious bony lesions. Soft tissues: No suspicious soft tissue calcifications. Skin staple line. IMPRESSION: Expected postoperative appearance. Anatomic alignment of the greater trochanter post cerclage wire fixation. Dictated by: Yoshi Sandoval M.D. on 09/14/2024 at 15:48 Approved by: Yoshi Sandoval M.D. on 09/14/2024 at 15:51
[2024-09-14] MEDS: LACTATED RINGERS 1,000 ML 42 ML IV ×2 (10:14→15:04)
[2024-09-14] MEDS: ACETAMINOPHEN IV 1,000 MG/100 ML VIAL 400 MG IV (10:15)
[2024-09-14 10:31] LABS: Add Manual Diff / Slide Review NO; Basophils Absolute Auto 100 /uL (0-100); Basophils Percent Auto 1.1 % (0-2); Eosinophils Absolute Auto 200 /uL (0-450); Eosinophils Percent Auto 3.2 % (2-4); Hemoglobin 10.8 g/dL (12.0-16.0); Lymphocytes Absolute Auto 1100 /uL (1100-4500); Lymphocytes Percent Auto 19.6 % (25-40); Mean Corpuscular HGB Conc 33.8 % (30-36); Mean Corpuscular Hemoglobin 32.5 PG (26-34); Mean Corpuscular Volume 96.3 fL (80-100); Monocytes Absolute Auto 400 /uL (0-900); Monocytes Percent Auto 6.6 % (3-14); Neutrophils Absolute Auto 3900 /uL (1500-7000); Neutrophils Percent Auto 69.5 % (50-75); Platelet Count 238 X10^3/uL (150-400); Red Blood Cell Count 3.32 X10^6/uL (4.0-5.2); Red Cell Distribution Width 14.9 % (11.6-14.8); White Blood Cell Count 5.5 X10^3/uL (4.5-11.0)
[2024-09-14 10:44] LABS: BUN Creatinine Ratio 32.1 (6-22); Blood Urea Nitrogen 18 mg/dL (7-17); Carbon Dioxide 25 mmol/L (22-32); Chloride 105 mmol/L (98-107); Estimated Glomerular Filt Rate > 60 mL/min (>60); Glucose 106 mg/dL (80-110); HEMOLYSIS < 15 (0-50); Potassium 3.6 mmol/L (3.4-5.1); Sodium 140 mmol/L (137-145)
[2024-09-14] MEDS: VANCOMYCIN 1,000 MG in SODIUM CHLORIDE 0.9% 250 ML 250 MG IV (11:40)
--- NOTE | 2024-09-14 11:57 | PM.PREOP ---
Pre-operative Note Interval Note History & Physical reviewed/Exam performed by Physician: Yes Changes to H&P: No
--- NOTE | 2024-09-14 11:58 | PM.OP.1 ---
Operative Date/Time/Diagnoses Date of procedure: 09/14/24 Time of procedure: 12:10 Pre-op diagnosis: Right hip greater trochanter fracture, history of right unipolar, history of right femoral neck fracture Post-op diagnosis: same Procedure & Clinicians Procedure: ORIF right greater trochanter Same procedure as scheduled: Yes Indications: The patient has a history of a right femoral neck fracture which was fixed with a unipolar. She is about 6-8 weeks postoperatively and had some increased bruising and an x-ray showed a right greater trochanter fracture which went on to displacement. She was being compliant with a walker but still has severe osteoporosis and a new right greater trochanter fracture. We discussed her options in detail and got cardiac clearance and are now bringing her back to the operating room for open reduction internal fixation of her right greater trochanter. The risks, benefits and alternatives to surgery were discussed with the patient prior to proceeding. Risks discussed included, but were not limited to, failure to relieve pain, leg length discrepancy, dislocation, stiffness, infection, nerve damage, deep venous thrombosis, pulmonary embolism, stroke, coma, heart attack, permanent paralysis and , as well as the potential need for eventual revision of the prosthetic. Surgeon: Kimberlyn Caro Database Administration Project Manager: Aristides Garcia Anesthesia Type: General and Spinal Operative Notes Findings: Extremely soft bone, adequate reduction, Closure Type: primary Specimen(s): none sent Prosthetic devices, grafts, tissues, transplants, or devices: Caro and nephew cable plate, Kinemet cable Estimated Blood Loss (mL): 200 Blood products transfused: none Procedure in detail: Patient was brought to the operating room. A time-out was performed. Antibiotics were given. Patient underwent induction of general anesthesia. She was carefully positioned in a lateral decubitus position prepped draped standard sterile fashion. Patient's previous skin incision was used it was extended slightly proximally and distally dissection was carried out through skin and subcutaneous tissues. There was a moderate hematoma. Fluid was sent for Gram stain culture and sensitivity. Dissection was carried out down to the trochanter. The trochanteric fracture was identified it was grossly displaced. It was meticulously cleaned and freed and I specifically removed some hematoma from the fracture site. The trochanter was then carefully mobilized. Cables were passed around the lesser trochanter. I used a kitten met table initially and the patient had very soft trochanter and I actually attempted to pass the cable through the trochanter and around the trochanter. The trochanter was captured with a cable. It was carefully then tightened. It was little difficult to pass the cable. An Arthrex large fiber light wire loop was used. Some reduction of the fracture was achieved. It was really felt that I needed the cerclage cable to in order to adequately capture the fragment. Meticulously worked to get the plate around past total of 3 cables and then used the cables to carefully tightened and pull the plate down to the bone tightening and on the bone. Fracture did appear to be stable at the completion of the procedure. It was adequately reduced. I felt that there was significant comminution and pretty soft bone and so went ahead and bone grafted that area with DBM FX. Marcaine was carefully injected. The wound was closed with interrupted Vicryl and skin elmer. A PA was used initially during the procedure and then Dr. Ureña came and helped to assist with complex fracture reduction. Patient tolerated the procedure well. He was transferred to recovery room in satisfactory condition. Complications none postoperative plan is partial weight-bearing on the right lower extremity walking as tolerated no hip abductor strengthening exercises. Avoid aggressive abduction. Home when safe. Complications: none Post-operative Condition: stable Disposition: Acute Care Plan for aftercare: no hip abductor strengthening. Protected weight-bearing with a walker. Posterior hip precautions. Home when safe.
[2024-09-14] MEDS: CEFAZOLIN 2 GM/100 ML PREMIX 100 ML IV ×2 (12:27→20:32)
[2024-09-14] MEDS: TRANEXAMIC ACID 1,000 MG VIAL 1000 MG INJ ×2 (12:29→14:51)
[2024-09-14] MEDS: BUPIVACAINE 0.25% W/ EPI 30 ML VIAL 60 ML INJ (12:56)
[2024-09-14] MEDS: BUPIVACAINE LIPOSOME 266 MG/20 ML VIAL INJ (12:58)
[2024-09-14] MEDS: HYDROMORPHONE 1 MG INJ IV (15:35)
[2024-09-14] MEDS: hydrOXYzine 50 MG/ML INJ 25 MG IM (15:46)
[2024-09-14] MEDS: HYDROMORPHONE 2 MG TABLET PO ×2 (16:10→20:40)
[2024-09-14] MEDS: LACTATED RINGERS 1,000 ML 100 ML IV ×2 (16:52→20:37)
[2024-09-14] MEDS: ACETAMINOPHEN 325 MG TABLET 650 MG PO (16:56)
[2024-09-14] MEDS: ONDANSETRON 4 MG ODT PO (17:52)
[2024-09-14] MEDS: IBUPROFEN 400 MG TABLET PO (18:56)
--- NOTE | 2024-09-14 19:41 | PC.NURSE ---
Limb alert bracelet applied to lt arm. No void since surgery. Bladder scanned for 510 mls. Placed on commoded x2 vd 125 the 250ml. Pure wick applied as it is difficult for pt to move. She reports no problems.
[2024-09-14] MEDS: PROPRANOLOL 10 MG TABLET 40 MG PO (20:37)
[2024-09-14] MEDS: AMLODIPINE 5 MG TABLET 2.5 MG PO (20:38)
[2024-09-14] MEDS: LOSARTAN 50 MG TABLET PO (20:38)
[2024-09-14] MEDS: DOCUSATE 100 MG CAPSULE PO (20:39)
[2024-09-14] MEDS: ASPIRIN EC 81 MG TABLET PO (20:39)
[2024-09-14] MEDS: LIDOCAINE 5% PATCH 1 EACH TOP (22:07)
[2024-09-15] VITALS (7 sets, daily range): BP systolic 98–136; BP diastolic 47–70; PULSE 65–76; RESP 15–18; TEMP 36.4–37; O2SAT 95–98
--- NOTE | 2024-09-15 00:42 | PC.WOUNDPHOT ---
RLE Right ankle Right thigh
[2024-09-15] MEDS: CEFAZOLIN 2 GM/100 ML PREMIX 100 ML IV (04:44)
[2024-09-15 06:10] LABS: Hematocrit 24.3 % (36-46); Hemoglobin 8.2 g/dL (12.0-16.0)
[2024-09-15] MEDS: HYDROMORPHONE 2 MG TABLET PO ×3 (07:00→18:47)
[2024-09-15] MEDS: ACETAMINOPHEN 325 MG TABLET 650 MG PO ×2 (07:00→18:47)
[2024-09-15] MEDS: ONDANSETRON 4 MG ODT PO ×3 (07:03→18:48)
[2024-09-15] MEDS: POTASSIUM CHLORIDE 10 MEQ TAB PO (08:28)
[2024-09-15] MEDS: ASPIRIN EC 81 MG TABLET PO ×2 (08:28→21:35)
[2024-09-15] MEDS: DOCUSATE 100 MG CAPSULE PO ×2 (08:29→21:34)
[2024-09-15] MEDS: CHOLECALCIFEROL (VITAMIN D3) 1,000 UNIT TABLET 2000 UNIT PO (08:29)
[2024-09-15] MEDS: LOSARTAN 50 MG TABLET PO ×2 (08:29→21:35)
[2024-09-15] MEDS: IBUPROFEN 400 MG TABLET PO (08:29)
[2024-09-15] MEDS: AMIODARONE 200 MG TABLET PO (08:31)
--- NOTE | 2024-09-15 10:00 | PT.IIE ---
Current Diagnoses Presence of right artificial hip joint (09/14/24) Surgery Performed Operation Date: 09/14/24 11:45 Actual Procedures p ORIF fracture of greater trochanter (right)(Right) - Kimberlyn Caro MD Surgical History (Last Updated 09/12/24 @ 13:30 by Rebecca Bragg, RN) History of hip surgery (08/04/24) History of hysterectomy Hx of bilateral cataract extraction Hx of lumpectomy Hx of partial thyroidectomy Hx of umbilical hernia repair Medical History (Last Updated 09/12/24 @ 14:56 by Rebecca Bragg RN) Anesthesia complication Aortic aneurysm Carcinoma in situ of left breast (~2004) Closed fracture of right hip History of COVID-19 (05/2023) Hypertension, uncontrolled Meniere's disease Monoclonal gammopathy Occipital neuralgia Paget disease Physical Therapy Inpatient Evaluation/Re-Eval M1 PT/OT-IP Prior Functional Status Start: 09/15/24 11:54 Freq: NEEDED Status: Active Protocol: Document 09/15/24 11:54 [facility] (Rec: 09/15/24 12:11 [facility] [id number]) Medical Review Prior Functional Status Medical History Reviewed Yes Communication I Mobility and Gait Pt just beginning to not use the FWW for a few steps. Activities of Daily Living and IADL's Pt's able to assist for LB dressing needs and showering needs. Social History Household Members spouse Living Arrangements House Number of Floors (Floors) One Floor Number of Stairs To Enter/Railing? One Home Environment Standard Height Toilet,Walk in Shower,Tub/Shower Home Equipment Front Wheel Walker,Four Wheel Walker,Straight Cane,Raised Toilet Seat Without Armrests, Shower Seat with Backrest,Hand Held Shower Additional Social History Comment S/P R femoral neck fx R abductor 08/04/25 M2 PT-IP Current Condition Start: 09/15/24 11:57 Freq: NEEDED Status: Active Protocol: Document 09/15/24 10:00 D[facility] (Rec: 09/15/24 12:22 D[facility] [id number]) Physical Therapy Current Condition Current Condition Evaluation Date 09/15/24 Treatment Diagnosis right femur ORIF 09/14/24 Onset Date 09/14/24 M3 PT-IP Subjective Start: 09/15/24 11:57 Freq: NEEDED Status: Active Protocol: Document 09/15/24 10:00 D[facility] (Rec: 09/15/24 12:22 DLM [id number]) Subjective Physical Therapy Visit Type Type Initial Evaluation Visit Start Time 09:04 Visit Stop Time 10:00 Notes 54 minutes Number of QC ANALYST Visits 0 Physical Therapy Visit Comments Patient Comments She reports her is able to help her at home. She is worried about bathroom issues while taking the ferry home to [facility]. She thinks it would be helpful to have therapy at home. Patient Goals discharge home Therapy Pain Assessment Pain When Pain Assessed During Mobility Pain Present Pain Present Pain Reported Location Right hip Intensity 7 Scale Used Numeric (0 - 10) Description Aching,Tender,With Movement Pain Behaviors Facial Grimacing,Guarding, Wincing Pain Management Techniques Apply Cold,Re-positioning, Timing of Activity with Medications M4 PT-IP Mobility and Gait Start: 09/15/24 11:57 Freq: NEEDED Status: Active Protocol: Document 09/15/24 10:00 D[facility] (Rec: 09/15/24 12:22 DL [id number]) PT-Bed Mobility Assessment Supine to Sit Supine to Sit Minimal Assistance,Head of Bed Elevated Scooting Scooting to Edge of Bed Standby Assistance PT-Transfer Assessment Sit to and From Stand Sit to and from Stand Standby Assistance,Use of Upper Extremities Equipment Transfer Assistive Device Gait Belt,Front Wheeled Walker Transfers Transfer Destination Chair Transfer Technique Stand Step Pivot Transfer Ability Level of Assist Standby Assistance,Use of Upper Extremities Comments Mobility Comments She needs education and verbal reminders to use her UE's to safely assist with Sit-stand by pushing up and then reaching back to control descent. Pt urinated on the bedside commode while up ambulating in room this visit. Pt returned to bed to rest after activity. No recliner is in her room at this time. Pt able to do all activity on room air. Pt on 1 LPM oxygen at rest. Gait Assessment Gait Gait Assistance Required: Standby Assistance Distance (Feet) 30 Assistive Devices Assistive Device Gait Belt,Front Wheeled Walker Gait Deviations General Gait Pattern Antalgic,Decreased Stride Length,Step-to Gait Factors Limiting Gait Function Factors Limiting Gait Function Decreased Activity Tolerance, Decreased Strength,Limited Range of Motion,Pain,Poor Balance Comments Gait Comments small steps during gait but safe use of the FWW with good use of UE compensation on the FWW, she is using partial weight bearing on right LE with pain limiting. PT-Balance Assessment Sitting Balance and Reactions Static Sitting Balance Ability Normal Dynamic Sitting Balance Ability Normal Standing Balance and Reactions Static Standing Balance Ability Good Dynamic Standing Balance Ability Good Device Used FWW M5 PT-IP Objective Assessments Start: 09/15/24 11:57 Freq: NEEDED Status: Active Protocol: Document 09/15/24 10:00 D[facility] (Rec: 09/15/24 12:22 DLM [id number]) Orientation Orientation/Cognition Level of Alertness Alert Orientation Name,Age,Birthday,Month,Date, Year,Day of Week,Place, Situation Language Function Ability Hard of Hearing Safety Awareness Understands Safety Issues Memory Description Short Term Impaired Comments she believes she is forgetful this AM related to pain medications Gross Range of Motion Upper Extremity ROM Assessment Within Functional Limits Lower Extremity ROM Assessment Right Impaired Impairments pain limits hip movements, also limited by hip precautions Strength Upper Extremity Strength Assessment Within Functional Limits Lower Extremity Strength Assessment Right Impaired Hip hip flex 2+/5, hip abduction not assessed due to post-op limitations Knee ext 4-/5 with pain Ankle DF 4+/5 Coordination Assessment Gross Coordination Gross Coordination WNL Sensation Assessment Sensation Gross Sensation WNL Muscle Tone Muscle Tone WNL Yes M6 PT-IP Treatment Start: 09/15/24 11:57 Freq: NEEDED Status: Active Protocol: Document 09/15/24 10:00 DLM (Rec: 09/15/24 12:22 DLM [id number]) Physical Therapy Treatment Exercises Exercises Ankle Pumps Education Education Provided Precautions,Weight Bearing Status,Post-Op Packet,Safety Other Treatments Other Treatment Performed Her is present this visit for therapy, educated pt and Spouse to avoid any hip abduction exercises and they were crossed off of the HEP. M7 PT-IP Assessment and Plan Start: 09/15/24 11:57 Freq: NEEDED Status: Active Protocol: Document 09/15/24 10:00 DLM (Rec: 09/15/24 12:22 DLM [id number]) PT Summary Assessment and Plan Potential Rehabilitation Potential Good Status of Condition at Evaluation Evolving Summary Impairments Pain,ROM,Strength,Balance, Cognition,Bed Mobility, Transfers,Gait,Activity Tolerance Assessment Summary Rebecca is alert and resting in bed. She was admitted for right femur ORIF after a fracture was found during ortho follow-up after right hip unipolar replacement in Feb. Pt also has a hip abductor muscle tear. She underwent right femur ORIF . Pt reports feeling a little foggy this AM and has mild decreased memory. She was able to progress to gait with the FWW in her room. She urinated on the bedside commode while she was up. Her is at bedside and is very supportive. He is able to assist her as needed at discharge. Recommend pt use her FWW at all times at discharge to help with protective weight bearing on right LE post-op. Recommend discharge home with Spouse when she is medically stable. She is a good candidate for home health Physical Therapy when ortho feels she is ready. Goals Bed Mobility Goal Independent Transfer Goal Independent,Front Wheeled Walker Gait Goal Independent,Front Wheel Walker Gait Distance 100 feet Other Goals demonstrate posterior hip precautions during functional mobility Days to Meet Goals 5 Frequency of Treatment Frequency Of Treatment Once a Day Treatment Plan Physical Therapy Treatment Plan Bed Mobility Training,Transfer Training,Gait Training, Therapeutic Exercise,Balance Retraining,Post Op Education, Discharge Planning,Hot or Cold Pack,Neuromuscular Re-ed Precautions Posterior Hip Precautions No Hip Flexion > 90 degrees,No Hip Internal Rotation,No Hip Adduction Other Precautions No hip abduction exercises due to hip abductor muscle tear right hip unipolar hip replacement 08/14/24 Weight Bearing Status Weight Bearing Status Partial Weight Bearing Allowed Weight Bearing Amount (enter % protected weight bearing right or #) (%) LE with FWW post-op Recommendations To Nursing Amount of Assist Needed 1 Person Assist Discharge Recommendations PT Discharge Recommendations Home with Assistance,Home Health Other Discharge Recommendations pt to use her FWW at all times Transportation Needs at Discharge Private Vehicle - PT assist 1P
[2024-09-15] MEDS: PROPRANOLOL 10 MG TABLET 40 MG PO ×4 (10:31→21:36)
--- NOTE | 2024-09-15 10:54 | PM.PNPO.1 ---
Subjective Subjective Interval history: Rebecca is a pleasant 89 year old female who is POD#1 s/p ORIF right greater trochanter by Dr. Caro. This morning patient reports having a significant amount of pain, reports the pain from this surgery is greater than her unipolar hip surgery. She has been able to urinate but has a lot of pain w/ WB still which makes it difficult. She has been working w/ PT but [place] at home w/ her on [place], she also has a daughter who lives in [place] who is able to provide some additional support as needed. She does have a walker at home. Denies hx of blood clot. Denies fever, chills, chest pain, SOB, nausea, vomiting. Exam Vital Signs (past 8 hours): - 09/15/24 03:00 09/15/24 08:20 09/15/24 08:29 Temperature 98.6 F 97.6 F Pulse Rate 76 67 67 Respiratory Rate 18 17 Blood Pressure 98/47 L 130/66 130/66 Pulse Oximetry 96 96 Oxygen Flow Rate 1 1 Oxygen Delivery Method Nasal Cannula Oxygen Flow Rate 1 Narrative Exam Narrative: Patient lying comfortably in bed during our interview today. No acute distress. AOx3. 5/5 strength with DF, PF, EHL bilaterally. Gross sensation intact throughout bilateral lower extremities. Calves soft and non-tender bilaterally. SCDs are on and functioning. Brisk capillary refill, pulses intact. Post-surgical Aquacel dressing clean, dry and intact over the right hip without drainage. 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 Hypertension, uncontrolled Closed fracture of right hip Surgical History (Updated 09/12/24 @ 13:30 by Rebecca Bragg RN) Hx of bilateral cataract extraction Hx of umbilical hernia repair History of hysterectomy Hx of partial thyroidectomy Hx of lumpectomy History of hip surgery (08/04/24) Social History household members: spouse Smoking Status: Never smoker alcohol intake: current Assessment & Plan Post-op Postoperative Procedures: Procedures Operation Date: 09/14/24 11:45 Actual Procedure Side Surgeon p ORIF fracture of greater trochanter (right) Right Kimberlyn Jennifer Caro MD Postoperative plan narrative: 1) Plan to discharge to home with /family pending progress w/ PT and improvement in pain control. Likely 1-2 days. Patient will also need assistance obtaining a toilet seat riser for use at home prior to d/c. 2) Continue multimodal pain management with ice to the hip for additional pain control. 3) ASA b.i.d. for DVT prophylaxis. 4) Patient will need a referral to [place] for outpatient physical upon d/c. Physical therapy to work with patient on safe ambulation and mobility. No hip abductor strengthening. Protected weight-bearing with a walker. Posterior hip precautions. 5) Keep dressing intact, clean, dry until 2 week postop appointment. No soaking the incision site in pools or tubs. No topical ointments or creams to the incision site. 6) Follow up at [facility] orthopedics in 2 weeks for a postop appointment and wound check w/ X-Rays. All patient's questions were answered, they demonstrates understanding and are in agreement with the plan. Call our office if any questions or concerns arise. Quality VTE Deep Vein Thrombosis/Pulmonary Embolism Present on Admission: No
--- NOTE | 2024-09-15 11:23 | OT.IP.EVAL ---
Current Diagnoses Presence of right artificial hip joint (09/14/24) Surgery Performed Operation Date: 09/14/24 11:45 Actual Procedures p ORIF fracture of greater trochanter (right)(Right) - Kimberlyn Caro MD Past Medical History (Last Updated 09/12/24 @ 14:56 by Rebecca Bragg, RN) Anesthesia complication Aortic aneurysm Carcinoma in situ of left breast (~2004) Closed fracture of right hip History of COVID-19 (05/2023) Hypertension, uncontrolled Meniere's disease Monoclonal gammopathy Occipital neuralgia Paget disease Surgical History (Last Updated 09/12/24 @ 13:30 by Rebecca Bragg, RN) History of hip surgery (08/04/24) History of hysterectomy Hx of bilateral cataract extraction Hx of lumpectomy Hx of partial thyroidectomy Hx of umbilical hernia repair Occupational Therapy Inpatient Evaluation/Re-Eval M1 PT/OT-IP Prior Functional Status Start: 09/15/24 11:54 Freq: NEEDED Status: Active Protocol: Document 09/15/24 11:54 [facility] (Rec: 09/15/24 12:11 [facility] [id number]) Medical Review Prior Functional Status Medical History Reviewed Yes Communication I Mobility and Gait Pt just beginning to not use the FWW for a few steps. Activities of Daily Living and IADL's Pt's able to assist for LB dressing needs and showering needs. Social History Household Members spouse Living Arrangements House Number of Floors (Floors) One Floor Number of Stairs To Enter/Railing? One Home Environment Standard Height Toilet,Walk in Shower,Tub/Shower Home Equipment Front Wheel Walker,Four Wheel Walker,Straight Cane,Raised Toilet Seat Without Armrests, Shower Seat with Backrest,Hand Held Shower Additional Social History Comment S/P R femoral neck fx R abductor 08/04/25 M2 OT-IP Current Condition Start: 09/15/24 11:54 Freq: Status: Active Protocol: Document 09/15/24 11:54 [facility] (Rec: 09/15/24 12:11 [facility] [id number]) Occupational Therapy Current Condition Current Condition Evaluation Date 09/15/24 Treatment Diagnosis S/P R ORIF HIp Diagnosis Onset Date 09/14/24 Post Operative Precautions Posterior Hip Precautions No Hip Flexion > 90 degrees,No Hip Internal Rotation,No Hip Adduction Other Precautions NO hip abductor strengthening Weight Bearing Status Weight Bearing Status Partial Weight Bearing Allowed Weight Bearing Amount (enter % Protected WB with FWW or #) (%) M3 OT- IP Subjective and Pain Start: 09/15/24 11:54 Freq: Status: Active Protocol: Document 09/15/24 11:54 [facility] (Rec: 09/15/24 12:11 [facility] [id number]) OT- Subjective Occupational Therapy Visit Type Type Initial Evaluation Visit Start Time 10:30 Visit Stop Time 11:23 Occupational Therapy Visit Comments Patient Comments Pt agreed to get up to the recliner and go over ADL equipment needs. Patient/Caregiver Goals TO go home. OT Pain Assessment Pain When Pain Assessed During Mobility Pain Present Pain Present Pain Reported Location Right hip Pain Behaviors Facial Grimacing,Holding Area M4 OT- IP ADL's Start: 09/15/24 11:54 Freq: Status: Active Protocol: Document 09/15/24 11:54 [facility] (Rec: 09/15/24 12:11 [facility] [id number]) OT [id number] Comments OT Self-Feeding Comments NOt at meal time and pt states not been hungry. OT ADL-Grooming Comments OT Grooming Comments NOt performed. OT ADL-Oral Care Comments Oral Care Comments NOt performed. OT ADL-Dressing General Eval Lower Body Dressing Ability Maximum Assistance Areas Needing Assistance Socks Comments OT Dressing Comments Able to show pt use of family court registrar and sock aid. OT ADL-Toileting Comments OT Toileting Comments Pt not having to go at this time. OT ADL-Bathing Comments OT Bathing Comments Went over care of dressing for showering needs. Spoke of getting a toilet safety frame versus BSC. Educated to pt best to stand and wip in order to best follow her hip precautions. Pt states has to use the toilet often at night and would benefit from a BSC. M5 OT- IP IADL's Start: 09/15/24 11:54 Freq: Status: Active Protocol: Document 09/15/24 11:54 [facility] (Rec: 09/15/24 12:11 [facility] [id number]) OT-Instrumental Activities of Daily Living Home Safety Awareness Awareness of Need for Assistance at Home Good Awareness Home Safety Comments Pt a little groggy a this time but aware to call out to her for assist if needed at home. Meal Preparation Meal Preparation Comments Pt will need assist. Rn Family Practice Rn Family Practice Comments Pt will need assist. M6 OT- IP Functional Cognition Start: 09/15/24 11:54 Freq: Status: Active Protocol: Document 09/15/24 11:54 [facility] (Rec: 09/15/24 12:11 [facility] [id number]) Cognitive Factors Limiting Selfcare Function Cognitive Ability Level of Alertness Alert Patient Orientation Name,Place,Situation Attention Span Ability Capable of Focused Attention, Capable of Sustained Attention Ability to Follow Commands Able to Follow One Step Commands Cognitive Comments Cognitive Assessment Comments Pt able to states her hip precautions and needing initial vc for FWW safety. M7 OT- IP Mobility and Balance Start: 09/15/24 11:54 Freq: Status: Active Protocol: Document 09/15/24 11:54 [facility] (Rec: 09/15/24 12:11 [facility] [id number]) OT- Bed Mobility Assessment Supine to Sit Supine to Sit Assist Minimal Assistance OT-Transfer Assessment Sit to and From Stand Sit to and from Stand Contact Guard Assistance Transfers Transfer Ability Contact Guard Assistance Technique Transfer Destination Bed,Chair Comments Mobility Comments MICHAEL to assist her RLE to the edge of the bed. CGA to stand to the FWW and walk around the bed to the recliner. O2 off at 98% and per nursing okay to left off at this time. 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 OT Strength Comments Strength Comments At least 3+/5 M9 OT- IP Assessment and Plan Start: 09/15/24 11:54 Freq: Status: Active Protocol: Document 09/15/24 11:54 [facility] (Rec: 09/15/24 12:11 [facility] [id number]) OT Summary Assessment and Plan Potential Rehabilitation Potential Good Analytic Complexity at Evaluation Moderate Summary OT Impairments Pain,Strength,Balance, Functional Mobility,Grooming, Dressing,Toileting,Bathing, Toilet Transfers,Shower Transfers,Activity Tolerance Progress Towards Goals Progressing Toward Goals Assessment Summary Pt MOD complexity and doing well at this time. Pt having precaution of protected WB with use of FWW at this time due to history of recent prior fx. Pt to go home with 24/7 assist and home health when medically stable. Goals Self-Feeding Goal Independent Grooming Goal Independent Dressing Goal Moderate Assistance Toileting Goal Standby Assistance Bathing Goal Minimal Assistance Toilet Transfer Goal Independent Shower Transfer Goal Standby Assistance Days to Meet Goals 10 Frequency of Treatment Other frequency 5x/week Treatment Plan OT Treatment Plan ADL Training,Functional Mobility,Patient/Family Education,Discharge Planning Discharge Recommendations OT Discharge Recommendations Home with 24/7 Assist Available,Home Health Home Equipment Needs BSC/toilet safety frame Transportation Needs at Discharge Private Vehicle
--- NOTE | 2024-09-15 12:17 | CM.DANOTE ---
Initial DCP Assessment Visit Note Reviewed EMR and team rounds for pt's medical status and updates. Pt is a 89 year-old F who resides modified independently with her spouse [place]. Her spouse and dtr will transport her back home when she's medically stable for d/c, likely 2-more days. Pt expressed wanting Home Health at d/c, and indicated [facility] as her preference. Sent referral, and [facility] can accept. PATIENT TRANSITION SPECIALIST explained to pt/family that [facility] will contact them within 48-hours post-discharge to schedule the intake visit. No further CM d/c needs are identified at this time. Payor: Medicare Attending: Dr. Kimberlyn Caro Pt is a 89 year-old F post-op day 1 from a R-hip fracture fixation surgery, the second one in a month. Pt had the first surgery on 08/04/24 for the original R-hip fracture, was doing well, then fell and landed again on that same hip, resulting in another fracture. Pt does use a walker at baseline, has good family/community support, and has a f/u visit plan with Ortho after 2-weeks. Plan today is to focus on working with therapies. Will continue to monitor for any further evolving needs. Discharge Planning/Care Management CM Discharge Assessment Start: 09/15/24 12:13 Freq: Status: Active Protocol: Document 09/15/24 12:13 [facility] (Rec: 09/15/24 12:17 [facility] [id number]) Discharge Planning Assessment Assigned Band Maker RAVINDER [place] Advance Directives? Yes Advance Directives on File No History Provided By Patient,Family Member, Significant Other Has Patient been admitted in last 30 No days? Comment Pt did just have R-hip fracture fixation surgery here at on 08/04/24. Prior Living Arrangements House Household Members spouse Type of transporation used prior to Relies on Others admit Independent with ADL's Yes Is patient alert and oriented? Yes Needs Assistance With Home Chores / Shopping Community Services used prior to Physical Therapy admission: DME Already Rented / Owned Bath Bench,Elevated Toilet Seat,FWW / Walker Patient/Family Preference Home with Home Health Barriers to Discharge No Discharge Plan Home Community Services Physical Therapy Transportation Arrangement Spouse Referrals Initiated Home Health If patient plan is home with home health Yes : Has signed face to face form been completed? Medicare Choice List Provided Yes Medicare choice list reviewed on patient,family electronic tablet with SNF/HH Preference [facility] Has Agency SNF been contacted Yes Comment They verified that they can accept. Whiteboard Updated in Patient Room with Yes name and ext. # of Band Maker Review Status In Process Please Provide Date Initial DC 09/15/24 Assessment Was Performed
[2024-09-15] MEDS: PRAVASTATIN 20 MG TABLET PO (21:35)
[2024-09-15] MEDS: AMLODIPINE 5 MG TABLET 2.5 MG PO (21:35)
[2024-09-16] MEDS: ACETAMINOPHEN 325 MG TABLET 650 MG PO ×2 (02:24→12:57)
[2024-09-16] MEDS: IBUPROFEN 400 MG TABLET PO (02:25)
[2024-09-16] MEDS: ONDANSETRON 4 MG ODT PO (02:27)
--- NOTE | 2024-09-16 08:14 | P.DS_ITS ---
History of Present Illness History of Present Illness Date Patient Seen: 09/16/24 Time Patient Seen: 08:14 Chief complaint: Right ORIF Femur Fracture INPT Narrative: The patient has a history of a right femoral neck fracture which was fixed with a unipolar. She is about 6-8 weeks postoperatively and had some increased bruising and an x-ray showed a right greater trochanter fracture which went on to displacement. She was being compliant with a walker but still has severe osteoporosis and a new right greater trochanter fracture. Discharge Providers Provider Date of admission: 09/14/24 08:44 Discharge Date: 09/16/24 Primary care physician: Kalie Barragan MD Consults: 09/14/24 08:55 Consult to Anesthesiology Routine Comment: Consulting Provider: Anesthesiologist Reason for consultation: Post operative pain managment Has provider been notified: No 09/14/24 16:35 Consult to Discharge Planning Routine Comment: Consult to Occupational Therapy Evaluate & Treat Comment: Physician Instructions: Evaluate and treat Consult to Physical Therapy Evaluate & Treat Comment: Physician Instructions: post op SAMY protocol 09/15/24 12:07 Consult to Home Health Routine Comment: PT Reason For Exam: Home Health Services Discharge provider: Aristides Garcia PA-C Summary Hospital Course Discharge Diagnosis: Right hip greater trochanter fracture, history of right unipolar, history of right femoral neck fracture Hospital Course: Procedure: ORIF right greater trochanter Same procedure as scheduled: Yes Surgeon: Kimberlyn [facility] Attendant: Aristides Garcia Anesthesia Type: General and Spinal Operative Notes Findings: Extremely soft bone, adequate reduction, Closure Type: primary Specimen(s): none sent Prosthetic devices, grafts, tissues, transplants, or devices: Caro and nephew cable plate, Kinemet cable Estimated Blood Loss (mL): 200 Blood products transfused: none Time Spent with Patient Time spent: Less than 30 minutes Exam Vital Signs (past 8 hours): Oxygen Delivery Method Nasal Cannula Oxygen Flow Rate 1 Narrative Exam Narrative: Rebecca is a pleasant 89 year old female who is POD#2 status post ORIF right greater trochanter by Dr. Caro. This morning patient reports having reduced amount of pain compared to yesterday. She has been taking diludid but plans to transfer to tramadol today. She has been able to urinate. She has been working with PT. She lives at home w/ her on [address], she also has a daughter who lives in [place] who is able to provide some additional support as needed. She does have a walker at home. Denies hx of blood clot. Denies fever, chills, chest pain, SOB, nausea, vomiting. Patient sitting comfortably in bedside chair during our interview today. No acute distress. AOx3. 5/5 strength with DF, PF, EHL bilaterally. Gross sensation intact throughout bilateral lower extremities. Calves soft and non-tender bilaterally. Brisk capillary refill, pulses intact. 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 2) Continue multimodal pain management with ice to the hip for additional pain control. 3) ASA b.i.d. for DVT prophylaxis for 6 weeks. 4) Patient will need a referral to [facility] for outpatient physical upon d/c. Physical therapy to work with patient on safe ambulation and mobility. No hip abductor strengthening. Protected weight-bearing with a walker. Posterior hip precautions. 5) Keep dressing intact, clean, dry until 2 week postop appointment. No soaking the incision site in pools or tubs. No topical ointments or creams to the incision site. 6) Follow up at [facility] orthopedic in 2 weeks for a postop appointment and wound check w/ X-Rays. Discharge Plan Discharge Plan Patient Disposition: Home Provider Discharge Comment: Pending normalization of H&H Discharge orders & Medications Prescriptions: New ondansetron 4 mg Tablet,Disintegrating 4 mg PO Q8HR PRN (Reason: Nausea) Qty: 10 0RF tramadol 50 mg Tablet 50 mg PO Q4HR Qty: 40 0RF Continued propranolol 120 mg capsule,extended release 24hr 120 mg PO BEDTIME losartan 50 mg tablet 50 mg PO BID Patient Comments: unsure if 25mg bid or 50mg bid or 50mg daily amlodipine 2.5 mg tablet 2.5 mg PO BEDTIME acetaminophen 500 mg Tablet 500 mg PO QID PRN (Reason: Pain (Scale Score 1-3)) cholecalciferol (vitamin D3) [Vitamin D3] 50 mcg (2,000 unit) Capsule 50 mcg PO DAILY Qty: 0 potassium chloride 10 mEq capsule, extended release 10 meq PO DAILY lidocaine 5 % adhesive patch,medicated 1 patch topical DAILY PRN (Reason: Back Pain) pravastatin 20 mg tablet 20 mg DAILY estradiol 0.01 % (0.1 mg/gram) cream 1 g vaginal 3XW triazolam 0.25 mg tablet 0.125 mg PO ONCE PM PRN (Reason: Dizziness Or Vertigo) promethazine [Promethegan] 25 mg suppository 25 mg HI Q6H PRN (Reason: nausea/vomiting) aspirin 81 mg tablet,delayed release (DR/EC) 81 mg PO DAILY amiodarone 200 mg Tablet 200 mg PO DAILY Follow up/Referrals: Kalie Barragan MD [Primary Care Provider] - Diet/Activity/Treatments Diet: Diet as Tolerated Activity: Ambulate multiple times a day. Use a cane or walker as needed. Full weight on leg. Cold/Heat Therapy: Use ice multiple times a day. Skin/Wound/Dressing Care Report to your healthcare provider any signs of infection, such as:: chills, fever, night sweats, unusual drainage and unusual redness Dressing: May shower. Leave dressing in place until follow up in office. No bathing or otherwise soaking incision. Call the office if the dressing becomes saturated inside. Visit Report/Discharge Packet Instructions: DI for Open Reduction Internal Fixation Surgery, DI for Prescription Opioid Use Stand Alone Forms: Congestive Heart Failure, Patient Portal/API, Stroke Signs & Symptoms, Surgery Discharge Discharge Data Primary Care Provider: Kalie Barragan Quality VTE Deep Vein Thrombosis/Pulmonary Embolism Present on Admission: No
[2024-09-16 08:36] VITALS: O2SAT 96
[2024-09-16] MEDS: AMIODARONE 200 MG TABLET PO (08:37)
[2024-09-16 08:38] VITALS: BP 128/62
[2024-09-16] MEDS: ASPIRIN EC 81 MG TABLET PO (08:38)
[2024-09-16] MEDS: POTASSIUM CHLORIDE 10 MEQ TAB PO (08:38)
[2024-09-16] MEDS: TRAMADOL 50 MG TABLET PO (08:38)
[2024-09-16] MEDS: CHOLECALCIFEROL (VITAMIN D3) 1,000 UNIT TABLET 2000 UNIT PO (08:38)
[2024-09-16] MEDS: DOCUSATE 100 MG CAPSULE PO (08:38)
[2024-09-16] MEDS: LOSARTAN 50 MG TABLET PO (08:38)
[2024-09-16 08:42] LABS: Hematocrit 27.4 % (36-46); Hemoglobin 9.3 g/dL (12.0-16.0)
--- NOTE | 2024-09-16 11:27 | PT.IPTN ---
Current Diagnoses Presence of right artificial hip joint (09/14/24) Surgery Performed Operation Date: 09/14/24 11:45 Actual Procedures p ORIF fracture of greater trochanter (right)(Right) - Kimberlyn Caro MD Physical Therapy Treatment Note M2 PT-IP Current Condition Start: 09/15/24 11:57 Freq: NEEDED Status: Active Protocol: Document 09/15/24 10:00 DLM (Rec: 09/15/24 12:22 DLM [id number]) Physical Therapy Current Condition Current Condition Evaluation Date 09/15/24 Treatment Diagnosis right femur ORIF 09/14/24 Onset Date 09/14/24 M3 PT-IP Subjective Start: 09/15/24 11:57 Freq: NEEDED Status: Active Protocol: Document 09/16/24 11:27 DLM (Rec: 09/16/24 12:01 DLM [id number]) Subjective Physical Therapy Visit Type Type Treatment Note Visit Start Time 10:45 Visit Stop Time 11:27 Notes 42 min Number of REAL ESTATE ASSISTANT Visits 0 Physical Therapy Visit Comments Patient Comments She has not been eating well here. She was able to sleep last night. She thinks the pain medication is making her feel tired and her head feels a little funny. Patient Goals Discharge home. Therapy Pain Assessment Pain When Pain Assessed During Mobility Pain Present Pain Present Pain Reported Location Right hip Intensity 5 Scale Used Numeric (0 - 10) Description Aching,Tender,Tightness,With Movement Pain Behaviors Facial Grimacing,Guarding, Wincing Pain Management Techniques Modification of Treatment,Re- positioning,Timing of Activity with Medications M4 PT-IP Mobility and Gait Start: 09/15/24 11:57 Freq: NEEDED Status: Active Protocol: Document 09/16/24 11:27 DLM (Rec: 09/16/24 12:01 DLM [id number]) PT-Bed Mobility Assessment Supine to Sit Supine to Sit Minimal Assistance Sit to Supine Sit to Supine Minimal Assistance Scooting Scooting to Edge of Bed Independent PT-Transfer Assessment Sit to and From Stand Sit to and from Stand Standby Assistance,Use of Upper Extremities Equipment Transfer Assistive Device Gait Belt,Front Wheeled Walker Transfers Transfer Destination Bed Transfer Technique Stand Step Pivot Transfer Ability Level of Assist Standby Assistance,Use of Upper Extremities Comments Mobility Comments She is slow with sit to stand and may need 2-3 attempts but she demonstrates safe technique with good use of her UEs and the FWW. Noted she has a scratchy quality to her voice this visit that she did not have yesterday. She is very attentive to safety issues but does ask for repetition of education. Gait Assessment Gait Gait Assistance Required: Standby Assistance Distance (Feet) 110 Able to Maintain Weight Bearing Status Yes During Gait Assistive Devices Assistive Device Gait Belt,Front Wheeled Walker Gait Deviations General Gait Pattern Antalgic,Decreased Stride Length,Decreased Feet Clearance Factors Limiting Gait Function Factors Limiting Gait Function Decreased Activity Tolerance, Decreased Strength,Limited Range of Motion,Pain,Poor Balance Comments Gait Comments Her feet clearance gets worse as she fatigues with mild scuffing of bilateral feet. She demonstrates good use of her UE's on the FWW but she reports her UE's get tired. She was able to ambulate in her room then after a seated rest she ambulated in the ardon . Stair Climbing Assessment Comments Stair Climbing Comments she reports no stairs at home PT-Balance Assessment Sitting Balance and Reactions Static Sitting Balance Ability Normal Dynamic Sitting Balance Ability Normal Standing Balance and Reactions Static Standing Balance Ability Good Dynamic Standing Balance Ability Good Device Used FWW M5 PT-IP Objective Assessments Start: 09/15/24 11:57 Freq: NEEDED Status: Active Protocol: Document 09/15/24 10:00 DLM (Rec: 09/15/24 12:22 DLM [id number]) Orientation Orientation/Cognition Level of Alertness Alert Orientation Name,Age,Birthday,Month,Date, Year,Day of Week,Place, Situation Language Function Ability Hard of Hearing Safety Awareness Understands Safety Issues Memory Description Short Term Impaired Comments she believes she is forgetful this AM related to pain medications Gross Range of Motion Upper Extremity ROM Assessment Within Functional Limits Lower Extremity ROM Assessment Right Impaired Impairments pain limits hip movements, also limited by hip precautions Strength Upper Extremity Strength Assessment Within Functional Limits Lower Extremity Strength Assessment Right Impaired Hip hip flex 2+/5, hip abduction not assessed due to post-op limitations Knee ext 4-/5 with pain Ankle DF 4+/5 Coordination Assessment Gross Coordination Gross Coordination WNL Sensation Assessment Sensation Gross Sensation WNL Muscle Tone Muscle Tone WNL Yes M6 PT-IP Treatment Start: 09/15/24 11:57 Freq: NEEDED Status: Active Protocol: Document 09/16/24 11:27 DLM (Rec: 09/16/24 12:01 [facility] [id number]) Physical Therapy Treatment Exercises Exercises Ankle Pumps,Gluteal Sets,Quad Sets,Heel Slides,Short Arc Quads Education Education Provided Precautions,Weight Bearing Status,Post-Op Packet,Safety Other Treatments Other Treatment Performed Her is present for therapy session. Her Daughter is also at the hospital today and plans to help get the pt home. Pt and family coordinating with nursing to manage ferry boarding this afternoon. M7 PT-IP Assessment and Plan Start: 09/15/24 11:57 Freq: NEEDED Status: Active Protocol: Document 09/16/24 11:27 DLM (Rec: 09/16/24 12:01 [facility] [id number]) PT Summary Assessment and Plan Summary Impairments Pain,ROM,Strength,Balance, Cognition,Bed Mobility, Transfers,Gait,Activity Tolerance Progress Towards Goals Slow Progress due to Activity Tolerance Assessment Summary Rebecca shows good but slow progress today. She reports no pain at rest and up to 5/10 pain with activity in right hip area. Noted increased bruising in right posterior calf area in addition to the old bruising she has on the thigh and around her knee in right LE. Pt reports she has had bruising since her first surgery in Jul. She continues to need assistance to get her right LE in and out of bed. She demonstrates safe use of the FWW for gait. She shows good awareness of her posterior hip precautions and to avoid hip abduction exercises. Continue to recommend discharge home with assist from her Spouse and home health therapy. Goals Bed Mobility Goal Independent Transfer Goal Independent,Front Wheeled Walker Gait Goal Independent,Front Wheel Walker Gait Distance 100 feet Other Goals demonstrate posterior hip precautions during functional mobility Days to Meet Goals 5 Frequency of Treatment Frequency Of Treatment Once a Day Treatment Plan Physical Therapy Treatment Plan Bed Mobility Training,Transfer Training,Gait Training, Therapeutic Exercise,Balance Retraining,Post Op Education, Discharge Planning,Hot or Cold Pack,Neuromuscular Re-ed Precautions Posterior Hip Precautions No Hip Flexion > 90 degrees,No Hip Internal Rotation,No Hip Adduction Other Precautions No hip abduction exercises due to hip abductor muscle tear right hip unipolar hip replacement 08/14/24 Weight Bearing Status Weight Bearing Status Partial Weight Bearing Allowed Weight Bearing Amount (enter % protected weight bearing right or #) (%) LE with FWW post-op Recommendations To Nursing Amount of Assist Needed 1 Person Assist Discharge Recommendations PT Discharge Recommendations Home with Assistance,Home Health Other Discharge Recommendations pt should use her FWW at discharge. Has help from her Spouse at discharge Transportation Needs at Discharge Private Vehicle - PT assist 1P
--- NOTE | 2024-09-16 11:45 | CM.DPC ---
DCP Discharge Home with HH Per Ortho PA, pt's H&H repeat lab now stable and able to discharge home today with no identified barriers to discharge. Per PT, recommending home with assist and HH. KEELY met bedside with pt, spouse, and adult Dtr Malu and they confirm they are agreeable with d/c to home today and Dtr will drive her vehicle over as well to assist with getting pt in the home and will stay through the weekend and then other family will come to provide assist and take turns. KEELY provided the [facility] brochure and family plans to try to catch the [address] ferry back to Thursday and Priority Board pass provided. Family very appreciative. RN updated and will provide discharge instructions soon for family to transport pt home. KEELY updated [facility] on pt discharge and sent F2F and d/c summary and HH orders. Plan: Patient to d/c home today via family POV back to Thursday with [facility] . RAVINDER Montes
--- NOTE | 2024-09-16 12:21 | OT.IP.TRT ---
Current Diagnoses Presence of right artificial hip joint (09/14/24) Surgery Performed Operation Date: 09/14/24 11:45 Actual Procedures p ORIF fracture of greater trochanter (right)(Right) - Kimberlyn Caro MD Occupational Therapy Treatment Note M2 OT-IP Current Condition Start: 09/15/24 11:54 Freq: Status: Active Protocol: Document 09/15/24 11:54 [facility] (Rec: 09/15/24 12:11 [facility] [id number]) Occupational Therapy Current Condition Current Condition Evaluation Date 09/15/24 Treatment Diagnosis S/P R ORIF HIp Diagnosis Onset Date 09/14/24 Post Operative Precautions Posterior Hip Precautions No Hip Flexion > 90 degrees,No Hip Internal Rotation,No Hip Adduction Other Precautions NO hip abductor strengthening Weight Bearing Status Weight Bearing Status Partial Weight Bearing Allowed Weight Bearing Amount (enter % Protected WB with FWW or #) (%) M3 OT- IP Subjective and Pain Start: 09/15/24 11:54 Freq: Status: Active Protocol: Document 09/16/24 12:22 [facility] (Rec: 09/16/24 12:35 [facility] [id number]) OT- Subjective Occupational Therapy Visit Type Type Treatment Note Visit Start Time 09:40 Visit Stop Time 12:21 Notes Pt seen from [id number], 1145- 1221. Occupational Therapy Visit Comments Patient Comments Pt having to use the bathroom for the first session and able to do caregiver training with family needs for the second time. Patient/Caregiver Goals TO go home. OT Pain Assessment Pain When Pain Assessed During Mobility Pain Present Pain Present Pain Reported Location Right hip Pain Behaviors Facial Grimacing,Holding Area M4 OT- IP ADL's Start: 09/15/24 11:54 Freq: Status: Active Protocol: Document 09/16/24 12:22 [facility] (Rec: 09/16/24 12:35 [facility] [id number]) OT ADL-Dressing General Eval Lower Body Dressing Ability Moderate Assistance Areas Needing Assistance Underpants/Brief,Socks,Shoes Comments OT Dressing Comments Pt able to use the sock aid. Went over technique to huy the RLE first and and take out last. OT ADL-Toileting General Evaluation Toileting Ability Minimal Assistance Comments OT Toileting Comments Assist to help pull her brief up over her hips. M5 OT- IP IADL's Start: 09/15/24 11:54 Freq: Status: Active Protocol: Document 09/15/24 11:54 [facility] (Rec: 09/15/24 12:11 [facility] [id number]) OT-Instrumental Activities of Daily Living Home Safety Awareness Awareness of Need for Assistance at Home Good Awareness Home Safety Comments Pt a little groggy a this time but aware to call out to her for assist if needed at home. Meal Preparation Meal Preparation Comments Pt will need assist. Registered Nurse Nursery Registered Nurse Nursery Comments Pt will need assist. M6 OT- IP Functional Cognition Start: 09/15/24 11:54 Freq: Status: Active Protocol: Document 09/16/24 12:22 [facility] (Rec: 09/16/24 12:35 [facility] [id number]) Cognitive Factors Limiting Selfcare Function Cognitive Comments Cognitive Assessment Comments Pt still needing reassurance for safety needs. M7 OT- IP Mobility and Balance Start: 09/15/24 11:54 Freq: Status: Active Protocol: Document 09/16/24 12:22 [facility] (Rec: 09/16/24 12:35 [facility] [id number]) OT- Bed Mobility Assessment Supine to Sit Supine to Sit Assist Minimal Assistance OT-Transfer Assessment Sit to and From Stand Sit to and from Stand Contact Guard Assistance, Minimal Assistance Transfers Transfer Ability Contact Guard Assistance Technique Transfer Destination Bed,Chair Comments Mobility Comments Assist to get RLE to the edge of the bed. Educated to huy/doff the gait belt and how to transfer and mobilize the pt. 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 OT Strength Comments Strength Comments At least 3+/5 M9 OT- IP Assessment and Plan Start: 09/15/24 11:54 Freq: Status: Active Protocol: Document 09/16/24 12:22 [facility] (Rec: 09/16/24 12:35 [facility] [id number]) OT Summary Assessment and Plan Potential Rehabilitation Potential Good Analytic Complexity at Evaluation Moderate Summary OT Impairments Pain,Strength,Balance, Functional Mobility,Grooming, Dressing,Toileting,Bathing, Toilet Transfers,Shower Transfers,Activity Tolerance Progress Towards Goals Progressing Toward Goals Assessment Summary Able to go over needs for ADL and mobility with pt's family with incorporation for hip precaution needs. Pt to go home today with 24/7 assist and home health. Goals Self-Feeding Goal Independent Grooming Goal Independent Dressing Goal Minimal Assistance Toileting Goal Standby Assistance Bathing Goal Minimal Assistance Toilet Transfer Goal Independent Shower Transfer Goal Standby Assistance Days to Meet Goals 9 Frequency of Treatment Other frequency 5x/week Treatment Plan OT Treatment Plan ADL Training,Functional Mobility,Patient/Family Education,Discharge Planning Discharge Recommendations OT Discharge Recommendations Home with 24/7 Assist Available,Home Health Transportation Needs at Discharge Private Vehicle
[2024-09-16] MEDS: HYDROMORPHONE 2 MG TABLET PO (12:57)
[2024-09-16] MEDS: ONDANSETRON 4 MG/2 ML INJ IV (12:57)
--- NOTE | 2024-09-16 13:27 | PC.NURSE ---
Pt med for discomfort w/ good relief. Dsg to surgical hip CDI SL D/C intact. Home instructions given to pt & family w/ understanding Pt escorted by staff via W/C to waiting vehicle D/C in stable post op status.
== END 2024-09-16 13:08 | disposition home health service (06) | DRG 481 ==
PROVIDERS: Physician Assistant; Admitting Provider Orthopaedic Surgery; PCP Specialist; Referring Provider Orthopaedic Surgery; Visit Provider Orthopaedic Surgery
DX: M80.051A Age-related osteoporosis with current pathological fracture, right femur, initial encounter for fracture (principal); M97.01XA Periprosthetic fracture around internal prosthetic right hip joint, initial encounter; I10 Essential (primary) hypertension; H81.09 Meniere's disease, unspecified ear; Z86.79 Personal history of other diseases of the circulatory system
CPT/HCPCS: 36415; 73502; 76000; 80048; 85014; 85018; 85025; 86850; 86900; 86901; 87070; 87075; 87205; 94760; 97110; 97116; 97162; 97166; 97530; 97535; C1713; J0134; J0330; J0666; J0690; J1100; J1171; J1885; J2405; J2704; J3010; J3410

== ENCOUNTER → 2024-09-28 14:34 | Outpatient (CLI) | payer MEDICARE, OTHER, SELFPAY ==
[2024-09-14 08:53] VITALS: BMI 23.3
[2024-09-28 14:59] LABS: Add Manual Diff / Slide Review NO; Basophils Absolute Auto 100 /uL (0-100); Eosinophils Absolute Auto 200 /uL (0-450); Eosinophils Percent Auto 2.8 % (2-4); Hemoglobin 9.9 g/dL (12.0-16.0); Lymphocytes Absolute Auto 1400 /uL (1100-4500); Lymphocytes Percent Auto 19.8 % (25-40); Mean Corpuscular HGB Conc 33.1 % (30-36); Mean Corpuscular Hemoglobin 31.8 PG (26-34); Mean Corpuscular Volume 96.1 fL (80-100); Monocytes Absolute Auto 500 /uL (0-900); Monocytes Percent Auto 7.4 % (3-14); Neutrophils Absolute Auto 5000 /uL (1500-7000); Platelet Count 281 X10^3/uL (150-400); Red Blood Cell Count 3.12 X10^6/uL (4.0-5.2); Red Cell Distribution Width 15.1 % (11.6-14.8); White Blood Cell Count 7.2 X10^3/uL (4.5-11.0)
[2024-09-28 15:13] LABS: D Dimer 7208 ng/ml (<500)
== END ==
PROVIDERS: PCP Internal Medicine; Referring Provider Orthopaedic Surgery; Visit Provider Orthopaedic Surgery
DX: R79.9 Abnormal finding of blood chemistry, unspecified (principal); R79.1 Abnormal coagulation profile
CPT/HCPCS: 36415; 85025; 85379

== ENCOUNTER → 2024-09-30 12:13 | Outpatient (CLI) | payer MEDICARE, OTHER, SELFPAY ==
[2024-09-14 08:53] VITALS: BMI 23.3
--- NOTE | 2024-09-30 12:15 | DI.US.S_ITS ---
PROCEDURE: US PERIPH VENOUS LOW EXTREM RT INDICATIONS: SEVERE LEG SWELLING S/P R ORIF TECHNIQUE: Real-time imaging, as well as color and pulse Doppler interrogation, were performed of the lower extremity deep veins from the inguinal ligament to the popliteal fossa, with documentation of the visualized calf veins. COMPARISON: None. FINDINGS: The common femoral, femoral, popliteal, and the visualized calf veins are normally compressible, and free of intraluminal thrombus. Color and pulse Doppler demonstrate normal phasic intraluminal flow. There is normal augmentation response to distal compression maneuver. Below the knee, there is a single peroneal vein with internal echoes and noncompressibility. Remainder of the vessels are patent. IMPRESSION: Below the knee peroneal vein deep venous thrombosis Note: Critical results were discussed with Dr. Caro by the floor care technician at 01:22 PM [place] time on 09/30/24 Approved by: Francisco Rao M.D. on 09/30/2024 at 13:16
== END ==
PROVIDERS: PCP Internal Medicine; Referring Provider Orthopaedic Surgery; Visit Provider Orthopaedic Surgery
DX: I82.452 Acute embolism and thrombosis of left peroneal vein (principal); M79.89 Other specified soft tissue disorders
CPT/HCPCS: 93971

== ENCOUNTER 2024-10-04 05:03 | Emergency (ER) | payer MEDICARE, OTHER, SELFPAY ==
[2024-09-14 08:53] VITALS: BMI 23.3
[2024-10-04] VITALS (19 sets, daily range): BP systolic 153–180; BP diastolic 64–79; PULSE 61–68; RESP 12–23; TEMP 36.6–36.8; O2SAT 92–100; BMI 23.3
--- NOTE | 2024-10-04 05:12 | ED.GENADULT ---
HPI - General Adult General Chief complaint: Extremity Problem,Nontraumatic Stated complaint: Hip pain, known blood clot Time Seen by Provider: 10/04/24 05:08 History of Present Illness HPI narrative: 89-year-old female with recent right-sided hip surgery, revision surgery, recent diagnosis of right leg clot on new Eliquis medication, has significantly increasing right hip and leg pain early this morning, flown from [facility] to [facility] for further evaluation, given IV Dilaudid by transfer team, having not had adequate response to her oral Dilaudid taken at home. No new injury recalled. Patient reports July 2024 right hip surgery by local orthopedic surgeon Dr. Caro here at [facility], later revision surgery done 09/07/[address] Caro, on Thursday had right leg pain with new diagnosis of clot, taking new Eliquis anticoagulation. No new injury. No fevers or chills. Denies chest pain or shortness of breath. Related Data Home Medications Medication Instructions Recorded Confirmed acetaminophen 500 mg tablet 500 mg PO QID PRN Pain (Scale 08/03/24 09/12/24 Score 1-3) amlodipine 2.5 mg tablet 2.5 mg PO BEDTIME 08/03/24 09/14/24 cholecalciferol (vitamin D3) 50 50 mcg PO DAILY ##0 08/03/24 09/14/24 mcg (2,000 unit) capsule (Vitamin D3) estradiol 0.01% (0.1 mg/gram) 1 g vaginal 3XW 08/03/24 09/12/24 vaginal cream lidocaine 5 % topical patch 1 patch topical DAILY PRN Back Pain 08/03/24 09/12/24 losartan 50 mg tablet 50 mg PO BID 08/03/24 09/14/24 potassium chloride 10 mEq 10 meq PO DAILY 08/03/24 09/14/24 capsule,extended release pravastatin 20 mg tablet 20 mg DAILY 08/03/24 09/14/24 promethazine 25 mg rectal 25 mg AR Q6H PRN nausea/vomiting 08/03/24 09/12/24 suppository (Promethegan) propranolol 120 mg capsule,24 120 mg PO BEDTIME 08/03/24 09/14/24 hr,extended release triazolam 0.25 mg tablet 0.125 mg PO ONCE PM PRN Dizziness 08/03/24 09/14/24 Or Vertigo amiodarone 200 mg tablet 200 mg PO DAILY 09/12/24 09/14/24 aspirin 81 mg tablet,delayed 81 mg PO DAILY 09/12/24 09/12/24 release Previous Rx's Medication Instructions Recorded ondansetron 4 mg disintegrating 4 mg PO Q8HR PRN Nausea #10 tabs 09/15/24 tablet tramadol 50 mg tablet 50 mg PO Q4HR #40 tabs 09/16/24 Allergies Allergy/AdvReac Type Severity Reaction Status Date / Time bee venom protein (honey bee) Allergy Anaphylaxis Verified 09/14/24 09:39 Penicillins Allergy Rash Verified 09/14/24 09:39 codeine AdvReac Severe Nausea, Verified 09/14/24 09:39 vomiting Narcotics AdvReac Severe Nausea, Uncoded 09/12/24 13:27 vomiting Dilaudid works okay Patient History Medical History (Updated 10/04/24 @ 06:01 by Aristides Soto MD) Occipital neuralgia Meniere's disease History of COVID-19 (05/2023) Aortic aneurysm Anesthesia complication 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 HEAD: Atraumatic. Normocephalic. EYES: Pupils equal round and reactive. Extraocular motions intact. No scleral icterus. No injection or drainage. ENT: Nose without bleeding, purulent drainage. Throat without erythema, tonsillar hypertrophy or exudate. Airway patent. NECK: Trachea midline. Non tender CARDIOVASCULAR: Regular rate and rhythm without murmurs, gallops, or rubs. RESPIRATORY: Clear to auscultation. Breath sounds equal bilaterally. No wheezes, rales, or rhonchi. GASTROINTESTINAL: Abdomen soft, non-tender, nondistended. EXTREMITIES: Ecchymoses right thigh with slight swelling compared to left thigh, patient feels like it is about the same in terms of swelling. Right lateral well healed hip scar. No limb length discrepancy. Good DP pulse right foot. Good cap refill right toes. BACK: Nontender without deformity or crepitance. No flank tenderness. NEURO: AOx3. Motor functions grossly nonfocal SKIN: No rash or erythema of visible areas Initial Vital Signs Initial Vital Signs: Vital Signs Pulse Rate 62 10/04/24 05:08 Blood Pressure 180/79 H 10/04/24 05:08 Pulse Oximetry 94 10/04/24 05:08 Course Orders Ordered: Discontinued Medications Hydromorphone HCl (Hydromorphone 0.5 Mg Inj) 0.5 mg IV NOW ONE Stop: 10/04/24 05:29 Last Admin: 10/04/24 05:30 Dose: 0.5 mg Documented By: ALLISON Hydromorphone HCl (Hydromorphone 0.5 Mg Inj) 0.5 mg IV NOW ONE Stop: 10/04/24 07:31 Last Admin: 10/04/24 07:41 Dose: 0.5 mg Documented By: EDITA POTASSIUM CHLORIDE IN WATER (Potassium Cl 10 Meq/100 Ml Ester) 10 meq in 100 mls @ 100 mls/hr IV Q1H ASHISH Stop: 10/04/24 07:59 Last Infusion: 10/04/24 08:45 Dose: Infused Documented By: Admin: 10/04/24 07:41 Dose: 100 mls/hr Documented By: Infusion: 10/04/24 07:40 Dose: Infused Documented By: Admin: 10/04/24 06:31 Dose: 100 mls/hr Documented By: ALLISON Ondansetron HCl (Ondansetron 4 Mg/2 Ml Inj) 4 mg IV NOW ONE Stop: 10/04/24 08:46 Last Admin: 10/04/24 08:49 Dose: 4 mg Documented By: EDITA Potassium Chloride (Potassium Chloride 20 Meq/15 Ml Udc) 20 meq PO NOW ONE Stop: 10/04/24 06:32 Last Admin: 10/04/24 07:24 Dose: Not Given Documented By: EDITA Promethazine HCl (Promethazine 25 Mg Supp) 25 mg AR NOW ONE Stop: 10/04/24 10:41 Last Admin: 10/04/24 12:04 Dose: Not Given Documented By: KW Vital Signs Vital signs: Vital Signs - 8 hr 10/04/24 12:00 10/04/24 12:30 Temperature 98.2 F Pulse Rate 63 66 Respiratory Rate 12 17 Blood Pressure 166/70 H Pulse Oximetry 100 99 Oxygen Delivery Method Room Air Medical Decision Making Lab Data Lab results reviewed: Yes I reviewed the patient's lab results. 10/04/24 05:14 10/04/24 05:14 Labs: Lab Results 10/04/24 10/04/24 Range/Units 04:00 05:14 WBC 6.7 (4.5-11.0) X10^3/uL RBC 2.75 L (4.0-5.2) X10^6/uL Hgb 8.7 L (12.0-16.0) g/dL Hct 26.0 L (36-46) % MCV 94.5 (80-100) fL MCH 31.7 (26-34) PG MCHC 33.6 (30-36) % RDW 14.4 (11.6-14.8) % Plt Count 260 (150-400) X10^3/uL Neut % (Auto) 69.9 (50-75) % Lymph % (Auto) 17.2 L (25-40) % Grand % (Auto) 8.4 (3-14) % Eos % (Auto) 3.3 (2-4) % Baso % (Auto) 1.2 (0-2) % Neut # (Auto) 4700 (3702-5612) /uL Lymph # (Auto) 1200 (6508-4123) /uL Grand # (Auto) 600 (0-900) /uL Eos # (Auto) 200 (0-450) /uL Baso # (Auto) 100 (0-100) /uL PT 18.3 H (9.4-12.5) SECONDS INR 1.6 H (0.9-1.3) Sodium 137 (137-145) mmol/L Potassium 3.2 L (3.4-5.1) mmol/L Chloride 104 (98-107) mmol/L Carbon Dioxide 27 (22-32) mmol/L BUN 19 H (7-17) mg/dL Creatinine 0.50 L (0.52-1.04) mg/dL Estimated GFR > 60 (>60) mL/min BUN/Creatinine Ratio 38.0 H (6-22) Glucose 158 H (80-110) mg/dL Calcium 8.3 L (8.4-10.2) mg/dL Total Bilirubin 0.7 (0.2-1.3) mg/dL AST 20 (14-36) IU/L ALT 12 (<35) IU/L Alkaline Phosphatase 66 (38-126) U/L Total Protein 5.7 L (6.3-8.2) g/dL Albumin 3.3 L (3.5-5.0) g/dL Globulin 2.4 (1.7-4.1) g/dL Albumin/Globulin Ratio 1.4 (1.0-2.8) Urine RBC 0-1/hpf (0-5/HPF) Urine WBC 0-1/hpf (0-5/HPF) Ur Squamous Epith Cells 1-5 /hpf (0-5/HPF) Urine Bacteria Few (2-10) H (None) Ur Culture Indicated? Cult not indicated Vol Urine Centrifuged 10ml (spun) Urine Dip Bedside Urine Glucose Negative Bedside Urine Bilirubin - Negative Bedside Urine Ketone - Negative Urine Specific [place] 1.015 Bedside Urine Occult Blood +/- Bedside Urine pH 7.0 Bedside Urine Protein - Negative Bedside Urine Urobilinogen - Negative Bedside Urine Nitrite - Negative Bedside Urine Leukocytes - Negative Esterase Point of care testing: Urine Dip Bedside Urine Glucose Negative Bedside Urine Bilirubin - Negative Bedside Urine Ketone - Negative Urine Specific [place] 1.015 Bedside Urine Occult Blood +/- Bedside Urine pH 7.0 Bedside Urine Protein - Negative Bedside Urine Urobilinogen - Negative Bedside Urine Nitrite - Negative Bedside Urine Leukocytes - Negative Esterase Imaging Data Right lower extremity venous Doppler: Radiologist's Impression: [place] [address] Ultrasound Report Signed Patient: Rebecca Carpenter MR#: [id number] : 1935 Acct:[id number] Age/Sex: 89 / F Date of Service: 10/04/24 Loc: ED Accession Number: [id number] Procedure: US periph venous low extrem rt Ordering Provider: Aristides Soto MD PROCEDURE: US PERIPH VENOUS LOW EXTREM RT INDICATIONS: right hip pain, recent surgery, recent dx DVT TECHNIQUE: Real-time imaging, as well as color and pulse Doppler interrogation, were performed of the lower extremity deep veins from the inguinal ligament to the popliteal fossa, with documentation of the visualized calf veins. COMPARISON: [facility], , US PERIPH VENOUS LOW EXTREM RT, 09/30/2024, 12:57. FINDINGS: The common femoral, femoral, popliteal, and the visualized calf veins are normally compressible, and free of intraluminal thrombus. Color and pulse Doppler demonstrate normal phasic intraluminal flow. There is normal augmentation response to distal compression maneuver. IMPRESSION: No findings of lower extremity deep venous thrombosis. Agree with preliminary report. Dictated by: Brendan Lacey M.D. on 10/04/2024 at 9:01 Approved by: Brendan Lacey M.D. on 10/04/2024 at 9:01 Extremity x-ray #1: Radiologist's Impression: [address] [address] XRay Report Signed Patient: Rebecca Carpenter MR#: [id number] : 1935 Acct:[id number] Age/Sex: 89 / F Date of Service: 10/04/24 Loc: ED Accession Number: [id number] Procedure: XR hip w pel if done RT 2V Ordering Provider: Aristides Soto MD PROCEDURE: XR HIP W PEL IF DONE RT 2V INDICATIONS: R hip pain, recent hip surgery TECHNIQUE: 3 views of the hip were acquired. COMPARISON: [facility], CR, XR PELVIS WITH LATERAL HIP RIGHT, 09/28/2024, 13:44. [facility], CR, XR HIP W PEL IF DONE RT 2V, 09/14/2024, 15:28. [facility], CR, XR HIP W PEL IF DONE RT 2V, 09/14/2024, 14:38. FINDINGS AND IMPRESSION: Status post right hip arthroplasty revision, with similar radiographic appearance compared to prior. Moderate left hip arthrosis. Again seen are adjacent soft tissue calcifications. If there is further concern, consider cross-sectional imaging No significant changes from the preliminary report Dictated by: Brendan Lacey M.D. on 10/04/2024 at 8:57 Approved by: Brendan Lacey M.D. on 10/04/2024 at 8:59 Extremity x-ray #2: Radiologist's Impression: Close Femur X-Ray (Signed) Brendan Lacey - 10/04/24 Hip X-Ray (Signed) AbhijitBrendan - 10/04/24 Vascular Ultrasound (Signed) AbhijitBrendan - 10/04/24 Launch?Image [address] [address] XRay Report Signed Patient: Rebecca Carpenter MR#: [id number] : 1935 Acct:[id number] Age/Sex: 89 / F Date of Service: 10/04/24 Loc: ED Accession Number: [id number] Procedure: XR femur RT min 2V Ordering Provider: Aristides Soto MD PROCEDURE: XR FEMUR RT MIN 2V INDICATIONS: recent surgery R hip, then revision, inc pain, no new trauma TECHNIQUE: 2 views of the femur were acquired. COMPARISON: None. FINDINGS AND IMPRESSION: Advanced degenerative changes of the knee partially seen. No acute fracture or dislocation identified in the mid to distal femur. If there is high concern for occult injury, consider repeat radiography or cross-sectional imaging. Hip findings are separately dictated. No significant changes from the preliminary report. Dictated by: Brendan Lacey M.D. on 10/04/2024 at 9:00 Approved by: Brendan Lacey M.D. on 10/04/2024 at 9:01 [facility] Narrative Medical decision making narrative: 89-year-old female with recent right hip surgery July [address] Caro here at [facility], subsequent revision surgery 09/07/[address] Caro here at [facility], recent diagnosis of right leg clot having started new Eliquis anticoagulation, flown early this morning from her home [facility] by [place] [facility] due to increase right hip and thigh pain. No chest pain or shortness of breath. No tachycardia noted on triage. Afebrile. Screening labs requested, x-ray right hip/femur, ultrasound right lower extremity requested. Patient is still in pain, we will give additional IV Dilaudid dose. Consider consultation with her surgeon Dr. Caro during regular hours later this morning. Screening labs: White blood cell count normal, hemoglobin 8.7, renal function normal, low potassium 3.2 noted, other electrolytes normal, glucose normal. Sono tech verbal report, no obvious clot identified on right lower extremity venous Doppler study. Await radiologist report. Ultrasound right lower venous Doppler. Impressions: ?Negative for right lower extremity deep vein thrombosis. ? See teleradiology report X-rays right hip in femur show ORIF changes, seems well seated, no obvious fracture, ED wet read. Await radiologist report. IV potassium chloride while awaiting imaging chest results, later additional oral potassium given. X-rays of the right hip with AP pelvis and also remainder of right femur. No acute changes, postoperative changes noted. See tele radiology reports. 0800, case discussed with her orthopedist Dr. Caro who was able to review films, made aware of ultrasound study being negative as well, unclear cause of her pain, might have been overactive, can see her in this next week in follow up, no advanced imaging indicated at this time. Patient groggy from IV Dilaudid doses, uses walker at home, trial of walker. PT consult requested. PT assessment without recommendation for NHP, they declined NHP when offered. Walker trial, DC home, advised toe touch only RLE with walker use ambulation. FU orthopedics Dr Caro as schedule. Home with . Discharge Plan Departure Patient Disposition: Home Clinical Impression: Pain in right hip, History of hip surgery Activity Restrictions/Additional Instructions: History of prior right hip surgery in July, revision last month, both at [facility] by your orthopedic surgeon Dr. Caro, recent diagnosis of suspected blood clot to the right leg, having started Eliquis anticoagulation. Increased right-sided leg pain, no new injury. Apparently had been using walker with ambulation, though you might have been advised to have only partial weight-bearing and not full weight-bearing activities, there could be some overuse post surgery causing some pain. Screening x-rays without obvious fractures. Ultrasound venous Doppler today did not show any clot present today. Case was discussed with your surgeon Dr. Caro who feels that you might have some overuse and advised only partial weight-bearing on the affected right leg, and to see her this next week in clinic. Physical therapy evaluation, did not feel that you met criteria for group home placement, you did not want to go to a group home. Take your oral Dilaudid as needed for pain control. Follow up with Orthopedic surgery as planned. Return to this/nearest emergency department for any change worsening symptoms or any concerns prior. Prescriptions: No Action propranolol 120 mg capsule,extended release 24hr 120 mg PO BEDTIME losartan 50 mg tablet 50 mg PO BID Patient Comments: unsure if 25mg bid or 50mg bid or 50mg daily amlodipine 2.5 mg tablet 2.5 mg PO BEDTIME acetaminophen 500 mg Tablet 500 mg PO QID PRN (Reason: Pain (Scale Score 1-3)) cholecalciferol (vitamin D3) [Vitamin D3] 50 mcg (2,000 unit) Capsule 50 mcg PO DAILY Qty: 0 potassium chloride 10 mEq capsule, extended release 10 meq PO DAILY lidocaine 5 % adhesive patch,medicated 1 patch topical DAILY PRN (Reason: Back Pain) pravastatin 20 mg tablet 20 mg DAILY estradiol 0.01 % (0.1 mg/gram) cream 1 g vaginal 3XW triazolam 0.25 mg tablet 0.125 mg PO ONCE PM PRN (Reason: Dizziness Or Vertigo) promethazine [Promethegan] 25 mg suppository 25 mg AR Q6H PRN (Reason: nausea/vomiting) aspirin 81 mg tablet,delayed release (DR/EC) 81 mg PO DAILY amiodarone 200 mg Tablet 200 mg PO DAILY ondansetron 4 mg Tablet,Disintegrating 4 mg PO Q8HR PRN (Reason: Nausea) Qty: 10 0RF tramadol 50 mg Tablet 50 mg PO Q4HR Qty: 40 0RF Referrals: Leanna Ragland MD [Primary Care Provider] - Kimberlyn Caro MD [Physician] - Stand Alone Forms: Patient Portal/API/Survey
--- NOTE | 2024-10-04 05:16 | DI.RAD.S_ITS ---
PROCEDURE: XR HIP W PEL IF DONE RT 2V INDICATIONS: R hip pain, recent hip surgery TECHNIQUE: 3 views of the hip were acquired. COMPARISON: [facility], CR, XR PELVIS WITH LATERAL HIP RIGHT, 09/28/2024, 13:44. [facility], CR, XR HIP W PEL IF DONE RT 2V, 09/14/2024, 15:28. [facility], CR, XR HIP W PEL IF DONE RT 2V, 09/14/2024, 14:38. FINDINGS AND IMPRESSION: Status post right hip arthroplasty revision, with similar radiographic appearance compared to prior. Moderate left hip arthrosis. Again seen are adjacent soft tissue calcifications. If there is further concern, consider cross-sectional imaging No significant changes from the preliminary report Dictated by: Brendan Lacey M.D. on 10/04/2024 at 8:57 Approved by: Brendan Lacey M.D. on 10/04/2024 at 8:59
--- NOTE | 2024-10-04 05:16 | DI.US.S_ITS ---
PROCEDURE: US PERIP VENOUS LOW EXTREM RT INDICATIONS: right hip pain, recent surgery, recent dx DVT TECHNIQUE: Real-time imaging, as well as color and pulse Doppler interrogation, were performed of the lower extremity deep veins from the inguinal ligament to the popliteal fossa, with documentation of the visualized calf veins. COMPARISON: [facility], [facility] VENOUS LOW EXTREM RT, 09/30/2024, 12:57. FINDINGS: The common femoral, femoral, popliteal, and the visualized calf veins are normally compressible, and free of intraluminal thrombus. Color and pulse Doppler demonstrate normal phasic intraluminal flow. There is normal augmentation response to distal compression maneuver. IMPRESSION: No findings of lower extremity deep venous thrombosis. Agree with preliminary report. Dictated by: Brendan Lacey M.D. on 10/04/2024 at 9:01 Approved by: Brendan Lacey M.D. on 10/04/2024 at 9:01
[2024-10-04] MEDS: HYDROMORPHONE 0.5 MG INJ IV ×2 (05:30→07:41)
[2024-10-04 05:32] LABS: Add Manual Diff / Slide Review NO; Basophils Absolute Auto 100 /uL (0-100); Basophils Percent Auto 1.2 % (0-2); Eosinophils Absolute Auto 200 /uL (0-450); Eosinophils Percent Auto 3.3 % (2-4); Hemoglobin 8.7 g/dL (12.0-16.0); Lymphocytes Absolute Auto 1200 /uL (1100-4500); Lymphocytes Percent Auto 17.2 % (25-40); Mean Corpuscular HGB Conc 33.6 % (30-36); Mean Corpuscular Hemoglobin 31.7 PG (26-34); Mean Corpuscular Volume 94.5 fL (80-100); Monocytes Absolute Auto 600 /uL (0-900); Monocytes Percent Auto 8.4 % (3-14); Neutrophils Absolute Auto 4700 /uL (1500-7000); Neutrophils Percent Auto 69.9 % (50-75); Platelet Count 260 X10^3/uL (150-400); Red Blood Cell Count 2.75 X10^6/uL (4.0-5.2); Red Cell Distribution Width 14.4 % (11.6-14.8); White Blood Cell Count 6.7 X10^3/uL (4.5-11.0)
--- NOTE | 2024-10-04 05:32 | DI.RAD.S_ITS ---
PROCEDURE: XR FEMUR RT MIN 2V INDICATIONS: recent surgery R hip, then revision, inc pain, no new trauma TECHNIQUE: 2 views of the femur were acquired. COMPARISON: None. FINDINGS AND IMPRESSION: Advanced degenerative changes of the knee partially seen. No acute fracture or dislocation identified in the mid to distal femur. If there is high concern for occult injury, consider repeat radiography or cross-sectional imaging. Hip findings are separately dictated. No significant changes from the preliminary report. Dictated by: Brendan Lacey M.D. on 10/04/2024 at 9:00 Approved by: Brendan Lacey M.D. on 10/04/2024 at 9:01
[2024-10-04 05:35] LABS: INR 1.6 (0.9-1.3); Prothrombin Time 18.3 SECONDS (9.4-12.5)
[2024-10-04 05:45] LABS: Alanine Aminotransferase 12 IU/L (<35); Albumin 3.3 g/dL (3.5-5.0); Albumin Globulin Ratio 1.4 (1.0-2.8); Alkaline Phosphatase 66 U/L (38-126); Aspartate Aminotransferase 20 IU/L (14-36); Bilirubin Total 0.7 mg/dL (0.2-1.3); Blood Urea Nitrogen 19 mg/dL (7-17); Calcium 8.3 mg/dL (8.4-10.2); Carbon Dioxide 27 mmol/L (22-32); Chloride 104 mmol/L (98-107); Estimated Glomerular Filt Rate > 60 mL/min (>60); Globulin 2.4 g/dL (1.7-4.1); Glucose 158 mg/dL (80-110); HEMOLYSIS < 15 (0-50); Potassium 3.2 mmol/L (3.4-5.1); Sodium 137 mmol/L (137-145); Total Protein 5.7 g/dL (6.3-8.2)
[2024-10-04] MEDS: POTASSIUM CHLORIDE IN WATER 10 MEQ/100 ML PIGGYBACK 100 MEQ IV ×2 (06:31→07:41)
--- NOTE | 2024-10-04 07:31 | PC.NURSE ---
provider aware pt refused oral potassium.
[2024-10-04] MEDS: ONDANSETRON 4 MG/2 ML INJ IV (08:49)
[2024-10-04 09:16] LABS: Urine Volume 10mL (spun)
[2024-10-04 09:19] LABS: RBC Urine 0-1/HPF (0-5/HPF); WBC Urine 0-1/HPF (0-5/HPF)
[2024-10-04 09:20] LABS: Bacteria Urine Few (2-10); Culture Indicated Urine Cult Not Indicated; Squamous Epithelial Cell Urine 1-5 /HPF (0-5/HPF)
--- NOTE | 2024-10-04 09:27 | PC.NURSE ---
Right hip pain; pt states it does not feel normal 2 months later having this pain. Pt reports any movement it hurts. Pt states she thinks she has a UTI; pt informed that original poc looked okay. Pt states she cannot manage her pain at home due to stomach upset; however pt denies taking antiemetics with pain meds. Pt reports she does not want to go to rehab but states her pain seems unbearable at home. Pt reports the pain originally came on when she was laying in bed. Pt state she does not know if she over exerted herself; pt states she was given little direction post surgery. Pt able to wiggle toes. GCS 15. Respirations regular and unlabored.
--- NOTE | 2024-10-04 09:45 | PT.IIE ---
Surgical History (Last Updated 09/12/24 @ 13:30 by Rebecca Bragg RN) History of hip surgery (08/04/24) History of hysterectomy Hx of bilateral cataract extraction Hx of lumpectomy Hx of partial thyroidectomy Hx of umbilical hernia repair Medical History (Last Updated 09/12/24 @ 14:56 by Rebecca Bragg RN) Anesthesia complication Aortic aneurysm Carcinoma in situ of left breast (~2004) Closed fracture of right hip History of COVID-19 (05/2023) Hypertension, uncontrolled Meniere's disease Monoclonal gammopathy Occipital neuralgia Paget disease Physical Therapy Inpatient Evaluation/Re-Eval M1 PT/OT-IP Prior Functional Status Start: 10/04/24 12:09 Freq: Status: Discharge Protocol: Document 10/04/24 09:45 AB (Rec: 10/04/24 12:42 AB [id number]) Medical Review Prior Functional Status Medical History Reviewed Yes Communication able to make needs known; slightly drowsy Mobility and Gait spouse also present and provided some of pt's info: pt stated that she was modified independent with all mobilities and ambulation using fWW but has intense pain from yesterday and unable to move Social History Household Members spouse Living Arrangements House Number of Floors (Floors) One Floor Number of Stairs To Enter/Railing? 1 step to enter Home Environment Standard Height Toilet,Walk in Shower Home Equipment Front Wheel Walker,Raised Toilet Seat w/Armrests,Shower Seat with Backrest,Hand Held Shower M2 PT-IP Current Condition Start: 10/04/24 12:09 Freq: Status: Discharge Protocol: Document 10/04/24 09:45 AB (Rec: 10/04/24 12:42 AB [id number]) Physical Therapy Current Condition Current Condition Evaluation Date 10/04/24 Treatment Diagnosis R hip pain; difficulty in walking Onset Date 10/04/24 M3 PT-IP Subjective Start: 10/04/24 12:09 Freq: Status: Discharge Protocol: Document 10/04/24 09:45 AB (Rec: 10/04/24 12:42 AB [id number]) Subjective Physical Therapy Visit Type Type Initial Evaluation Visit Start Time 09:45 Visit Stop Time 10:50 Number of SKIRT CLIPPER Visits 0 Physical Therapy Visit Comments Patient Comments c/o R hip pain and stated that she feels like she has a UTI Therapy Pain Assessment Pain When Pain Assessed At Rest Pain Present Pain Present Pain Reported Location Right hip Intensity 6 Scale Used increases to 10/10 with movement Pain Management Techniques Distraction,Modification of Treatment,Re-positioning, Timing of Activity with Medications M4 PT-IP Mobility and Gait Start: 10/04/24 12:09 Freq: Status: Discharge Protocol: Document 10/04/24 09:45 AB (Rec: 10/04/24 12:42 AB [id number]) PT-Bed Mobility Assessment Supine to Sit Supine to Sit Maximum Assistance,1 Person Assistance Sit to Supine Sit to Supine Maximum Assistance,1 Person Assistance PT-Transfer Assessment Sit to and From Stand Sit to and from Stand Minimal Assistance,1 Person Assistance,Use of Upper Extremities Equipment Transfer Assistive Device Gait Belt,Front Wheeled Walker Orthotic/Prosthetic Devices or Brace: No Transfers Transfer Destination Bedside Commode Transfer Technique Stand Step Pivot Transfer Ability Level of Assist Minimal Assistance,1 Person Assistance,Use of Upper Extremities Comments Mobility Comments pt in the ED. talked with nurse and ED doctor regarding pt's R hip precautions and PWB . per ED doctor, continue with R hip posterior precautions and PWB on RLE. checked on pt and spouse in room. obtained PLOF and home set up. educated pt on posterior hip precautions and RLE PWB. pt stated that she was not informed last time that she is PWB on RLE. pt c/ o R hip pain and increases with movement. pt stated that she might have overdone with her exercises yesterday and putting more weight on it with use of FWW and now with increase pain. pt completed supine to sit max A and max cues. able to sit on EOB CGA. educated pt on how to do sit<>stand while maintain PWB on RLE. pt completed sit to stand min A and cues. pt stated that she needs to use the toilet. nurse positioned bedside commode next to pt. pt completed step transfer to commode min A using fWW. Assisted pt with brief/pants management. sit to stand from commode min A and max cues for posterior precautions and PWB. pt ambulated to chair using FWW min A ~ 2ft. spouse in room and caregiver training conducted. spouse was able to assist pt with sit to stand and ambulation in room using fWW ~ 20ft. educated on cueing pt for precautions, weight bearing and safety. pt sat on EOB. c/o nausea. sit to supine max A for elevating RLE to bed. positioned pt in bed. informed pt regarding d/c recommendations: SNF vs 19/01 assist at home, HHPT and DME needs. informed pt and spouse regarding getting a w/c to use for getting into the house since pt is PWB on RLE and has one step to enter the house and also limited with activity tolerance due to pain and pt and may not be able to walk too far. pt and spouse understood and spouse stated that he can get a w/c for pt. pt stated that she will think about SNF rehab but currently, she does not want to go to a SNF but also stated that she does not feel like she is ready to go home. left pt with spouse and nurse in room. Gait Assessment Gait Gait Assistance Required: Minimum Assistance Distance (Feet) 20 Able to Maintain Weight Bearing Status Yes During Gait Assistive Devices Assistive Device Gait Belt,Front Wheeled Walker Orthotic/Prosthetic Devices or Brace: No Gait Deviations General Gait Pattern Antalgic,Decreased Stride Length,Step-to Gait Factors Limiting Gait Function Factors Limiting Gait Function Decreased Strength,Difficulty Following Directions,Limited Range of Motion,Pain,Poor Balance,Poor Safety Awareness PT-Balance Assessment Sitting Balance and Reactions Static Sitting Balance Ability Good Dynamic Sitting Balance Ability Good Standing Balance and Reactions Static Standing Balance Ability Fair Dynamic Standing Balance Ability Poor Device Used FWW M5 PT-IP Objective Assessments Start: 10/04/24 12:09 Freq: Status: Discharge Protocol: Document 10/04/24 09:45 AB (Rec: 10/04/24 12:42 AB [id number]) Orientation Orientation/Cognition Level of Alertness Alert Orientation Name Language Function Ability No Deficits Noted Safety Awareness Decreased Safety Awareness Memory Description Short Term Impaired Gross Range of Motion Lower Extremity ROM Assessment Right Impaired Impairments Limited testing on RLE due to c/o increase pain with movement Strength Lower Extremity Strength Assessment Right Impaired Hip 3-/5 Knee 3+/5 Sensation Assessment Sensation Sensation Description Numbness Comments Sensation Comments chronic numbness on toes Muscle Tone Muscle Tone WNL Yes M6 PT-IP Treatment Start: 10/04/24 12:09 Freq: Status: Discharge Protocol: Document 10/04/24 09:45 AB (Rec: 10/04/24 12:42 AB [id number]) Physical Therapy Treatment Education Education Provided Precautions,Weight Bearing Status,Safety M7 PT-IP Assessment and Plan Start: 10/04/24 12:09 Freq: Status: Discharge Protocol: Document 10/04/24 09:45 AB (Rec: 10/04/24 12:42 AB [id number]) PT Summary Assessment and Plan Potential Rehabilitation Potential Fair Status of Condition at Evaluation Evolving Summary Impairments Pain,ROM,Strength,Balance, Coordination,Sensation,Tone, Cognition,Bed Mobility, Transfers,Gait,Activity Tolerance Assessment Summary pt is an 89 y/o F who presented with R hip pain in the ED. pt with h/o R SAMY posterior 08/04/24 and underwent R hip ORIF 09/14/24. Pt with R hip posterior precautions and is PWB after R hip ORIF. pt now presented with increase R hip pain but imaging was unremarkable. pt requiring max A for bed mobility, min A for transfers and ambulation using FWW. educated pt and spouse regarding R hip posterior precautions and PWB on RLE. pt will benefit from SNF but pt does not want to go to SNF but also stated that she does not feel she is ready to go home. informed pt and spouse that if they decided for her to go home, she will need 24/7 assist, use of FWW and w/c for entering the house and long distance mobility and HHPT. spouse demonstrated ability to assist pt. nurse aware of pt's mobility level. Goals Bed Mobility Goal Independent Transfer Goal Independent,Front Wheeled Walker Gait Goal Independent,Front Wheel Walker Gait Distance 100 Days to Meet Goals 10 Frequency of Treatment Frequency Of Treatment Once a Day Treatment Plan Physical Therapy Treatment Plan Bed Mobility Training,Transfer Training,Gait Training, Therapeutic Exercise,Balance Retraining,Post Op Education, Discharge Planning,Hot or Cold Pack,Neuromuscular Re-ed, Coordination Retraining,Manual Therapy Precautions Posterior Hip Precautions No Hip Flexion > 90 degrees,No Hip Internal Rotation,No Hip Adduction Weight Bearing Status Weight Bearing Status Partial Weight Bearing Allowed Weight Bearing Amount (enter % RLE PWB or #) (%) Recommendations To Nursing Amount of Assist Needed 1 Person Assist Discharge Recommendations PT Discharge Recommendations Home with 24/7 Assist Available,Home Health,SNF Rehab,Home vs SNF Equipment Needed for Home Before w/c Discharge Transportation Needs at Discharge Private Vehicle - PT assist 1
--- NOTE | 2024-10-04 12:28 | PC.NURSE ---
Long discussion with pt multiple times about admission to rehab vs. going home and having home health set up. Pt adamant that she does not want admission to rehab and states she has the resources to set up at home physical therapy. Pt educated numerous times on proper body mechanics and partial weight bearing status. Pt reports she has not been doing this at home. Pt asking to speak with MD Soto; Charles states he is not able to get to the room but states the proposition is still the same admit for rehab or home. Pt educated on nausea and pain control. Pt asking for ferry pass; pt informed ferry passes from ER have been stopped. Pt advised to speak with ferry staff about situation getting home.
== END 2024-10-04 12:31 | disposition home or self-care (01) ==
PROVIDERS: Emergency Provider Emergency Medicine; PCP Internal Medicine
DX: M25.551 Pain in right hip (principal); Z79.01 Long term (current) use of anticoagulants; Z96.641 Presence of right artificial hip joint
CPT/HCPCS: 73502; 73552; 80053; 81003; 81015; 85025; 85610; 93971; 96365; 96366; 96375; 96376; 97162; 97530; 99285; J1171; J2405